=== PATIENT | male | born 1990 | race Caucasian/White ===

== ENCOUNTER 2019-05-19 13:52 | Observation (INO) | payer SELFPAY ==
[2019-05-19 17:55] VITALS: BMI 36.2
[2019-05-19] MEDS ORDERED: Senokot S 8.6-50 MG TAB PO PRN (19:36)
[2019-05-19] MEDS ORDERED: Acetaminophen 325 MG TAB PO PRN ×2 (19:36→21:23)
[2019-05-19] MEDS ORDERED: Ondansetron ODT 4 MG TAB PO PRN (19:36)
[2019-05-19] MEDS ORDERED: traZODone HCl 50 MG TAB PO PRN (19:40)
[2019-05-19] MEDS ORDERED: Dextrose 5% in Water 1,000 ML IV PRN (19:59)
[2019-05-19] MEDS ORDERED: Dextrose 50% Abboject 50 ML SYRINGE SLOW IVP PRN (19:59)
[2019-05-19] MEDS: Famotidine 20 MG TAB PO SCH (21:04)
[2019-05-19] MEDS: Doxycycline 100 MG CAP PO SCH (21:04)
[2019-05-19] MEDS: HumuLIN 70/30 (300 UNITS/3 ML VIAL) SC SCH (21:32)
[2019-05-19] MEDS: HumaLOG 300 UNITS/3 ML VIAL SC PRN (21:33)
--- NOTE | 2019-05-19 21:57 | PDOC.FPRHP ---
- History of Present Illness Chief Complaint: abdominal pain History of Present Illness: Patient is 28M with PMHx of DM1, hypertrigliceridemia, and multiple admissions for pancreatitis presenting as a transfer from the [facility] for intractable pain/ splenomegaly. Patient reports that the pain began on 05/17 as a sharp stabbing LUQ pain accompanied by the feeling of abdominal fullness. He reports that he has also been having nausea, but denies vomiting. He states he has also been having diarrhea for the past 3-4 days accompanied with blood on the toilet paper when he wipes. He also reports of SOB and some vision changes today s/p opiate administration at the [facility]. Patient denies recent travel. Denies being sick recently. He was seen last week for left arm cellulitis and prescribed a 7-day course of clindamycin, given a prednisone shot, and prescribed a 5 day course of PO prednisone, which he has not taken since he has been hospitalized. - Allergies/Adverse Reactions Allergies Allergy/AdvReac Type Severity Reaction Status Date / Time No Known Allergies Allergy Unverified 05/19/19 17:51 - Home Medications Medication Instructions Recorded Confirmed Type Insulin Aspart [Novolog] 60 unit SQ AC 05/19/19 05/19/19 History - History PMHx:DMI, Hypertrigliceridemia, multiple hospitalizations for pancreatitis PSHx: PTCA march 2019, no CAD FHx: mom: SLE, Brain cancer at age 44 Dad: healthy Social: no etoh for last 6 years, no smoking, no drugs - Review of Systems General: denies: fever/chills, weight/appetite/sleep changes Eyes: reports: vision changes. denies: eye pain ENT: denies: nasal congestion, rhinorrhea Respiratory: reports: shortness of breath. denies: cough Cardiovascular: denies: chest pain, edema Gastrointestinal: reports: nausea, diarrhea, abdominal pain. denies: vomiting Genitourinary: denies: incontinence, dysuria Skin: reports: rashes (LUE cellulitis) Musculoskeletal: denies: pain, tenderness Neurological: denies: numbness, weakness Psychological: denies: anxiety, depression - Vital signs BP: [146/82] HR: [85] RR: [20] Tmax: [99F] Pox: [91]% on [RA] Wt: [131.5kg] - Physical Exam Constitutional: awake, alert and oriented, well developed HEENT: normocephalic and atraumatic, EOMI Neck: supple, trachea midline Chest: no-tender to palpation, no lesions Heart: RRR, normal S1/S2 Lungs: no respiratory distress, good air movement Abdomen: soft, bowel sounds present, other (RUQ tenderness to palpation) Musculoskeletal: normal structure, normal tone Neurological: no focal deficit, normal sensation Skin: no rash/lesions (erythematous rash on Left forearm), good turgor, capillary refill <2 seconds Heme/Lymphatic: no unusual bruising or bleeding, no purpura Psychiatric: normal mood and affect, good judgment and insight FMR H&P: Results - Labs Result Diagrams: 05/20/19 07:46 05/20/19 04:14 - Radiology Interpretation CT scan - abdomen Status: report reviewed by me (spleen 19.6g42w85.5cm, hepatic steatosis, mild hepatomegaly) US - abdomen Status: report reviewed by me (splenomegaly, fatty liver) FMR H&P: A/P - Problem List (1) Splenomegaly Current Visit: Yes Status: Acute Code(s): R16.1 - SPLENOMEGALY, NOT ELSEWHERE CLASSIFIED (2) Hypertriglyceridemia Current Visit: Yes Status: Acute Code(s): E78.1 - PURE HYPERGLYCERIDEMIA (3) Diabetes type 1, uncontrolled Current Visit: Yes Status: Acute Code(s): E10.65 - TYPE 1 DIABETES MELLITUS WITH HYPERGLYCEMIA - Plan 28M presented as transfer from the [facility] for splenomegaly and intractable abdominal pain #Splenomegaly/intractable abdominal pain -patient has had diarrhea the last 3-4 days associated with timeline of pain onset -campy stool studies -hep a, b, c studies -hiv -cdiff -fobt -tylenol/tramadol for pain management -consult heme/onc in the am, appreciate recs #Hypertrigliceridemia -was reportedly d/c from last hospitalization on fenofibrate, but patient has no recollection of this -has multiple past hospitalizations for pancreatitis -PTCA march 2019 shows no CAD -begin fenofibrate this hospitalization and encourage continuation outpatient -begin statin this hospitalization #DMII -patient reportedly on 60u novolog pre-prandial -recent A1C 9.5 -putting patient on 70/30 regimen -aggressive sliding scale #LUE cellulitis -patient was on clindamycin and prednisone, but hasn't been on them since hospitalized -starte patient on doxycycline DVT proph: lovenox GI proph: pepcid Diet: CC Dispo: inpatient for splenomegaly workup and pain management Code: Full FMR H&P: Upper Level - Plan Date/Time: 05/19/192156 IDev MD, have evaluated this patient and agree with findings/plan as outlined by internal grinder resident. Pertinent changes/additions are listed here. Theo Cota is a 28 year old M with a PMH of type I DM per pt, hypertriglyceridemia, and multiple admission in past for pancreatitis who was transferred from the [facility] to [facility] for intractible abdominal pain and splenomegaly. Patient states that he has had nausea, vomiting, diarrhea and left sided abdominal pain for about 2 days but it became constant and / morning of 05/19/19. Describes pain as sharp with no radiation. Denies fever, chills, chest pain, dypsnea, GI bleeding. He went to [facility] where he was admitted. Labs there were significant for lipase of 93, triglyceride of 1161, hemoglobin a1c of 9.5, neg lactic acid, normal AST/ALT. CT abd at [facility] showed splenomegaly with no evidence of infarction and mild hepatic steatosis. At outside hospital, he was given multiple rounds of dilaudid for his abdominal pain. Patient states it improved his pain for the most part. Patient denies any sore throat, swollen lymph nodes, fevers, recent illnesses. Patient is being placed on obs/medical for intractible abdominal pain and splenomegaly. Will consult heme/onc in the AM. Continue pain control. Checking stool studies , HIV, Hepatitis panel, PT/INR, FOBT. Anticipate hospital stay < 48 hours. Please see internal grinder note above for full H&P, which I have reviewed and agree with. Addendum - Attending - Attending Attestation Date/Time: 05/20/19 1005 I personally evaluated the patient and discussed the management with Dr. Manzano and Aamir on 05/19. I agree with the History, Examination, Assessment and Plan documented above with any addition or exceptions noted below. No opiate rx on [place]. Await oncology consultation. Hep/HIV screens. Consider workup as an outpatient if pain improved in AM.
[2019-05-19] MEDS: traMADol HCl 50 MG TAB PO PRN (22:09)
[2019-05-20 01:09] LABS: HBCM Index 0.08 S/CO (0-0.79); HBSAg Index 0.18 S/CO (0-0.99); HIV (1/2) Antibody/Antigen Non-Reactive (NonReactive); HIV 1/2 INDEX 0.09 S/CO (<1.00); Hep A IgM AB Non-Reactive (NonReactive); Hep A IgM S/CO 0.12 S/CO (0-0.79); Hep B Surf Ag Non-Reactive S/CO (NonReactive); Hep C IgG Ab Non-Reactive (NonReactive); Hep C Index 0.06 S/CO (0-0.79); Hepatitis B Core IgM Abs Non-Reactive (NonReactive)
[2019-05-20 04:43] LABS: #Eosinphils 0.1 thou/uL (0.0-0.7); #Lymphocytes 1.3 thou/uL (1.20-3.40); #Monocytes 0.3 thou/uL (0.11-0.59); #Neutrophils 2.2 thou/uL (1.40-6.50); %Basophils 0.3 % (0.0-1.0); %Eosinophils 2.3 % (0.0-10.0); %Lymphocytes 33.6 % (21.0-51.0); %Monocytes 6.4 % (0.0-10.0); %Neutrophils 57.4 % (42.0-75.0); Hemoglobin 14.6 g/dL (14.0-18.0); Mean Corpuscular HGB CONC 36.3 g/dL (32.0-36.0); Mean Corpuscular Volume 77.2 fL (78.0-98.0); Mean Platelet Volume 7.7 fL (7.4-10.4); Platelet Count 125 thou/uL (130-400); RBC Distribution Width 13.6 % (11.5-14.5); White Blood Cell (WBC) Count 3.8 thou/uL (4.8-10.8)
[2019-05-20 04:51] LABS: Anion Gap 18 mmol/L (10-20); BUN (Urea Nitrogen) 11 mg/dL (8.9-20.6); Calc. Creatinine Clearance 246 mL/min (70-130); Carbon Dioxide 20 mmol/L (22-29); Chloride 100 mmol/L (98-107); Estimated GFR-MDRD Greater than 90; Glucose 279 mg/dL (70-105); Potassium 3.6 mmol/L (3.5-5.1); Sodium 134 mmol/L (136-145)
[2019-05-20] MEDS: HumaLOG 300 UNITS/3 ML VIAL SC PRN ×4 (06:41→21:00)
[2019-05-20 08:03] LABS: MONO NEGATIVE CONTROL ZONE White (Negative) (White); MONO POSITIVE CONTROL Pink Line (Positive) (PINK/RED); Mononucleosis NEGATIVE (NEGATIVE)
[2019-05-20 08:34] LABS: Band 4 % (5-11); Eosinophils 1 % (0-10); Hemoglobin 14.7 g/dL (14.0-18.0); Lymphocytes 31 % (21-51); MDiff Complete? YES; Mean Corpuscular HGB CONC 35.8 g/dL (32.0-36.0); Mean Corpuscular Hemoglobin 27.3 pg (27.0-31.0); Mean Corpuscular Volume 76.4 fL (78.0-98.0); Mean Platelet Volume 7.3 fL (7.4-10.4); Metamyelocyte 1 % (0-0); Microcytosis SLIGHT = 6-15 cells (100X) (0-5/hpf); Monocytes 3 % (0-10); Neutrophil 54 % (42-75); Platelet Count 115 thou/uL (130-400); Platelet Morphology Comment Appears Decreased; Polychromasia SLIGHT = 2-3 cells (100X) (0-2/hpf); RBC Distribution Width 13.6 % (11.5-14.5); Reactive Lymphocytes 6 % (0-10); Red Blood Cell (RBC) Count 5.39 mill/uL (4.70-6.10); White Blood Cell (WBC) Count 4.1 thou/uL (4.8-10.8)
[2019-05-20] MEDS: Famotidine 20 MG TAB PO SCH ×2 (09:11→20:56)
[2019-05-20] MEDS: Enoxaparin Sodium 40 MG/0.4 ML SYRINGE SC SCH (09:11)
[2019-05-20] MEDS: traMADol HCl 50 MG TAB PO PRN ×2 (09:16→18:43)
[2019-05-20] MEDS: Doxycycline 100 MG CAP PO SCH ×2 (09:17→20:57)
[2019-05-20] MEDS: HumuLIN 70/30 (300 UNITS/3 ML VIAL) SC SCH ×2 (10:48→20:57)
--- NOTE | 2019-05-20 10:48 | PDOC.FM ---
- Subjective Subjective: Pt states he has pain not controlled with tramadol. He has no other complaints. - Objective Vital Signs & Weight: Vital Signs (12 hours) Temp Pulse Resp BP Pulse Ox 05/20/19 08:00 98.1 F 67 20 140/83 95 05/20/19 04:15 98.2 F 74 18 154/73 H 91 L 05/20/19 00:05 98.2 F 96 18 139/80 93 L Weight Weight 131.542 kg Result Diagrams: 05/20/19 07:46 05/20/19 04:14 Phys Exam - Physical Examination Constitutional: NAD HEENT: PERRLA, sclera anicteric Neck: no nodes, no JVD Respiratory: no wheezing, no rhonchi, clear to auscultation bilateral Cardiovascular: RRR, no significant murmur Gastrointestinal: soft, no distention, positive bowel sounds tender to palpation in LUQ on medium palpation, no signs of peritonitis Neurological: non-focal, moves all 4 limbs Psychiatric: normal affect, A&O x 3 Dx/Plan (1) LUQ abdominal pain Code(s): R10.12 - LEFT UPPER QUADRANT PAIN Status: Acute (2) Diabetes type 1, uncontrolled Code(s): E10.65 - TYPE 1 DIABETES MELLITUS WITH HYPERGLYCEMIA Status: Acute (3) Hypertriglyceridemia Code(s): E78.1 - PURE HYPERGLYCERIDEMIA Status: Acute (4) Splenomegaly Code(s): R16.1 - SPLENOMEGALY, NOT ELSEWHERE CLASSIFIED Status: Acute - Plan Plan: 28M presented as transfer from the [facility] for splenomegaly and intractable abdominal pain #Splenomegaly # LUQ Pain Pain he states in not well controlled with tramadol, did not receive ibuprofen. Pain has been present for 3 days. Pain is not intractable, he was able to perform daily activities such as shower today. CT Abdomen revealed splenomegaly. RUQ u/s revealed mild hepatic steatosis. Patient has had diarrhea the last 3-4 days associated with timeline of pain onset. Hep C, HIV negative. Will continue to look for infectious etiology, consult surg, consult heme/onc. Pt has leukopenia, thrombocytopenia. -campy stool studies -hiv -cdiff -tylenol/tramadol for pain management -consult heme/onc, appreciate recs - consult surg, appreciate recs #Hypertrigliceridemia -was reportedly d/c from last hospitalization on fenofibrate, but patient has no recollection of this -has multiple past hospitalizations for pancreatitis -PTCA march 2019 shows no CAD -begin statin this hospitalization, hold off on fenifibrate at this time potentially start outpt #DMII -patient reportedly on 60u novolog pre-prandial -recent A1C 9.5 -putting patient on 70/30 regimen -aggressive sliding scale #LUE cellulitis -patient was on clindamycin and prednisone, but hasn't been on them since hospitalized -started patient on doxycycline, will re-assess need for abx DVT proph: lovenox GI proph: pepcid Diet: CC Dispo: inpatient for splenomegaly workup and pain management Code: Full Addendum - Attending - Attending Attestation Date/Time: 05/20/19 9858 I personally evaluated the patient and discussed the management with Dr. Rico. I agree with the History, Examination, Assessment and Plan documented above with any addition or exceptions noted below. He has splenic tendernes on exam, but no rebound. Pain is not intractable. He is able to ambulate, toilet, shower and take po without difficulty.
[2019-05-20] MEDS: Acetaminophen 325 MG TAB PO SCH ×3 (11:00→19:55)
[2019-05-20 15:12] LABS: Iron 45 ug/dL (65-175); Iron Binding Capacity, Total 265 mcg/dL (261-462)
[2019-05-20] MEDS: Ketorolac Tromethamine 30 MG/ML VIAL IVP PRN (21:00)
[2019-05-20] MEDS ORDERED: Atorvastatin Calcium 20 MG TAB PO SCH (21:00)
[2019-05-20] MEDS: Sodium Chloride 0.9% 10 ML ONE (21:14)
[2019-05-21] MEDS: Acetaminophen 325 MG TAB PO SCH ×3 (00:34→06:41)
[2019-05-21 04:52] LABS: ALT (SGPT) 21 U/L (8-55); AST (SGOT) 12 U/L (5-34); Albumin 3.7 g/dL (3.5-5.0); Alkaline Phosphatase 76 U/L (40-150); Anion Gap 16 mmol/L (10-20); BUN (Urea Nitrogen) 12 mg/dL (8.9-20.6); Bilirubin, Total 0.4 mg/dL (0.2-1.2); Calc. Creatinine Clearance 240 mL/min (70-130); Calcium 8.7 mg/dL (7.8-10.44); Carbon Dioxide 21 mmol/L (22-29); Chloride 102 mmol/L (98-107); Estimated GFR-MDRD Greater than 90; Globulin 2.8 g/dL (2.4-3.5); Glucose 311 mg/dL (70-105); Potassium 3.9 mmol/L (3.5-5.1); Protein, Total 6.5 g/dL (6.0-8.3); Sodium 135 mmol/L (136-145)
[2019-05-21 05:13] LABS: #Eosinphils 0.1 thou/uL (0.0-0.7); #Lymphocytes 1.4 thou/uL (1.20-3.40); #Monocytes 0.3 thou/uL (0.11-0.59); #Neutrophils 2.4 thou/uL (1.40-6.50); %Basophils 0.8 % (0.0-1.0); %Eosinophils 1.4 % (0.0-10.0); %Lymphocytes 33.3 % (21.0-51.0); %Monocytes 6.1 % (0.0-10.0); %Neutrophils 58.3 % (42.0-75.0); Hemoglobin 14.3 g/dL (14.0-18.0); Mean Corpuscular HGB CONC 37.9 g/dL (32.0-36.0); Mean Corpuscular Hemoglobin 29.3 pg (27.0-31.0); Mean Corpuscular Volume 77.1 fL (78.0-98.0); Mean Platelet Volume 7.6 fL (7.4-10.4); Platelet Count 112 thou/uL (130-400); Platelet Morphology Comment Appears Decreased; RBC Distribution Width 13.4 % (11.5-14.5); Red Blood Cell (RBC) Count 4.89 mill/uL (4.70-6.10); White Blood Cell (WBC) Count 4.1 thou/uL (4.8-10.8)
[2019-05-21] MEDS: HumaLOG 300 UNITS/3 ML VIAL SC PRN (06:50)
--- NOTE | 2019-05-21 06:59 | PDOC.FM ---
- Subjective Subjective: Pt is doing well. Pain is well controlled. He did not need tylenol through evening. - Objective Vital Signs & Weight: Vital Signs (12 hours) Temp Pulse Resp BP Pulse Ox 05/20/19 19:45 98.7 F 68 12 156/97 H 97 Weight Admit Weight 131.542 kg Weight 131.542 kg I&O: 05/19/19 05/20/19 05/21/19 06:59 06:59 06:59 Intake Total 1150 Balance 1150 Result Diagrams: 05/21/19 04:00 05/21/19 04:00 Phys Exam - Physical Examination Constitutional: NAD Respiratory: no wheezing, clear to auscultation bilateral Cardiovascular: RRR, no significant murmur Gastrointestinal: soft, no distention, positive bowel sounds mild tenderness in LUQ, pressure felt in all other quadrants Dx/Plan (1) LUQ abdominal pain Code(s): R10.12 - LEFT UPPER QUADRANT PAIN Status: Acute (2) Diabetes type 1, uncontrolled Code(s): E10.65 - TYPE 1 DIABETES MELLITUS WITH HYPERGLYCEMIA Status: Acute (3) Hypertriglyceridemia Code(s): E78.1 - PURE HYPERGLYCERIDEMIA Status: Acute (4) Splenomegaly Code(s): R16.1 - SPLENOMEGALY, NOT ELSEWHERE CLASSIFIED Status: Acute - Plan Plan: 28M presented as transfer from the [facility] for splenomegaly, discharge today #Splenomegaly # LUQ Pain LUQ pain has been present for 3 days. Pain is not intractable, he was able to perform daily activities such as shower today. CT Abdomen revealed splenomegaly. RUQ u/s revealed mild hepatic steatosis. Patient has had diarrhea the last 3-4 days associated with timeline of pain onset. Hep C, HIV negative. Will continue to look for infectious etiology, consult surg, consult heme/onc. Pt has leukopenia, thrombocytopenia. -campy stool studies -hiv -cdiff -tylenol/tramadol for pain management, one dose of toradol through evening - will controlled -consult heme/onc, appreciate recs; recommend flow cytometry-pending - consult surg, appreciate recs #Hypertrigliceridemia -was reportedly d/c from last hospitalization on fenofibrate, but patient has no recollection of this -has multiple past hospitalizations for pancreatitis -PTCA march 2019 shows no CAD -begin statin this hospitalization, hold off on fenifibrate at this time potentially start outpt #DMII -patient reportedly on 60u novolog pre-prandial -recent A1C 9.5 -putting patient on 70/30 regimen - increased to 35 U BID - C peptide pending -aggressive sliding scale #LUE cellulitis -patient was on clindamycin and prednisone, but hasn't been on them since hospitalized -started patient on doxycycline, will re-assess need for abx # Elevated Blood Pressure - consider lisinopril, renal protective as well DVT proph: lovenox GI proph: pepcid Diet: CC Dispo: inpatient for splenomegaly workup and pain management Code: Full Addendum - Attending - Attending Attestation Date/Time: 05/21/19 6791 I personally evaluated the patient and discussed the management with Dr. Rico. I agree with the History, Examination, Assessment and Plan documented above with any addition or exceptions noted below. Patient is stable for discharge. he will follow up with our clinic, and Heme Onc.
[2019-05-21 08:30] VITALS: BP 124/64; TEMP 97.9
[2019-05-21] MEDS ORDERED: HumuLIN 70/30 (300 UNITS/3 ML VIAL) SC SCH (09:00)
[2019-05-21] MEDS: Enoxaparin Sodium 40 MG/0.4 ML SYRINGE SC SCH (09:11)
[2019-05-21] MEDS: Famotidine 20 MG TAB PO SCH (09:11)
[2019-05-21] MEDS: Doxycycline 100 MG CAP PO SCH (09:12)
[2019-05-21] MEDS ORDERED: Sodium Chloride 0.9% 10 ML ONE (09:18)
[2019-05-21] MEDS: Ketorolac Tromethamine 30 MG/ML VIAL IVP PRN (09:20)
[2019-05-21] MEDS: Sodium Chloride 0.9% 10 ML ONE (09:21)
[2019-05-21] MEDS: traMADol HCl 50 MG TAB PO PRN (09:21)
--- NOTE | 2019-05-21 11:43 | CON ---
DATE OF CONSULTATION: REASON FOR CONSULT: Splenomegaly. HISTORY OF PRESENT ILLNESS: The patient is a 28-year-old male, who presented to the emergency room two days ago with abdominal discomfort. He complained of right upper quadrant pain, nausea, vomiting, and diarrhea. CT scan showed an enlarged spleen measuring 19.5 x 18.5 x 12 cm. He has a fatty liver. There was no portal vein thrombus. The patient had a hospitalization for pancreatitis in March. A CT scan of his abdomen done at that time showed a spleen measuring 18.3 cm. The patient has a history of pancreatitis with four admissions in the past two years. He recently moved here from [place] in October. He had two episodes of hospitalization for pancreatitis last year and two in this year with his last one being in March. He states he has never been evaluated by a apns and the cause of his pancreatitis is unknown. He denies any alcohol or drug use. Labs performed in the emergency room on the showed a white count of 4.6, hemoglobin of 15.3, and platelet count of 149,000, he was microcytic with an MCV value of 75. We were asked to see the patient regarding his splenomegaly. He again denies any fever, chills, or night sweats. No fatigue. He has lost 20 pounds over the last six months, but with intentional weight loss. No rash. No bleeding. No bruising. PAST MEDICAL HISTORY: 1. Chronic pancreatitis. 2. Diabetes mellitus 2. 3. Hypertriglyceridemia. 4. Left arm cellulitis. PAST SURGICAL HISTORY: PTCA in March 2019. ALLERGIES: NO KNOWN DRUG ALLERGIES. HOME MEDICATIONS: Insulin daily. FAMILY HISTORY: Mother at early age from brain cancer. Father is healthy. REVIEW OF SYSTEMS: A 10-point review of systems is negative except per HPI. PHYSICAL EXAMINATION: VITAL SIGNS: Temperature 97.9, pulse is 52, respiratory rate 20, and blood pressure is 124/64. He is 98% on room air. GENERAL: Well-developed, well-nourished male, in no acute distress. HEENT: Normocephalic and atraumatic. Pupils are equal and reactive to light. NECK: Supple. CV: Regular rate and rhythm. LUNGS: Clear anterior. ABDOMEN: Soft and nontender. Bowel sounds are positive. Unable to palpate spleen secondary to body habitus. EXTREMITIES: No clubbing, cyanosis, or edema. SKIN: No rash. Multiple tattoos. HEMATOLOGIC: No petechiae or purpura. NEUROLOGIC: Nonfocal. PSYCH: He is alert, oriented, and appropriate. PERTINENT LABS AND X-RAYS: Current WBCs are 4.1, hemoglobin 14.3, hematocrit 37.7, and platelet count is 112,000. He has 58% neutrophils, 33% lymphocytes, and ANC is 2.4. Sodium is 135, potassium is 3.9, chloride is 102, CO2 is 21, BUN is 12, creatinine is 0.86, and calcium is 8.7. Iron is 45, TIBC is 265, and ferritin is 31.56. Bilirubin is 0.4, AST is 12, ALT is 21, alkaline phosphatase is 76, serum total protein is 6.5, albumin is 3.7, and globulin is 2.8. Hepatitis and HIV are negative. Sunflower screen is negative. ASSESSMENT: 1. Splenomegaly. 2. Leukopenia and thrombocytopenia, likely secondary to splenomegaly. 3. Poorly controlled diabetes with a hemoglobin A1c of 9.5. 4. Hyperlipidemia, noncompliant with medications. 5. Abdominal pain. DISCUSSION: The patient states that he has been told in the past that his spleen was enlarged. He has never seen a apns for his pancreatitis or splenomegaly. We would recommend outpatient workup. He has no symptoms of lymphoma, but do agree with a flow cytometry, which has been sent already. Hemoglobin electrophoresis has also been sent given his low MCV. His intermittent low counts are likely due from splenomegaly, but again he needs further workup in the outpatient setting to determine the cause, which could certainly include pulmonary hypertension and fatty liver. He will be discharged home today as his grandmother is doing poorly and he wishes to go see her. He will follow up in the outpatient setting with the residents, who will refer him to GI and to us should any of the test come back abnormal. Thank you for the consult. Job ID: [id number]
--- NOTE | 2019-05-22 02:37 | DIS ---
DATE OF ADMISSION: 05/19/2019 DATE OF DISCHARGE: 05/21/2019 CONSULTS: Oncology. PROCEDURES: None. PRIMARY DIAGNOSES: 1. Splenomegaly. 2. Diabetes. 3. Hypertriglyceridemia. SECONDARY DIAGNOSES: None. DISCHARGE MEDICATIONS: 1. Humulin 70/30, 35 units subcutaneous b.i.d. 2. Atorvastatin 20 mg p.o. at bedtime. DISCONTINUED MEDICATIONS: Insulin Aspart 60 units subcutaneous. HISTORY OF PRESENT ILLNESS/HOSPITAL COURSE: The patient presented to [facility] as a transfer from [facility]. Before transfer, he was noted to have splenomegaly. CT scan revealed a spleen 19.5 cm x 12 cm x 18.5 cm, hepatic steatosis and mild hepatomegaly. The abdominal ultrasound revealed splenomegaly and fatty liver. When he got to [facility], he was noted to have intractable pain, so he was given Dilaudid at that time. At the time he got to [facility], his pain was not intractable and was controlled with tramadol and Tylenol. He did require ketorolac at one point in time. We worked him up for causes of splenomegaly, was found to have one being a malignancy. So, we consulted Oncology, who stated his white blood cell count of 4.1, hemoglobin 14.3, platelet count 112, was not superb remarkable, but advised ordering a flow cytometry of the blood. At this time, this is pending. His hepatitis panel was nonreactive, mono screen was negative, HIV was nonreactive. Iron was found to be low at 45, TIBC was 265, and ferritin was low at 31.56. He also has a plasmapheresis pending. His glucose was noted to be at 311, and he was taking NovoLog 60 units subcutaneous meals, so we discontinued this and started Humulin 70/30, 35 units subcutaneous b.i.d., which he tolerated well. This will need to be titrated up. He was also found to have an A1c of 9.5. He had hypertriglyceridemia, for which he has had multiple hospitalizations for pancreatitis. On his last hospitalization, he was supposed to start fenofibrate, but not. We will consider restarting this in the outpatient setting, and did start him on statin therapy. At this time, his workup has shown to be fairly unremarkable, but we are awaiting on a flow cytometry to further stratify the splenomegaly. His pain was under control by the time he left. If flow cytometry comes back with abnormalities, we will again contact Oncology. If not, patient is set to follow up with the clinic in 1 week. At this time, his diabetic medications, hypertriglyceridemia should be addressed. DISPOSITION: Stable. DISCHARGE INSTRUCTIONS: 1. Location: [facility]. 2. Diet: Low carb diet. 3. Activity: Ad quiana. 4. Followup: [facility]. 5. with Dr. Rico in 1 week. Job ID: [id number]
[2019-05-22 16:09] LABS: Hemoglobin A2 1.7 % (1.8-3.2); Hemoglobin F 0 % (0.0-2.0); Interpretation Note: (.)
== END 2019-05-21 11:50 | disposition home or self-care (01) ==
LOC: INTOOBSV 17:24 → 3SE 17:24
PROVIDERS: ADMIT Family Medicine; ATTEND Family Medicine
DX: R16.1 Splenomegaly, not elsewhere classified (principal); K86.1 Other chronic pancreatitis; E11.9 Type 2 diabetes mellitus without complications; L03.114 Cellulitis of left upper limb; E78.1 Pure hyperglyceridemia; Z79.4 Long term (current) use of insulin; Z79.899 Other long term (current) drug therapy
CPT/HCPCS: 36415; 36416; 80048; 80053; 80074; 82274; 82728; 83021; 83540; 83550; 84681; 85025; 85060; 86308; 87045; 87046; 87324; 87389; 87427; 87449; 88184; 96372; 96374; 96376; G0378; J1650; J1815; J1885; Q0162

== ENCOUNTER 2019-10-26 03:23 | Inpatient (IN) | payer SELFPAY ==
[2019-10-26] MEDS ORDERED: Ondansetron PF 4 MG/2 ML Vial ONE (03:55)
[2019-10-26] MEDS ORDERED: Morphine 4 MG/ML VIAL ONE ×3 (03:55→04:48)
[2019-10-26] MEDS ORDERED: Clindamycin/D5W 600 mg/50 ml Premix Bag ONE (03:55)
[2019-10-26 04:26] LABS: #Eosinphils 0.1 thou/uL (0.0-0.7); #Lymphocytes 1.7 thou/uL (1.20-3.40); #Monocytes 0.4 thou/uL (0.11-0.59); %Basophils 0.1 % (0.0-1.0); %Eosinophils 1.1 % (0.0-10.0); %Lymphocytes 27.7 % (21.0-51.0); %Monocytes 5.9 % (0.0-10.0); %Neutrophils 65.2 % (42.0-75.0); Hemoglobin 14.7 g/dL (14.0-18.0); Mean Corpuscular HGB CONC 36.9 g/dL (32.0-36.0); Mean Corpuscular Hemoglobin 28.9 pg (27.0-31.0); Mean Corpuscular Volume 78.4 fL (78.0-98.0); Mean Platelet Volume 7.7 fL (7.4-10.4); Platelet Count 136 thou/uL (130-400); RBC Distribution Width 13.1 % (11.5-14.5); Red Blood Cell (RBC) Count 5.07 mill/uL (4.70-6.10); White Blood Cell (WBC) Count 6.2 thou/uL (4.8-10.8)
[2019-10-26 04:47] LABS: ALT (SGPT) 27 U/L (8-55); AST (SGOT) 14 U/L (5-34); Albumin 4.1 g/dL (3.5-5.0); Alkaline Phosphatase 98 U/L (40-110); Anion Gap 20 mmol/L (10-20); BUN (Urea Nitrogen) 12 mg/dL (8.9-20.6); Bilirubin, Total 0.9 mg/dL (0.2-1.2); Calc. Creatinine Clearance 0 mL/min (70-130); Calcium 8.9 mg/dL (7.8-10.44); Carbon Dioxide 18 mmol/L (22-29); Chloride 102 mmol/L (98-107); Estimated GFR-MDRD 71; Glucose 457 mg/dL (70-105); Protein, Total 7.1 g/dL (6.0-8.3); Sodium 136 mmol/L (136-145)
[2019-10-26] MEDS ORDERED: Morphine 2 MG/ML SYRINGE ONE (04:48)
[2019-10-26] MEDS ORDERED: Insulin Regular 300 UNITS/3 ML VIAL ONE (05:00)
[2019-10-26 07:30] LABS: Lactic Acid 1.8 mmol/L (0.5-2.2)
[2019-10-26] MEDS ORDERED: Ondansetron ODT 4 MG TAB PO PRN (08:01)
[2019-10-26] MEDS ORDERED: Ondansetron PF 4 MG/2 ML Vial IVP PRN (08:01)
[2019-10-26] MEDS ORDERED: Morphine 2 MG/ML SYRINGE SLOW IVP PRN (08:03)
[2019-10-26] MEDS ORDERED: Sodium Chloride 0.9% 1,000 ML IV SCH (08:15)
[2019-10-26] MEDS ORDERED: Dextrose 50% Abboject 50 ML SYRINGE SLOW IVP PRN (08:16)
[2019-10-26] MEDS ORDERED: Dextrose 5% in Water 1,000 ML IV PRN (08:16)
[2019-10-26 08:25] VITALS: BMI 35.7
[2019-10-26] MEDS ORDERED: Vancomycin HCl 1 GM in Premix Bag 1 BAG IVPB SCH (09:00)
--- NOTE | 2019-10-26 09:17 | HP ---
CHIEF COMPLAINT: Perineal abscess. HISTORY OF PRESENT ILLNESS: This patient is a 29-year-old male with a history of chronic splenomegaly, which was thoroughly evaluated previously, has history of diabetes mellitus, history of pancreatitis and some prior skin abscesses including the perineum in his back. He reports that he was in his usual state of health until yesterday when he went to work, he felt slight discomfort in the perineal area. 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 He denies any fevers or chills or any drainage from this area. REVIEW OF SYSTEMS: All systems reviewed, all pertinent positives and negatives noted in the history of present illness. PAST MEDICAL HISTORY: Notable for the splenomegaly with some thrombocytopenia on his last visit. This was evaluated in May with some flow cytometry, which was negative for any evidence of myeloproliferative disorder or malignancy. He has a history of diabetes mellitus. He has been told that he is a type 1 diabetic and went for 20 plus years without knowing he was a diabetic. He has been on metformin, was taken off it, and is now on high dose insulin. He had a C-peptide checked in May, which was elevated consistent with type 2 diabetes. He has a history of recurrent pancreatitis and presumably it was the source of which was never fully elucidated. PAST SURGICAL HISTORY: Pilonidal cyst. FAMILY HISTORY: Father had hypertension. Mother has lupus and diabetes. SOCIAL HISTORY: The patient does not smoke, drink, or do drugs. He is single. He says he quit drinking about 6 years ago. Never drank heavily. He is full code and his father, Ezra tS, would be his surrogate decision maker should that become necessary. ALLERGIES: NKDA MEDICATIONS: 70/30 60 units SQ q am 30 unit QAC PHYSICAL EXAMINATION: VITAL SIGNS: Most recent vitals, blood pressure 149/79, pulse 99, O2 saturations 98%, respirations 13. GENERAL APPEARANCE: Age-appropriate male, overweight, in no distress, but clearly uncomfortable. HEENT: PERRL. No OP lesions. NECK: Supple and symmetric. HEART: Regular rate and rhythm without murmurs, gallops, or rubs. LUNGS: Clear to auscultation bilaterally with good chest wall expansion and air exchange. ABDOMEN: Soft, nontender, and nondistended. Positive bowel sounds. No masses. No organomegaly. EXTREMITIES: No cyanosis, clubbing, or edema. PSYCHIATRIC: Normal affect and behavior. NEUROLOGIC: Cranial nerves are intact. He has no peripheral focal deficits. Cognitively intact. : Reveals approximately 3 x 6 cm raised tender abscess area posterior to the left hemiscrotum in the perineum. There is no significant halo of cellulitic changes. There does appear to be some evidence of prior scarring from prior abscesses in this area. LABORATORY DATA: White count 6.2, hemoglobin 14.7, platelets 136. Sodium 136, potassium 4.0, chloride 102, CO2 is 18, BUN 12, creatinine 1.22, glucose 457. Lactic acid 2.8, subsequent 1.8. AST is 14, ALT is 27. IMPRESSION AND PLAN: 1. Left perineal abscess. The patient has a history of prior skin abscesses. He has no prior culture results within our computer system. We will cover with vancomycin and Zosyn. I am concerned that the patient may be at risk for methicillin-resistant Staphylococcus aureus given recurrent nature of these. We will consult Urology to determine if incision and drainage is indicated. Certainly may be in the interim, we will continue to cover with pain medications and keep him n.p.o. for now and avoid anticoagulation. 2. Diabetes mellitus, poorly controlled. The patient reports he is taking high dose insulin. He was taken off metformin because he was told it was not working. He does not currently have a primary care provider. There is clear evidence that he is type 2 based on elevated C-peptide level and the large amounts of insulin he is requiring. We will keep him on sliding scale for now as he is n.p.o. We will hydrate fairly aggressively. It appears that he received 1 L of fluid in the emergency department along with 10 units of insulin. He does not appear to have any evidence of ketoacidosis or hyperosmolar state. 3. History of splenomegaly, previously evaluated. 4. History of pancreatitis. No evidence of currently active disease. Job ID: [id number] [facility]
[2019-10-26] MEDS: Sodium Chloride 0.9% 1,000 ML IV SCH ×2 (09:18→17:13)
[2019-10-26] MEDS ORDERED: Lidocaine 1% (PF) 30 ML VIAL ONE (10:02)
[2019-10-26] MEDS ORDERED: Lidocaine 1% (PF) 30 ML VIAL SC SCH (10:15)
[2019-10-26] MEDS ORDERED: HYDROmorphone 0.5 MG/0.5 ML SYRINGE SLOW IVP SCH (10:15)
[2019-10-26] MEDS ORDERED: Fentanyl 100 MCG/2 ML VIAL SLOW IVP SCH (10:30)
[2019-10-26] MEDS ORDERED: Ketorolac Tromethamine 30 MG/ML VIAL IVP PRN (11:01)
[2019-10-26] MEDS ORDERED: Acetaminophen 500 MG TAB PO PRN (11:03)
[2019-10-26] MEDS: Piperacillin/Tazobactam 3.375 GM in Sodium Chloride 0.9% 100 ML IVPB SCH ×3 (12:02→23:57)
[2019-10-26] MEDS: HumaLOG 300 UNITS/3 ML VIAL SC PRN ×2 (12:44→16:07)
[2019-10-26] MEDS: Morphine 2 MG/ML SYRINGE SLOW IVP PRN ×3 (12:48→20:58)
--- NOTE | 2019-10-26 20:59 | CON ---
DATE OF CONSULTATION: 10/26/2019 REASON FOR CONSULT: Scrotal abscess. CHIEF COMPLAINT: Perineal pain. HISTORY OF PRESENT ILLNESS: This is a 29-year-old male with acute onset of scrotal discomfort and swelling, beginning yesterday afternoon and acutely worsening overnight. He was seen in the emergency room, where he was evaluated and found to have a scrotal/perineal abscess. He does have a history of type 1 diabetes, managed with insulin and so he was admitted to the Hospitalist Service and Urology consultation was requested to drain the abscess. Glucose has been elevated. The patient reports no fevers, dysuria, hematuria, headaches, chest pains, difficulty breathing. PAST MEDICAL HISTORY: Diabetes as mentioned above. PAST SURGICAL HISTORY: Pilonidal cyst. FAMILY HISTORY: Reviewed, noncontributory. SOCIAL HISTORY: No current substance abuse. 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 REVIEW OF SYSTEMS: A 10-point review of systems performed, negative except as mentioned in my HPI. MEDICATIONS: Reviewed. No pertinent urology medications. PHYSICAL EXAMINATION: GENERAL: No acute distress, resting comfortably in bed, conversant. RESPIRATORY: Breathing unlabored. Symmetric chest expansion. HEENT: Head, normocephalic and atraumatic. Eyes, normal eye movements. Sclerae nonicteric. HEART: Regular rate and rhythm. ABDOMEN: Soft, nontender, and nondistended. : No flank tenderness. No suprapubic tenderness. Normal penile exam and scrotal exam. He does have a small abscess no more than 2 cm in size on the left side of his perineum at the base of the scrotum. There is a small area of fluctuance with minimal erythema over top. There is no crepitus. SKIN: Warm and dry. EXTREMITIES: Without clubbing, cyanosis, or edema. NEUROLOGIC: Alert and oriented x3. PSYCHIATRIC: Normal mood and affect. LABORATORY DATA: White count 6.2, glucose 457 on admission. IMPRESSION AND PLAN: Left perineal abscess. The patient will require drainage at the bedside. I have ordered fentanyl and lidocaine for this purpose. The patient and I discussed his options and we both agreed that drainage is the correct course from here. He likely will need antibiotics for several days afterwards, but antibiotics will not fix his abscess, which he understands. I explained the procedure in detail including the risks of bleeding, infection, pain, need for repeat drainage or debridement. He expressed understanding and wishes to proceed. DESCRIPTION OF PROCEDURE: Under sterile conditions, I anesthetized the surrounding tissues of the abscess. An 11 blade was used to make a 1.5 cm incision over the area of greatest fluctuance. Purulent drainage was noted. This was irrigated with half-strength peroxide. I then packed the wound with iodoform gauze and covered with 4x4s. The patient tolerated the procedure very well. There were no complications. Job ID: [id number]
[2019-10-27] MEDS: Morphine 2 MG/ML SYRINGE SLOW IVP PRN ×6 (01:00→21:43)
[2019-10-27] MEDS: Sodium Chloride 0.9% 1,000 ML IV SCH ×3 (01:08→17:52)
[2019-10-27] MEDS: Piperacillin/Tazobactam 3.375 GM in Sodium Chloride 0.9% 100 ML IVPB SCH ×3 (05:31→17:52)
[2019-10-27 05:46] LABS: #Eosinphils 0.1 thou/uL (0.0-0.7); #Lymphocytes 1.3 thou/uL (1.20-3.40); #Monocytes 0.5 thou/uL (0.11-0.59); #Neutrophils 4.6 thou/uL (1.40-6.50); %Basophils 0.2 % (0.0-1.0); %Monocytes 7.2 % (0.0-10.0); %Neutrophils 71.6 % (42.0-75.0); Mean Corpuscular HGB CONC 34.4 g/dL (32.0-36.0); Mean Corpuscular Hemoglobin 27.4 pg (27.0-31.0); Mean Corpuscular Volume 79.7 fL (78.0-98.0); Mean Platelet Volume 7.4 fL (7.4-10.4); Platelet Count 116 thou/uL (130-400); RBC Distribution Width 12.9 % (11.5-14.5); Red Blood Cell (RBC) Count 5.09 mill/uL (4.70-6.10); White Blood Cell (WBC) Count 6.4 thou/uL (4.8-10.8)
[2019-10-27 06:03] LABS: Anion Gap 12 mmol/L (10-20); BUN (Urea Nitrogen) 8 mg/dL (8.9-20.6); Calc. Creatinine Clearance 190 mL/min (70-130); Calcium 8.4 mg/dL (7.8-10.44); Carbon Dioxide 26 mmol/L (22-29); Chloride 100 mmol/L (98-107); Estimated GFR-MDRD 83; Glucose 302 mg/dL (70-105); Potassium 4.3 mmol/L (3.5-5.1); Sodium 134 mmol/L (136-145)
[2019-10-27] MEDS: HumaLOG 300 UNITS/3 ML VIAL SC PRN ×3 (06:26→17:55)
[2019-10-27] MEDS ORDERED: Insulin Glargine 30 UNITS in Pre-Filled Syringe 1 EACH SC SCH (12:15)
[2019-10-27] MEDS ORDERED: Senokot 8.6 MG TAB PO PRN (12:22)
[2019-10-27] MEDS ORDERED: Enoxaparin Sodium 40 MG/0.4 ML SYRINGE SC SCH (12:30)
[2019-10-27 12:32] LABS: Vancomycin, Trough 21.4 ug/mL
[2019-10-27] MEDS ORDERED: Lisinopril 5 MG TAB PO SCH (12:45)
[2019-10-27] MEDS: Vancomycin 1.5 GRAM/300 ML BAG 1.5 GM in Premix Bag 1 BAG IVPB SCH ×2 (13:48→21:45)
--- NOTE | 2019-10-27 15:40 | PRG ---
DATE OF SERVICE: 10/27/2019 CHIEF COMPLAINT: Perineal abscess. SUBJECTIVE: No acute events overnight. The patient denies fevers, nausea, dysuria, or chest pains. He does report that the wound has been painful overnight. REVIEW OF SYSTEMS: A 10-point review of systems otherwise negative. OBJECTIVE: VITAL SIGNS: Afebrile, mild tachycardia overnight. GENERAL: No acute distress, conversant. LUNGS: Unlabored breathing. Symmetric chest expansion. HEART: Regular rate and rhythm. ABDOMEN: Soft, nontender, and nondistended. : Scrotum unremarkable, base of the scrotum/perineum without erythema, mild induration. The packing was removed. Wound appears healthy clean gauze placed. SKIN: Warm and dry. NEUROLOGIC: Alert and oriented x3. LABORATORY DATA: White count 6.4. Creatinine 1.06. Blood sugar has been typically over 300. ASSESSMENT AND PLAN: Scrotal/perineal abscess, postop day 1, drainage at bedside. Packing removed. We discussed wound care including daily baths and showers, cleaning with soapy water, covering with dry gauze. He will need antibiotics for the next week and will follow up in my office around two weeks. Job ID: [id number] [facility]
--- NOTE | 2019-10-27 22:06 | PDOC.HOSPP ---
- Subjective Subjective: Doing ok. Still has pain. - Objective Vital Signs & Weight: Vital Signs (12 hours) Temp Pulse Resp BP BP Pulse Ox 10/27/19 19:46 98.6 F 98 18 147/84 H 96 10/27/19 18:22 167/100 H 10/27/19 17:30 99.1 F 93 18 176/103 H 96 10/27/19 13:46 101 H 154/97 H 10/27/19 11:00 98.8 F 101 H 18 154/98 H 96 Weight Weight 285 lb 14.4 oz I&O: 10/26/19 10/27/19 10/28/19 06:59 06:59 06:59 Intake Total 4430 2600 Output Total 3850 2000 Balance 580 600 Result Diagrams: 10/27/19 05:23 10/27/19 05:23 Additional Labs: Accuchecks 10/27/19 10/27/19 10/27/19 19:28 16:15 11:20 POC Glucose 272 H 333 H 304 H 10/27/19 05:30 POC Glucose 331 H Hospitalist ROS - Medication Medications: Active Medications Generic Name Dose Route Start Last Admin Trade Name Freq PRN Reason Stop Dose Admin Acetaminophen 1,000 mg 10/26/19 11:03 10/26/19 21:00 Tylenol PO 1,000 mg Q6H PRN Administration Moderate to Severe Pain (6-10) Piperacillin Sod/Tazobactam 100 mls @ 200 mls/hr 10/26/19 12:00 10/27/19 17: 52 Sod 3.375 gm/ Sodium Chloride IVPB 100 mls Q6HR LUAN Administration Sodium Chloride 1,000 mls @ 125 mls/hr 10/26/19 08:17 10/27/19 17:52 Normal Saline 0.9% IV 1,000 mls .Q8H LUAN Administration Vancomycin HCl 1.5 gm/ Device 300 mls @ 200 mls/hr 10/27/19 13:00 10/27/19 21 :45 IVPB 300 mls 0500,1300,2100 LUAN Administration Insulin Human Lispro 0 units 10/26/19 08:16 10/27/19 17:55 Humalog SC 11 units .AGGRESSIVE SLIDING PRN Administration Aggressive Correctional Scale Morphine Sulfate 6 mg 10/26/19 11:02 10/27/19 21:43 Morphine SLOW IVP 6 mg Q4H PRN Administration Moderate to Severe Pain (6-10) Sodium Chloride 10 ml 10/26/19 09:00 10/27/19 21:45 Flush - Normal Saline IVF 10 ml Q12HR LUAN Administration - Exam General Appearance: NAD, awake alert Heart: RRR, no murmur, no gallops, no rubs, normal peripheral pulses Respiratory: CTAB, no wheezes, no rales, no ronchi, normal chest expansion, no tachypnea, normal percussion Gastrointestinal: soft, non-tender, non-distended, normal bowel sounds, no palpable masses, no hepatomegaly, no splenomegaly, no bruit Extremities: no cyanosis, no clubbing, no edema Skin: normal turgor, no lesions, no rashes Skin - other findings: Left perineal abscess improved. Musculoskeletal: normal tone, normal strength, no muscle wasting Hosp A/P (1) Perineal abscess Code(s): L02.215 - CUTANEOUS ABSCESS OF PERINEUM Status: Acute (2) Diabetes type 1, uncontrolled Code(s): E10.65 - TYPE 1 DIABETES MELLITUS WITH HYPERGLYCEMIA Status: Acute (3) Hypertriglyceridemia Code(s): E78.1 - PURE HYPERGLYCERIDEMIA Status: Acute (4) Splenomegaly Code(s): R16.1 - SPLENOMEGALY, NOT ELSEWHERE CLASSIFIED Status: Acute - Plan Abscess was drained yesterday. Doing ok. Looks good. Blood sugars are terrible. Start some long acting insulin today. BP high. Adding acei.
[2019-10-28] MEDS: Piperacillin/Tazobactam 3.375 GM in Sodium Chloride 0.9% 100 ML IVPB SCH ×5 (00:54→23:54)
[2019-10-28] MEDS: Morphine 2 MG/ML SYRINGE SLOW IVP PRN ×6 (01:43→23:55)
[2019-10-28] MEDS: Sodium Chloride 0.9% 1,000 ML IV SCH ×3 (05:13→15:53)
[2019-10-28] MEDS: Vancomycin 1.5 GRAM/300 ML BAG 1.5 GM in Premix Bag 1 BAG IVPB SCH ×3 (05:13→20:02)
[2019-10-28] MEDS: HumaLOG 300 UNITS/3 ML VIAL SC PRN ×2 (06:01→11:32)
[2019-10-28] MEDS: Senokot S 8.6-50 MG TAB PO SCH ×2 (08:19→19:21)
[2019-10-28] MEDS: Famotidine 20 MG TAB PO SCH ×2 (08:19→19:22)
[2019-10-28] MEDS: Enoxaparin Sodium 40 MG/0.4 ML SYRINGE SC SCH (08:20)
[2019-10-28] MEDS: Lisinopril 5 MG TAB PO SCH (08:20)
[2019-10-28 12:57] LABS: Vancomycin, Trough 15.1 ug/mL
[2019-10-28] MEDS ORDERED: Iopamidol-370 76% 500 ML 1 ML ONE (14:01)
[2019-10-28] MEDS: Insulin Regular 300 UNITS/3 ML VIAL SC SCH (17:42)
--- NOTE | 2019-10-28 17:55 | CT ---
CT OF PELVIS PERFORMED WITH CONTRAST ENHANCEMENT: 10/28/19 HISTORY: Evaluation for a perineal abscess. There is no free fluid noted within the pelvis. No pelvic lymphadenopathy or mass. The bladder is nor mal in position. The prostate does not appear significantly enlarged. There is some air seen within the soft tissues. This is posterior to the region of the base of the sc rotum and mainly is related to some inflammatory change. There appears to be a tiny air fluid level i n this region and measures approximately 1.7 cm in maximum size. IMPRESSION: Inflammatory change and air seen within the superficial subcutaneous fat along the medial aspect of t he upper thigh directly posterior to the region of the base of the scrotum. No significant fluid santy ection seen. POS: [facility]
--- NOTE | 2019-10-28 19:03 | PDOC.HOSPP ---
- Subjective Subjective: Doing ok, but has increased area of induration and pain in the area of the abscess. - Objective Vital Signs & Weight: Vital Signs (12 hours) Temp Pulse Resp BP BP Pulse Ox 10/28/19 16:40 98.8 F 81 20 149/83 H 97 10/28/19 12:13 98.0 F 79 18 161/98 H 99 10/28/19 08:20 74 149/74 H 10/28/19 08:00 98.1 F 74 18 149/74 H 97 10/28/19 07:40 97 Weight Weight 285 lb 14.4 oz I&O: 10/27/19 10/28/19 10/29/19 06:59 06:59 06:59 Intake Total 4430 4850 2825 Output Total 3850 3550 Balance 580 1300 2825 Result Diagrams: 10/27/19 05:23 10/27/19 05:23 Additional Labs: Accuchecks 10/28/19 10/28/19 10/28/19 16:28 10:57 04:41 POC Glucose 277 H 315 H 283 H 10/27/19 19:28 POC Glucose 272 H Hospitalist ROS - Medication Medications: Active Medications Generic Name Dose Route Start Last Admin Trade Name Freq PRN Reason Stop Dose Admin Acetaminophen 1,000 mg 10/26/19 11:03 10/26/19 21:00 Tylenol PO 1,000 mg Q6H PRN Administration Moderate to Severe Pain (6-10) Enoxaparin Sodium 40 mg 10/28/19 09:00 10/28/19 08:20 Lovenox SC 40 mg 0900 LUAN Administration Famotidine 20 mg 10/28/19 09:00 10/28/19 08:19 Pepcid PO 20 mg BID LUAN Administration Piperacillin Sod/Tazobactam 100 mls @ 200 mls/hr 10/26/19 12:00 10/28/19 17: 53 Sod 3.375 gm/ Sodium Chloride IVPB 100 mls Q6HR LUAN Administration Sodium Chloride 1,000 mls @ 125 mls/hr 10/26/19 08:17 10/28/19 15:53 Normal Saline 0.9% IV Not Given .Q8H LUAN Vancomycin HCl 1.5 gm/ Device 300 mls @ 200 mls/hr 10/27/19 13:00 10/28/19 13 :51 IVPB 300 mls 0500,1300,2100 LUAN Administration Insulin Human Lispro 0 units 10/26/19 08:16 10/28/19 11:32 Humalog SC 11 units .AGGRESSIVE SLIDING PRN Administration Aggressive Correctional Scale Insulin Human Regular 15 units 10/28/19 17:00 10/28/19 17:42 Humulin R SC 15 unit AC LUAN Administration Ketorolac Tromethamine 30 mg 10/26/19 11:01 10/28/19 04:03 Toradol IVP 10/31/19 11:02 30 mg Q6H PRN Administration Pain Lisinopril 5 mg 10/28/19 09:00 10/28/19 08:20 Zestril PO 5 mg DAILY LUAN Administration Morphine Sulfate 6 mg 10/26/19 11:02 10/28/19 15:50 Morphine SLOW IVP 6 mg Q4H PRN Administration Moderate to Severe Pain (6-10) Senna/Docusate Sodium 2 tab 10/28/19 09:00 10/28/19 08:19 Senokot S PO Not Given BID LUAN Sodium Chloride 10 ml 10/26/19 09:00 10/28/19 08:21 Flush - Normal Saline IVF 10 ml Q12HR LUAN Administration - Exam General Appearance: NAD, awake alert Heart: RRR, no murmur, no gallops, no rubs, normal peripheral pulses Respiratory: CTAB, no wheezes, no rales, no ronchi, normal chest expansion, no tachypnea, normal percussion Gastrointestinal: soft, non-tender, non-distended, normal bowel sounds, no palpable masses, no hepatomegaly, no splenomegaly, no bruit Skin - other findings: Induration of left perineal area at I&D site 4 cm. No cellulitic changes. Hosp A/P (1) Perineal abscess Code(s): L02.215 - CUTANEOUS ABSCESS OF PERINEUM Status: Acute (2) Diabetes type 1, uncontrolled Code(s): E10.65 - TYPE 1 DIABETES MELLITUS WITH HYPERGLYCEMIA Status: Acute (3) Hypertriglyceridemia Code(s): E78.1 - PURE HYPERGLYCERIDEMIA Status: Acute (4) Splenomegaly Code(s): R16.1 - SPLENOMEGALY, NOT ELSEWHERE CLASSIFIED Status: Acute - Plan Abscess was drained 10/26. Doing ok. Looks good. Blood sugars are terrible. Start some long acting insulin yesterday. He is ordering additional food. Adding some short acting insulin with meals. He is on an unusual regimen at home. BP high. Added ACEI.
[2019-10-28] MEDS ORDERED: traMADol HCl 50 MG TAB PO PRN (19:46)
[2019-10-29] MEDS: Morphine 2 MG/ML SYRINGE SLOW IVP PRN ×2 (04:02→08:31)
[2019-10-29] MEDS: Piperacillin/Tazobactam 3.375 GM in Sodium Chloride 0.9% 100 ML IVPB SCH ×2 (05:06→11:30)
[2019-10-29] MEDS: Vancomycin 1.5 GRAM/300 ML BAG 1.5 GM in Premix Bag 1 BAG IVPB SCH ×2 (05:06→12:17)
[2019-10-29] MEDS: Sodium Chloride 0.9% 1,000 ML IV SCH ×2 (05:07→07:35)
[2019-10-29 05:46] LABS: #Eosinphils 0.1 thou/uL (0.0-0.7); #Lymphocytes 1.1 thou/uL (1.20-3.40); #Monocytes 0.2 thou/uL (0.11-0.59); #Neutrophils 2.9 thou/uL (1.40-6.50); %Basophils 0.2 % (0.0-1.0); %Eosinophils 2.3 % (0.0-10.0); %Monocytes 4.5 % (0.0-10.0); %Neutrophils 67.1 % (42.0-75.0); Hemoglobin 13.3 g/dL (14.0-18.0); Mean Corpuscular HGB CONC 33.8 g/dL (32.0-36.0); Mean Corpuscular Hemoglobin 26.9 pg (27.0-31.0); Mean Corpuscular Volume 79.5 fL (78.0-98.0); Mean Platelet Volume 7.7 fL (7.4-10.4); Platelet Count 120 thou/uL (130-400); RBC Distribution Width 12.7 % (11.5-14.5); Red Blood Cell (RBC) Count 4.94 mill/uL (4.70-6.10); White Blood Cell (WBC) Count 4.3 thou/uL (4.8-10.8)
[2019-10-29 06:00] LABS: Anion Gap 15 mmol/L (10-20); BUN (Urea Nitrogen) 11 mg/dL (8.9-20.6); Calc. Creatinine Clearance 185 mL/min (70-130); Calcium 8.3 mg/dL (7.8-10.44); Carbon Dioxide 21 mmol/L (22-29); Chloride 103 mmol/L (98-107); Estimated GFR-MDRD 81; Glucose 375 mg/dL (70-105); Potassium 4.1 mmol/L (3.5-5.1); Sodium 135 mmol/L (136-145)
[2019-10-29] MEDS: HumaLOG 300 UNITS/3 ML VIAL SC PRN (06:14)
[2019-10-29] MEDS: Famotidine 20 MG TAB PO SCH (08:28)
[2019-10-29] MEDS: Insulin Regular 300 UNITS/3 ML VIAL SC SCH ×2 (08:28→11:30)
[2019-10-29] MEDS: Lisinopril 5 MG TAB PO SCH (08:28)
[2019-10-29] MEDS: Senokot S 8.6-50 MG TAB PO SCH (08:29)
[2019-10-29] MEDS: Enoxaparin Sodium 40 MG/0.4 ML SYRINGE SC SCH (08:29)
[2019-10-29] MEDS ORDERED: Insulin Glargine 35 UNITS in Pre-Filled Syringe 1 EACH SC SCH (09:00)
[2019-10-29 13:05] VITALS: BP 154/95; TEMP 98.5
--- NOTE | 2019-10-29 17:31 | PRG ---
DATE OF SERVICE: 10/29/2019 SUBJECTIVE: No changes overnight. The patient continues to have discomfort from the abscess site. He denies fevers, nausea, or dysuria. OBJECTIVE: VITAL SIGNS: Afebrile. Vitals stable. GENERAL: No acute distress. LUNGS: Unlabored breathing. ABDOMEN: Soft, nontender, and nondistended. Scrotal exam is normal. Abscess site in the perineum is healing nicely. He continues to have induration, which is expected at this point after drainage. There is no fluctuance or erythema. There is certainly no crepitus. ASSESSMENT AND PLAN: Postoperative day 3, incision and drainage of perineal abscess. CT scan has been reviewed. The changes noted are consistent with a previously drained, irrigated, packed abscess cavity. His exam is benign. He can go home with antibiotics for the next week, and I will follow up between 1 and 2 weeks to ensure that he is recovering well. Job ID: [id number]
--- NOTE | 2019-10-30 03:31 | PQF ---
[employer] R Instructor Crystal Reports Winform ViewerFRANCHESKA COLES EVAN [id number] CLINICAL DOCUMENTATION CLARIFICATION FORM: POST DISCHARGE Addendum to original discharge summary date: 11/04/2019 Late entry note date: 11/04/2019 DATE: 10/30/2019 ATTN: SANJUANITA GOLDEN Please exercise your independent, professional judgment in responding to the clarification form. Clinical indicators are provided on the bottom of this form for your review Please check appropriate box(s) to clarify if the following diagnosis has been ruled in or ruled out: SEPSIS (CDI/Coding list diagnosis here) [ x ] Ruled in diagnosis [ x ] Continue to treat [ ] Resolved [ ] Ruled out diagnosis [ ] Cannot rule out diagnosis [ ] Other diagnosis [ ] Unable to determine In addition, please specify: Present on Admission (POA): [ x] Yes [ ] No [ ] Unable to determine For continuity of documentation, please document condition throughout progress notes and discharge summary. Thank You. CLINICAL INDICATORS - SIGNS / SYMPTOMS / LABS Severe Sepsis - Documented in ED report pg#9 WBC level 4.3 on 10/19 - Documented in Laboratory pulse rate 112 on 10/26 and 104 on 10/27 - Documented in Vital signs Elevated Lactic Acid 2.8 on 10/26 - Documented in Laboratory RISK FACTORS Perineal Abscess - Documented in Consult note on 10/26 by SANJUANITA GOLDEN DM I&D perineal abscess - Documented in Consult note on 10/26 by SANJUANITA GOLDEN TREATMENTS Vancomycin IVBP - Documented in Medication report [employer] Instructor Crystal Reports Winform Viewer (This form is maintained as a part of the permanent medical record) 2014 [employer]. All Rights Reserved [email or web address]
== END 2019-10-29 13:05 | disposition home or self-care (01) | DRG 854 ==
LOC: ERS 03:23 → T4-A 05:37
PROVIDERS: ADMIT Internal Medicine; ATTEND Internal Medicine
PROC: 0H99XZZ Drainage of Perineum Skin, External Approach (ICD-10-PCS; principal; 2019-10-27)
DX: A41.9 Sepsis, unspecified organism (principal); L02.215 Cutaneous abscess of perineum; R65.20 Severe sepsis without septic shock; Z98.890 Other specified postprocedural states; E78.1 Pure hyperglyceridemia; R16.1 Splenomegaly, not elsewhere classified; E10.65 Type 1 diabetes mellitus with hyperglycemia
CPT/HCPCS: 36415; 36416; 72193; 80048; 80053; 80202; 83605; 85025; 87040; 96361; 96365; 96367; 96375; 96376; J1650; J1815; J1885; J2001; J2270; J2405; J2543; J3010; J3370; J3490; J7050; Q9967

== ENCOUNTER 2019-10-30 15:11 | Emergency (ER) | payer SELFPAY ==
[2019-10-30 15:48] LABS: #Eosinphils 0.1 thou/uL (0.0-0.7); #Monocytes 0.2 thou/uL (0.11-0.59); #Neutrophils 3.5 thou/uL (1.40-6.50); %Basophils 0.3 % (0.0-1.0); %Eosinophils 1.4 % (0.0-10.0); %Neutrophils 72.3 % (42.0-75.0); Mean Corpuscular HGB CONC 34.8 g/dL (32.0-36.0); Mean Corpuscular Hemoglobin 27.7 pg (27.0-31.0); Mean Corpuscular Volume 79.5 fL (78.0-98.0); Mean Platelet Volume 7.5 fL (7.4-10.4); Platelet Count 169 thou/uL (130-400); RBC Distribution Width 12.7 % (11.5-14.5); Red Blood Cell (RBC) Count 5.43 mill/uL (4.70-6.10); White Blood Cell (WBC) Count 4.9 thou/uL (4.8-10.8)
[2019-10-30 16:09] LABS: Anion Gap 13 mmol/L (10-20); BUN (Urea Nitrogen) 11 mg/dL (8.9-20.6); Calc. Creatinine Clearance 0 mL/min (70-130); Carbon Dioxide 24 mmol/L (22-29); Chloride 102 mmol/L (98-107); Potassium 4.4 mmol/L (3.5-5.1); Sodium 135 mmol/L (136-145)
[2019-10-30 16:10] LABS: ALT (SGPT) 31 U/L (8-55); AST (SGOT) 18 U/L (5-34); Albumin 4.2 g/dL (3.5-5.0); Alkaline Phosphatase 95 U/L (40-110); Bilirubin, Total 0.5 mg/dL (0.2-1.2); Calcium 9.5 mg/dL (7.8-10.44); Estimated GFR-MDRD 79; Glucose 415 mg/dL (70-105); Protein, Total 7.2 g/dL (6.0-8.3)
[2019-10-30] MEDS ORDERED: Ondansetron PF 4 MG/2 ML Vial ONE (17:00)
[2019-10-30] MEDS ORDERED: Insulin Regular 300 UNITS/3 ML VIAL ONE (17:00)
[2019-10-30] MEDS ORDERED: Morphine 4 MG/ML VIAL ONE ×2 (17:00→18:19)
[2019-10-30] MEDS ORDERED: Clindamycin/D5W 900 mg/50 ml Premix Bag ONE ×2 (17:00→17:01)
[2019-10-30] MEDS ORDERED: Acetaminophen 650 MG/20.3 ML UDCUP ONE (19:11)
--- NOTE | 2019-10-30 20:06 | CON ---
DATE OF CONSULTATION: Consult from the emergency department. HISTORY OF PRESENT ILLNESS: This patient is a 29-year-old male who is known to me as he was just discharged from this facility yesterday by me. The patient had been admitted to the hospital for a left perineal abscess. The patient seemed to have a significant amount of pain related to abscess that superficially was about a cm and a half with some subcutaneous induration about 3 x 4 cm. The patient was started on broad-spectrum antibiotics, IV pain medications. He had incision and drainage at the bedside by Dr. Gandara. He subsequently had some improvement, although he continued to report significant amounts of pain. He continued to run very high blood sugars, the patient is on an unusual regimen of insulin at home in which he only takes 70/30 and he uses that in the morning and gives additional doses with each meal throughout the day. He said he had been on metformin previously, but it did not work, so it had been discontinued. Repeat CT scan failed to show any new findings and Dr. Gandara felt that it was normal findings for post I and D. He was felt to be appropriate for discharge to home. Continued to try to manage his blood sugars; however, he was confident that he would be able to manage them better at home because he managed his diet differently than he could in the hospital. He was therefore discharged today. The patient presented back to the emergency department. He had reported increased pain and had some drainage that was clearish orange. He denies any fevers. He does report that his blood sugars have continued to run high and he increased his insulin today to 80 units of 70/30 this morning and 55 units with each meal. The patient reports he did go back to work and he was clearly wearing blue jeans, which we had encouraged him not to do. PHYSICAL EXAMINATION: On his exam today, HEART: Regular. LUNGS: Clear bilaterally. ABDOMEN: Soft, nontender. : Reveals essentially no significant change from yesterday. There is an approximately 1.5 cm incision where the superficial pocket had been present. When the deeper indurated area is compressed, there is expression of some serosanguineous fluid from that opening, but no pus. : The patient's scrotum appears normal. Testicle exam appears to be basically normal, although he reports some tenderness of the left testicle. The testicle is normal shape and size, symmetric to the right testicle. There are no masses present. There is no significant erythema of the scrotal area. He does appear to have a bit of tinea cruris. LABORATORY DATA: White count 4.9, hemoglobin 15, platelets 169. Sodium 135, potassium 4.4, BUN 11, creatinine is 1.1, glucose was 415, AST 18, ALT 31. LFTs normal. IMPRESSION AND PLAN: 1. Left perineal abscess status post I and D. Discussed this case with Dr. Gandara. Again, he feels the patient is progressing as expected post-I&D. He had a followup with the patient in 2 weeks. However, given the patient's concerns, he will see the patient early next week. I discussed this with the ER provider. At discharge, the patient is to continue with the p.o. antibiotics and follow up with Dr. Gandara next week as discussed with the patient. He was encouraged again to wear loose clothing that does not rub this area and cause more irritation. He has been wearing blue jeans as that is what he has here today. Encouraged him to stay off work a few days (until seen by Dr. Gandara) if that is possible to avoid further irritation. 2. Uncontrolled diabetes. The patient was again strongly encouraged to follow up with a primary care provider. He tells me he has been getting his insulin filled without a prescription at [facility], but recommended possible [facility] or [facility] so that he can get followup soon in order to get some assistance with controlling these medications. ER physician has given insulin here to address the current hyperglycemia. Also recommended to the ER physician that he be discharged with a new prescription for metformin 500 mg b.i.d. 3. Tinea Cruris. Discussed with ER physician and recommended he discuss treatment of this condition with patient as well. Appears mild and early. 4. Disposition. Plan was discussed with the ED physician and with the patient. He understands the plan. All questions were answered. Job ID: [id number] [facility]
== END 2019-10-30 18:36 | disposition home or self-care (01) ==
LOC: ERS 15:11
DX: L02.215 Cutaneous abscess of perineum (principal); E10.65 Type 1 diabetes mellitus with hyperglycemia; F17.220 Nicotine dependence, chewing tobacco, uncomplicated
CPT/HCPCS: 36415; 36416; 80053; 85025; 87040; 96365; 96375; 96376; J1815; J2270; J2405; J3490

== ENCOUNTER 2019-11-12 23:40 | Emergency (ER) | payer SELFPAY ==
[2019-11-13 01:20] LABS: Bilirubin Negative (Negative); Blood, Urine Negative (Negative); Clarity Clear (Clear); Glucose, Urine (Dipstick) Normal (Negative); Leukocyte Negative Leu/uL (Negative); Nitrite Negative (Negative); Protein, Urine (Dipstick) Negative (Neg-Trace); Urobilinogen Normal mg/dL (Less than 2)
[2019-11-13 01:34] LABS: #Lymphocytes 2.1 thou/uL (1.20-3.40); #Monocytes 0.4 thou/uL (0.11-0.59); #Neutrophils 5.5 thou/uL (1.40-6.50); %Basophils 0.3 % (0.0-1.0); %Eosinophils 0.4 % (0.0-10.0); %Lymphocytes 26.2 % (21.0-51.0); %Monocytes 4.6 % (0.0-10.0); %Neutrophils 68.5 % (42.0-75.0); Hemoglobin 15.7 g/dL (14.0-18.0); Mean Corpuscular HGB CONC 36.5 g/dL (32.0-36.0); Mean Corpuscular Hemoglobin 28.7 pg (27.0-31.0); Mean Corpuscular Volume 78.8 fL (78.0-98.0); Mean Platelet Volume 7.9 fL (7.4-10.4); Platelet Count 160 thou/uL (130-400); RBC Distribution Width 13.3 % (11.5-14.5); Red Blood Cell (RBC) Count 5.46 mill/uL (4.70-6.10); White Blood Cell (WBC) Count 8.1 thou/uL (4.8-10.8)
[2019-11-13] MEDS ORDERED: Ketorolac Tromethamine 30 MG/ML VIAL ONE (01:39)
[2019-11-13 01:54] LABS: Anion Gap 17 mmol/L (10-20); BUN (Urea Nitrogen) 14 mg/dL (8.9-20.6); Calc. Creatinine Clearance 0 mL/min (70-130); Calcium 10.5 mg/dL (7.8-10.44); Carbon Dioxide 23 mmol/L (22-29); Chloride 100 mmol/L (98-107); Estimated GFR-MDRD Greater than 90; Glucose 218 mg/dL (70-105); Potassium 4.1 mmol/L (3.5-5.1); Sodium 136 mmol/L (136-145)
[2019-11-13] MEDS ORDERED: HYDROcodone/Acetaminophen 7.5/325 mg Tablet ONE (02:51)
[2019-11-13] MEDS ORDERED: Bacitracin 1 PK ONE (02:51)
== END 2019-11-13 03:05 | disposition home or self-care (01) ==
LOC: ERS 23:40
DX: K61.0 Anal abscess (principal); E83.52 Hypercalcemia; E10.9 Type 1 diabetes mellitus without complications; F17.220 Nicotine dependence, chewing tobacco, uncomplicated
CPT/HCPCS: 36416; 46050; 80048; 81003; 83605; 85025; 96361; 96374; J1885

== ENCOUNTER 2019-11-29 12:51 | Inpatient (IN) | payer SELFPAY ==
[~2019-11-29 12:51] MED LIST: Dexamethasone 20 MG/5 ML VIAL ONE; Iopamidol-370 76% 500 ML 1 ML ONE; Lidocaine 1% PF 5 ML VIAL ONE; Ondansetron PF 4 MG/2 ML Vial ONE; PROPOFOL 200 MG/20 ML VIAL ONE
--- NOTE | 2019-11-29 14:23 | RAD ---
Portable chest: HISTORY: Cough COMPARISON: none FINDINGS: Lung quinonez are clear. Heart and mediastinum appear unremarkable. Vascularity is normal. Visualized osseous structures unremarkable. IMPRESSION: No acute finding
[2019-11-29] MEDS ORDERED: Ondansetron PF 4 MG/2 ML Vial ONE (14:25)
[2019-11-29 14:26] LABS: #Eosinphils 0.1 thou/uL (0.0-0.7); #Lymphocytes 1.4 thou/uL (1.20-3.40); #Monocytes 0.4 thou/uL (0.11-0.59); #Neutrophils 5.2 thou/uL (1.40-6.50); %Basophils 0.2 % (0.0-1.0); %Lymphocytes 20.3 % (21.0-51.0); %Monocytes 5.9 % (0.0-10.0); %Neutrophils 72.6 % (42.0-75.0); Hemoglobin 15.8 g/dL (14.0-18.0); Mean Corpuscular HGB CONC 35.7 g/dL (32.0-36.0); Mean Corpuscular Volume 78.5 fL (78.0-98.0); RBC Distribution Width 13.1 % (11.5-14.5); Red Blood Cell (RBC) Count 5.65 mill/uL (4.70-6.10); White Blood Cell (WBC) Count 7.1 thou/uL (4.8-10.8)
[2019-11-29] MEDS ORDERED: Morphine 4 MG/ML VIAL ONE (14:32)
[2019-11-29 14:33] LABS: Base Excess-Venous 1.1 mmol/L (-2.0 to 3.0); Bicarbonate (HCO3v) 24.7 mmol/L (22.0-28.0); CO2 Tension (PvCO2) 35.3 mmHg (40.0-50.0); Calcium, Ionized 1.07 mmol/L (See Comments:); Chloride 102 mmol/L (98-107); Hemoglobin - Calc 16.6 g/dL (14.0-18.0); Potassium 4.4 mmol/L (3.5-5.1); Sodium 136 mmol/L (138-145); T. Carbon Dioxide 25.7 mmol/L (22.0-28.0); vO2 Saturation-calc 99.2 % (60.0-85.0)
[2019-11-29 14:42] LABS: ALT (SGPT) 23 U/L (8-55); AST (SGOT) 16 U/L (5-34); Albumin 4.3 g/dL (3.5-5.0); Alkaline Phosphatase 106 U/L (40-110); Anion Gap 19 mmol/L (10-20); BUN (Urea Nitrogen) 14 mg/dL (8.9-20.6); Bilirubin, Total 0.7 mg/dL (0.2-1.2); CK (CPK) 28 U/L (30-200); Calc. Creatinine Clearance 0 mL/min (70-130); Calcium 9.4 mg/dL (7.8-10.44); Carbon Dioxide 17 mmol/L (22-29); Chloride 101 mmol/L (98-107); Estimated GFR-MDRD Greater than 90; Globulin 3.4 g/dL (2.4-3.5); Glucose 297 mg/dL (70-105); Lipase 34 U/L (8-78); Magnesium 1.8 mg/dL (1.6-2.6); Phosphorus 2.6 mg/dL (2.3-4.7); Potassium 4.3 mmol/L (3.5-5.1); Protein, Total 7.7 g/dL (6.0-8.3); Sodium 133 mmol/L (136-145)
[2019-11-29 14:44] LABS: MDiff Complete? YES; Mean Platelet Volume 8.3 fL (7.4-10.4); Platelet Count 110 thou/uL (130-400); Platelet Morphology Comment Appears Decreased; Polychromasia SLIGHT = 2-3 cells (100X) (0-2/hpf)
[2019-11-29] MEDS ORDERED: Fentanyl 100 MCG/2 ML VIAL ONE ×3 (15:13→18:16)
--- NOTE | 2019-11-29 15:22 | ULT ---
TESTICULAR ULTRASOUND: Date: 11/29/2019 HISTORY: Left testicle pain. FINDINGS: Both testicles have a normal sonographic appearance. Testicles have normal and symmetric size. Color Doppler and spectral analysis demonstrates blood flow to both testicles. Small bilateral hydroceles. Small epididymal cyst on the left measuring 5-6 mm. There is echogenicity and enlargement of the left inguinal canal at the site of pain. This could pote ntially represent an inguinal hernia. IMPRESSION: 1. Small bilateral hydroceles. Testicles are unremarkable. 2. Echogenicity and enlargement of the left inguinal ring. Possible inguinal hernia. Recommend clini andreina correlation. POS: [facility]
--- NOTE | 2019-11-29 15:52 | CT ---
CT PELVIS WITH IV CONTRAST: 11/29/19 INDICATIONS: Peroneal abscess. Comparison made to CT pelvis performed yesterday. Gas and inflammatory change seen in the subcutaneou s tissues upper left thigh at the base of the scrotum. Today's findings: There continues to be inflammatory change at the baes of the scrotum extending into the subcutaneous tissues of the medial superior left thigh. There is more confluence today and there may be developing abscess in this region. The gas densities seen yesterday are not as apparent today. The pelvic organs and structures are unremarkable and unchanged. No other interval change. IMPRESSION: Inflammatory change at the base of the scrotum on the left extending into the subcutaneous tissues of the superior medial left thigh as described above. POS: ALYSSA
[2019-11-29] MEDS ORDERED: Ketorolac Tromethamine 30 MG/ML VIAL ONE (17:15)
[2019-11-29] MEDS ORDERED: Cefepime 2 GM VIAL ONE (17:23)
[2019-11-29] MEDS ORDERED: HYDROmorphone 0.5 MG/0.5 ML SYRINGE ONE (17:50)
[2019-11-29] MEDS ORDERED: Midazolam HCl 2 mg/2 ml Vial ONE (17:50)
[2019-11-29] MEDS ORDERED: Lidocaine 2% Jelly 5 ML TUBE ONE (17:51)
[2019-11-29 18:06] LABS: Bilirubin Negative (Negative); Blood, Urine Negative (Negative); Clarity Clear (Clear); Glucose, Urine (Dipstick) Greater than 1000 mg/dL (Negative); Leukocyte Negative Leu/uL (Negative); Nitrite Negative (Negative); Protein, Urine (Dipstick) 20 mg/dL (Neg-Trace); Urobilinogen Normal mg/dL (Less than 2)
[2019-11-29] MEDS ORDERED: Dextrose 50% Abboject 50 ML SYRINGE SLOW IVP PRN ×2 (18:18→19:05)
[2019-11-29] MEDS ORDERED: Acetaminophen 325 MG TAB PO PRN (18:18)
[2019-11-29] MEDS ORDERED: Bisacodyl 5 MG TAB PO PRN (18:18)
[2019-11-29] MEDS ORDERED: Dextrose 5% in Water 1,000 ML IV PRN ×2 (18:18→19:05)
[2019-11-29] MEDS ORDERED: Vancomycin HCl 1 GM in Premix Bag 1 BAG IVPB SCH (18:30)
[2019-11-29] MEDS ORDERED: Insulin Regular 300 UNITS/3 ML VIAL ONE (18:32)
[2019-11-29] MEDS ORDERED: Promethazine HCl 25 MG/ML VIAL IM PRN ×2 (19:05→19:08)
[2019-11-29] MEDS ORDERED: hydrALAZINE 20 MG/ML VIAL SLOW IVP PRN (19:05)
[2019-11-29] MEDS ORDERED: HYDROcodone/Acetaminophen 10/325 mg Tablet PO PRN (19:05)
[2019-11-29] MEDS ORDERED: Meperidine HCl/PF 25 MG/ML VIAL SLOW IVP PRN ×2 (19:08)
[2019-11-29] MEDS ORDERED: HYDROmorphone 2 MG/ML VIAL SLOW IVP PRN (19:08)
[2019-11-29] MEDS ORDERED: Promethazine HCl 25 MG/ML VIAL SLOW IVP PRN (19:08)
[2019-11-29] MEDS ORDERED: Ondansetron HCl/PF 4 MG/2 ML Vial IVP PRN (19:08)
--- NOTE | 2019-11-29 19:40 | HP ---
PRIMARY CARE PROVIDER: None. CHIEF COMPLAINT: Left thigh pain. HISTORY OF PRESENT ILLNESS: Mr. Cota is a pleasant 29-year-old gentleman who was seen at [facility] on November 29, 2019. He was hospitalized at this facility from October 26 through October 29 of this year for perineal abscess, uncontrolled diabetes, and hypertriglyceridemia. He reports that he presented to the emergency room a couple of times after that because of pain in the thigh. He reports that he was doing well last night. Today morning, he woke up with left thigh pain and pain over the left side of his scrotum. He describes it as sharp, currently 9/10, pain is starting in the thigh and radiating to the scrotum, no known aggravating or relieving factors, not accompanied by fevers, nausea, or vomiting. He denies any dysuria. REVIEW OF SYSTEMS: All systems were reviewed and found to be negative except for the pertinent positives mentioned above. PAST MEDICAL HISTORY: Diabetes mellitus type 1 and recent perineal abscess. PAST SURGICAL HISTORY: Sacral cyst surgery. SOCIAL HISTORY: The patient chews tobacco. He denies alcohol use or recreational drug use. FAMILY HISTORY: Diabetes mellitus in his maternal grandmother. ALLERGIES: NO KNOWN DRUG ALLERGIES. CURRENT MEDICATIONS: 1. Metformin 500 mg 2 times a day. 2. Novolin 70/30 insulin, dose unknown. PHYSICAL EXAMINATION: GENERAL: On examination, Mr. Cota is awake and alert, not in acute distress. He is obese. VITAL SIGNS: Blood pressure is 129/74, pulse 84, respiratory rate 16, and oxygen saturation 97% on room air. He is afebrile. EYES: No scleral icterus, no conjunctival pallor. ENT: Moist mucosal membranes. No oropharyngeal erythema or exudates. NECK: Supple, nontender. Trachea is midline. RESPIRATORY: Accessory muscles of breathing are not active. Chest wall movements are symmetric bilaterally. Lungs are clear to auscultation without wheeze, rhonchi, or crepitations. CARDIOVASCULAR: S1 and S2 are heard, regular. Peripheral pulses palpable. ABDOMEN: Soft, nontender, bowel sounds are heard. NEUROLOGIC: Cranial nerves 2 through 12 are intact. MUSCULOSKELETAL: Power is 5/5 in all 4 extremities. SKIN: He has rash over the left upper thigh and over the posterior aspect of the left side of scrotum. There is induration and mild fluctuance over the thigh lesion. Both areas are warm and tender to touch. LYMPHATIC: No cervical lymphadenopathy. PSYCHIATRIC: Normal mood, normal affect. The patient is oriented to person, place, and time. DIAGNOSTIC STUDIES: Mr. Cota's labs and investigations were reviewed. EKG by my review shows sinus tachycardia, no ST changes to suggest an acute coronary syndrome. Then, chest x-ray by my review does not show any pulmonary infiltrates. Testicular ultrasound showed small bilateral hydroceles, echogenicity and enlargement of the left inguinal ring, possible inguinal hernia. CT scan of the pelvis with IV contrast showed inflammatory change at the base of the scrotum on the left, extending into the subcutaneous tissues of the superior medial left thigh. He has an unremarkable CBC, decreased sodium of 133, normal potassium, normal creatinine, unremarkable LFTs, CK decreased at 28, normal troponin I and normal lactic acid. Urinalysis is negative for nitrite and leukocyte esterase, positive for glucose and ketones. Beta-hydroxybutyrate level is normal at 0.25. ASSESSMENT AND PLAN: Mr. Cota is a pleasant 29-year-old gentleman who was seen at [facility] on November 29, 2019. His problem list includes: 1. Cellulitis and abscess: Mr. Cota is presenting with cellulitis and abscess of the left upper thigh with some extension into the scrotum. He has been started on cefepime and vancomycin, which I will continue. General Surgery Service has been consulted for opinion and help with management. 2. Diabetes mellitus, type 1: I will start him on moderate insulin sliding scale. We will clarify home medications and restart insulin when he is able to take that; otherwise, we will start at decreased dose in case he is n.p.o. 3. Hyponatremia: Mild, likely asymptomatic. 4. Tobacco abuse: The patient has been counseled regarding tobacco cessation. LEVEL OF RISK: High. LEVEL OF COMPLEXITY: High. Job ID: [id number]
[2019-11-29] MEDS: Famotidine 20 MG TAB PO SCH (20:46)
[2019-11-29] MEDS: HYDROcodone/Acetaminophen 10/325 mg Tablet PO PRN (20:46)
[2019-11-29] MEDS: Sodium Chloride 0.9% 1,000 ML IV SCH (20:56)
[2019-11-29] MEDS: Famotidine/PF 20 mg/2ml Vial SLOW IVP SCH (21:13)
[2019-11-29] MEDS: Ketorolac Tromethamine 30 MG/ML VIAL IVP SCH (23:01)
[2019-11-29] MEDS: Morphine 2 MG/ML SYRINGE SLOW IVP PRN (23:02)
--- NOTE | 2019-11-30 01:04 | HP ---
CHIEF COMPLAINT: Recurrent perineal abscess. HISTORY OF PRESENT ILLNESS: This is a 29-year-old male, type 1 diabetic who a month ago had a limited I and D of a perineal abscess, but it has recurred, much worse now over the last 12 hours. He says he has had 3 I and D's in the last 2 months. PAST MEDICAL HISTORY: Diabetes. PAST SURGICAL HISTORY: I and D x3. MEDICATIONS: 1. Metformin. 2. Insulin. ALLERGIES: NO KNOWN DRUG ALLERGIES. SOCIAL HISTORY: He is single. 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 No tobacco or alcohol. FAMILY HISTORY: Diabetes. PHYSICAL EXAMINATION: VITAL SIGNS: Afebrile, pulse 89, and blood pressure 102/63. GENERAL: He is uncomfortable, but he is awake, alert, and oriented. HEENT: Unremarkable. LUNGS: Clear. HEART: Regular rate and rhythm. ABDOMEN: Soft, nontender. Perineum has a 6 x 4 cm indurated area, left groin crease, very tender and tense. LABORATORY DATA: White count 7.1, H and H 15 and 44, platelet count 111. Electrolytes; elevated glucose at 277. ASSESSMENT: Perineal abscess. PLAN: I and D in the OR. CONSENT: I have discussed the planned procedure as well as risk of bleeding, infection, and recurrence. He understands and gives informed consent. Job ID: [id number]
[2019-11-30] MEDS: HYDROcodone/Acetaminophen 10/325 mg Tablet PO PRN ×4 (01:24→17:36)
[2019-11-30 01:45] VITALS: BMI 38.0
[2019-11-30] MEDS: Morphine 4 MG/ML VIAL SLOW IVP PRN ×5 (03:30→20:03)
[2019-11-30 06:03] LABS: #Lymphocytes 0.8 thou/uL (1.20-3.40); #Monocytes 0.2 thou/uL (0.11-0.59); #Neutrophils 5.9 thou/uL (1.40-6.50); %Basophils 0.2 % (0.0-1.0); %Eosinophils 0.3 % (0.0-10.0); %Lymphocytes 11.5 % (21.0-51.0); %Monocytes 2.8 % (0.0-10.0); %Neutrophils 85.3 % (42.0-75.0); Hemoglobin 14.9 g/dL (14.0-18.0); Mean Corpuscular Hemoglobin 29.3 pg (27.0-31.0); Mean Corpuscular Volume 79.2 fL (78.0-98.0); Mean Platelet Volume 8.1 fL (7.4-10.4); Platelet Count 148 thou/uL (130-400); RBC Distribution Width 12.9 % (11.5-14.5)
[2019-11-30 06:19] LABS: Anion Gap 18 mmol/L (10-20); BUN (Urea Nitrogen) 15 mg/dL (8.9-20.6); Calc. Creatinine Clearance 154 mL/min (70-130); Calcium 8.8 mg/dL (7.8-10.44); Carbon Dioxide 17 mmol/L (22-29); Chloride 101 mmol/L (98-107); Estimated GFR-MDRD 67; Glucose 505 mg/dL (70-105); Potassium 5.1 mmol/L (3.5-5.1); Sodium 131 mmol/L (136-145)
[2019-11-30] MEDS: HumaLOG 300 UNITS/3 ML VIAL SC PRN ×4 (06:30→20:41)
[2019-11-30] MEDS: Cefepime 2 GM in Sodium Chloride 0.9% 100 ML IVPB SCH ×2 (06:32→17:27)
[2019-11-30] MEDS: Sodium Chloride 0.9% 1,000 ML IV SCH ×2 (06:50→11:01)
--- NOTE | 2019-11-30 08:16 | PDOC.HOSPP ---
- Subjective Encounter Date: 11/30/19 Encounter Time: 11:00 Subjective: Patient with continued severe pain in left inguinal area, no systemic symptoms. - Objective Vital Signs & Weight: Vital Signs (12 hours) Temp Pulse Resp BP Pulse Ox 11/30/19 00:30 97 16 133/62 11/29/19 21:00 99 18 150/59 H 97 11/29/19 20:30 97.9 F 84 16 141/64 H 98 Weight Weight 279 lb 15.793 oz Result Diagrams: 11/30/19 05:38 11/30/19 05:37 Additional Labs: Accuchecks 11/29/19 11/29/19 18:21 14:05 POC Glucose 198 H 277 H Hospitalist ROS - Review of Systems Constitutional: denies: fever, chills Respiratory: denies: cough, shortness of breath Cardiovascular: denies: chest pain, palpitations Gastrointestinal: denies: nausea, vomiting, abdominal pain Genitourinary: denies: dysuria, hematuria - Medication Medications: Active Medications Generic Name Dose Route Start Last Admin Trade Name Freq PRN Reason Stop Dose Admin Hydrocodone Bitart/Acetaminophen 2 tab 11/29/19 19:05 11/30/19 06:36 Hermann 10/325 PO 2 tab Q4H PRN Administration Severe Pain (7-10) Famotidine 20 mg 11/29/19 21:00 11/29/19 20:46 Pepcid PO 20 mg Q12HR LUAN Administration Famotidine 20 mg 11/29/19 21:00 11/29/19 21:13 Pepcid SLOW IVP Not Given Q12HR LUAN Cefepime HCl 2 gm/ Sodium 100 mls @ 200 mls/hr 11/30/19 06:00 11/30/19 06:32 Chloride IVPB 100 mls 0600,1800 LUAN Administration Sodium Chloride 1,000 mls @ 100 mls/hr 11/29/19 19:15 11/30/19 06:50 Normal Saline 0.9% IV Not Given .Q10H LUAN Insulin Human Lispro 0 units 11/29/19 18:18 11/30/19 06:30 Humalog SC 10 unit .MODERATE SLIDING SC PRN Administration Moderate Correctional Scale Ketorolac Tromethamine 30 mg 11/29/19 23:59 11/29/19 23:01 Toradol IVP 12/02/19 23:59 30 mg Q6HR LUAN Administration Morphine Sulfate 2 mg 11/29/19 19:05 11/29/19 23:02 Morphine SLOW IVP 2 mg Q2H PRN Administration Moderate Pain (4-6) Morphine Sulfate 4 mg 11/29/19 19:05 11/30/19 07:50 Morphine SLOW IVP 4 mg Q2H PRN Administration Severe Pain (7-10) - Exam General Appearance: NAD, awake alert General - other findings: obese ENT: moist mucosa Heart: RRR, no murmur, no gallops, no rubs Respiratory: CTAB, no wheezes, no rales, no ronchi Gastrointestinal: soft, non-tender, non-distended, normal bowel sounds Skin - other findings: left perineum with minimal redness, TTP, packed abscess Psychiatric: normal affect, normal behavior, A&O x 3 Hosp A/P (1) Diabetes type 1, uncontrolled Code(s): E10.65 - TYPE 1 DIABETES MELLITUS WITH HYPERGLYCEMIA Status: Acute (2) Perineal abscess Code(s): L02.215 - CUTANEOUS ABSCESS OF PERINEUM Status: Acute (3) Hypertriglyceridemia Code(s): E78.1 - PURE HYPERGLYCERIDEMIA Status: Acute (4) Splenomegaly Code(s): R16.1 - SPLENOMEGALY, NOT ELSEWHERE CLASSIFIED Status: Acute - Plan S/P I&D by Dr. Avalos On Cefepime and Vancomycin since 11/29/2019 Blood sugars massively elevated this AM Eating well so will resume long acting insulin ISS DVT Proph: Lovenox, SCDs
[2019-11-30] MEDS ORDERED: Insulin Glargine 30 UNITS in Pre-Filled Syringe 1 EACH SC SCH (09:00)
[2019-11-30] MEDS: Famotidine 20 MG TAB PO SCH ×2 (09:42→20:02)
[2019-11-30] MEDS: Enoxaparin Sodium 40 MG/0.4 ML SYRINGE SC SCH (09:44)
[2019-11-30] MEDS ORDERED: Insulin Regular 300 UNITS/3 ML VIAL SC SCH (11:30)
[2019-11-30] MEDS: Famotidine/PF 20 mg/2ml Vial SLOW IVP SCH (11:34)
[2019-11-30] MEDS: Ketorolac Tromethamine 30 MG/ML VIAL IVP SCH ×3 (11:35→17:26)
[2019-11-30] MEDS ORDERED: Insulin Glargine 20 UNITS in Pre-Filled Syringe 1 EACH SC SCH (11:45)
[2019-11-30] MEDS: Insulin Regular 300 UNITS/3 ML VIAL SC SCH ×2 (11:51→18:13)
[2019-11-30] MEDS: Ondansetron PF 4 MG/2 ML Vial IVP PRN ×2 (12:24→20:07)
--- NOTE | 2019-11-30 16:14 | OP ---
DATE OF PROCEDURE: 11/29/2019 PREOPERATIVE DIAGNOSIS: Recurrent left perineal abscess. PROCEDURE PERFORMED: Incision and drainage of left perineal abscess. INDICATIONS: This is a 29-year-old male, type 1 diabetic who over the last 6 weeks has had 3 I and D's of the same abscess, came back with a recurrence. FINDINGS: 5 x 3 x 2 cm abscess cavity, completely unroofed. DESCRIPTION OF PROCEDURE: After informed consent was obtained, patient was taken to the operating room and given general endotracheal anesthesia. He was placed in lithotomy position. His perineum was prepped and draped in usual fashion. An elliptical incision was performed that was 5 cm long x 2.5 cm wide. The skin was excised, entering abscess cavity was thick brownish purulent fluid. This was sent for culture and sensitivity. Skin excised into the deep subcutaneous tissue. The actual depth of the abscess cavity was about 2 cm. Hemostasis was achieved utilizing electrocautery. Then, the wound was thoroughly irrigated and packed open with Betadine gauze, covered by sterile dry gauze and dina-pants. The patient was then transferred to Recovery in good condition. Job ID: [id number]
[2019-11-30 18:12] LABS: Vancomycin, Trough 14.5 ug/mL
[2019-12-01] MEDS: Ketorolac Tromethamine 30 MG/ML VIAL IVP SCH ×4 (00:20→19:47)
[2019-12-01] MEDS: HYDROcodone/Acetaminophen 10/325 mg Tablet PO PRN (00:22)
[2019-12-01] MEDS: Famotidine/PF 20 mg/2ml Vial SLOW IVP SCH ×3 (01:25→22:12)
[2019-12-01] MEDS: Morphine 2 MG/ML SYRINGE SLOW IVP PRN ×2 (01:41→08:15)
[2019-12-01] MEDS: Sodium Chloride 0.9% 1,000 ML IV SCH ×3 (06:22→06:44)
[2019-12-01] MEDS: Cefepime 2 GM in Sodium Chloride 0.9% 100 ML IVPB SCH ×2 (06:34→16:54)
[2019-12-01] MEDS: HumaLOG 300 UNITS/3 ML VIAL SC PRN ×2 (06:48→20:48)
[2019-12-01] MEDS: Enoxaparin Sodium 40 MG/0.4 ML SYRINGE SC SCH (08:16)
[2019-12-01] MEDS: Insulin Regular 300 UNITS/3 ML VIAL SC SCH ×3 (08:16→16:53)
[2019-12-01] MEDS: Famotidine 20 MG TAB PO SCH ×2 (08:16→20:48)
[2019-12-01] MEDS: Ondansetron PF 4 MG/2 ML Vial IVP PRN (10:28)
[2019-12-01] MEDS: Insulin Glargine 60 UNITS in Pre-Filled Syringe 1 EACH SC SCH (10:29)
[2019-12-01] MEDS: Morphine 4 MG/ML VIAL SLOW IVP PRN ×3 (11:44→23:24)
[2019-12-01 17:38] LABS: Vancomycin, Trough 16.4 ug/mL
--- NOTE | 2019-12-01 19:58 | PDOC.HOSPP ---
- Subjective Encounter Date: 12/01/19 Subjective: Feels ok. Still has pain. Nurse reports regular us of the morphine and po meds. - Objective Vital Signs & Weight: Vital Signs (12 hours) Temp Pulse Resp BP Pulse Ox 12/01/19 11:55 97.7 F 68 20 140/92 H 12/01/19 08:13 97.7 F 73 20 151/75 H 95 Weight Admit Weight 279 lb 15.793 oz Weight 279 lb 15.793 oz I&O: 11/30/19 12/01/19 12/02/19 06:59 06:59 06:59 Intake Total 960 Output Total 1550 Balance -590 Result Diagrams: 11/30/19 05:38 11/30/19 05:37 Additional Labs: Accuchecks 12/01/19 12/01/19 12/01/19 16:47 11:10 06:39 POC Glucose 286 H 224 H 321 H 11/30/19 20:44 POC Glucose 207 H Hospitalist ROS - Medication Medications: Active Medications Generic Name Dose Route Start Last Admin Trade Name Freq PRN Reason Stop Dose Admin Hydrocodone Bitart/Acetaminophen 2 tab 11/29/19 19:05 12/01/19 00:22 Union 10/325 PO 2 tab Q4H PRN Administration Severe Pain (7-10) Enoxaparin Sodium 40 mg 11/30/19 09:00 12/01/19 08:16 Lovenox SC 40 mg 0900 LUAN Administration Famotidine 20 mg 11/29/19 21:00 12/01/19 08:16 Pepcid PO 20 mg Q12HR LUAN Administration Famotidine 20 mg 11/29/19 21:00 12/01/19 10:23 Pepcid SLOW IVP Not Given Q12HR LUAN Cefepime HCl 2 gm/ Sodium 100 mls @ 200 mls/hr 11/30/19 06:00 12/01/19 16:54 Chloride IVPB 100 mls 0600,1800 LUAN Administration Sodium Chloride 1,000 mls @ 100 mls/hr 11/29/19 19:15 12/01/19 06:44 Normal Saline 0.9% IV 1,000 mls .Q10H LUAN Administration Vancomycin HCl 2 gm/ Sodium 500 mls @ 250 mls/hr 11/30/19 10:00 12/01/19 18: 43 Chloride IVPB 500 mls 0200,1000,1800 LUAN Administration Insulin Glargine 60 units/ 0.6 mls @ 0 mls/hr 12/01/19 09:00 12/01/19 10:29 Miscellaneous Medication SC 0.6 mls QAM LUAN Administration Insulin Human Lispro 0 units 11/29/19 18:18 12/01/19 06:48 Humalog SC 8 unit .MODERATE SLIDING SC PRN Administration Moderate Correctional Scale Insulin Human Regular 30 units 11/30/19 11:30 12/01/19 16:53 Humulin R SC 30 unit AC LUAN Administration Ketorolac Tromethamine 30 mg 11/29/19 23:59 12/01/19 19:47 Toradol IVP 12/02/19 23:59 30 mg Q6HR LUAN Administration Morphine Sulfate 2 mg 11/29/19 19:05 12/01/19 08:15 Morphine SLOW IVP 2 mg Q2H PRN Administration Moderate Pain (4-6) Morphine Sulfate 4 mg 11/29/19 19:05 12/01/19 16:53 Morphine SLOW IVP 4 mg Q2H PRN Administration Severe Pain (7-10) Ondansetron HCl 4 mg 11/29/19 19:05 12/01/19 10:28 Zofran IVP 4 mg Q6H PRN Administration Nausea/Vomiting - Exam General Appearance: NAD, awake alert Heart: RRR, no murmur, no gallops, no rubs, normal peripheral pulses Respiratory: CTAB, no wheezes, no rales, no ronchi, normal chest expansion, no tachypnea, normal percussion Gastrointestinal: soft, non-tender, non-distended, normal bowel sounds, no palpable masses, no hepatomegaly, no splenomegaly, no bruit Extremities: no cyanosis, no clubbing, no edema Skin: normal turgor Musculoskeletal: normal tone Psychiatric: normal affect, normal behavior, A&O x 3 Hosp A/P (1) Diabetes type 1, uncontrolled Code(s): E10.65 - TYPE 1 DIABETES MELLITUS WITH HYPERGLYCEMIA Status: Acute (2) Hypertriglyceridemia Code(s): E78.1 - PURE HYPERGLYCERIDEMIA Status: Acute (3) Perineal abscess Code(s): L02.215 - CUTANEOUS ABSCESS OF PERINEUM Status: Acute (4) Splenomegaly Code(s): R16.1 - SPLENOMEGALY, NOT ELSEWHERE CLASSIFIED Status: Acute - Plan Continue IV abx. Follow up cultures. Wound care team. Pain management. Glucose remains poorly controlled. Says it is much better at home, but has never been good here.
[2019-12-02] MEDS: Ketorolac Tromethamine 30 MG/ML VIAL IVP SCH ×3 (00:40→12:28)
[2019-12-02] MEDS: Morphine 4 MG/ML VIAL SLOW IVP PRN ×3 (04:44→12:33)
[2019-12-02] MEDS: HYDROcodone/Acetaminophen 10/325 mg Tablet PO PRN ×2 (05:09→15:30)
[2019-12-02] MEDS: Cefepime 2 GM in Sodium Chloride 0.9% 100 ML IVPB SCH (06:11)
[2019-12-02] MEDS: HumaLOG 300 UNITS/3 ML VIAL SC PRN (06:15)
[2019-12-02] MEDS: Enoxaparin Sodium 40 MG/0.4 ML SYRINGE SC SCH (08:33)
[2019-12-02] MEDS: Famotidine 20 MG TAB PO SCH (08:34)
[2019-12-02] MEDS: Insulin Regular 300 UNITS/3 ML VIAL SC SCH ×2 (08:34→12:30)
[2019-12-02] MEDS: Famotidine/PF 20 mg/2ml Vial SLOW IVP SCH (08:35)
[2019-12-02] MEDS: Insulin Glargine 60 UNITS in Pre-Filled Syringe 1 EACH SC SCH (11:07)
[2019-12-02 11:48] VITALS: BP 149/92; TEMP 98.3
[2019-12-02] MEDS: Ondansetron PF 4 MG/2 ML Vial IVP PRN (13:01)
--- NOTE | 2019-12-03 11:55 | DIS ---
DATE OF ADMISSION: 11/29/2019 DATE OF DISCHARGE: 12/02/2019 DISCHARGE DIAGNOSES: 1. Left perineal abscess. 2. Diabetes mellitus, uncontrolled. 3. Hypertriglyceridemia. 4. History of splenomegaly. HISTORY OF PRESENT ILLNESS: This patient is a 29-year-old male, whom I have admitted previously for a left perineal abscess just posterior to the scrotal area that was initially seen by Urology, had I and D and was subsequently discharged on p.o. antibiotics, came back to the emergency room a couple of days later because he was still having some serous type drainage from the area. He was again discharged to continue with the antibiotics and follow up with Urology. The patient has presented back on this occasion with worsening symptoms. HOSPITAL COURSE: The patient had a testicular ultrasound, which was unremarkable due to some scrotal edema. CT scan of the pelvis showed inflammatory changes at the base of the scrotum on the left extending into the subcutaneous tissue of the superior medial thigh. He was seen by Surgery, Dr. Avalos, performed a wide excision of the abscess area. Subsequently, the patient's culture grew a Streptococcus group C. The patient felt well other than having discomfort associated with the lesion. His blood sugars remained somewhat high, although he had better control than he had on his previous admission and the patient is on an unusual outpatient regimen of 70/30 dosing multiple times a day. Once the patient was feeling better, ambulating and it the culture results known, he was felt to be stable for discharge home. PHYSICAL EXAMINATION: VITAL SIGNS: On the day of discharge, temperature is 98.3, pulse 71, respirations 20, O2 saturation 93% to 95% on room air. His BP was 149/92. GENERAL: He is awake and alert. HEART: Regular rate and rhythm. LUNGS: Clear bilaterally. ABDOMEN: Soft, nontender, and nondistended. EXTREMITIES: No cyanosis, clubbing, or edema. : The wound area was covered with gauze without healing of inflammation. DISPOSITION: The patient was discharged home. DISCHARGE MEDICATIONS: He will be on; 1. Keflex 500 mg b.i.d. 2. Zofran ODT 8 mg t.i.d. p.r.n. He will continue his usual home regimen of; 1. 70/30 insulin, which he takes 60 units subcu daily and 30 units before meals. 2. We will continue with tramadol. ACTIVITY: He is to have activity as tolerated, although he is encouraged to stay off any work until December 15. DISCHARGE INSTRUCTIONS: He was again strongly encouraged to establish with a primary care provider, who can follow him up for this particular admission and help manage his diabetes long-term. TIME SPENT: Total time in discharge activities is greater than 30 minutes. Job ID: [id number] MTDD
--- NOTE | 2019-12-03 22:23 | PQF ---
Theo Cota DAVID R MD [id number] CLINICAL DOCUMENTATION CLARIFICATION FORM: POST DISCHARGE Addendum to original discharge summary date: ____ Late entry note date: __ Diabetes does not cause abscesses DATE: 12/03/2019 ATTN: GABY CLAY MD Please exercise your independent, professional judgment in responding to the clarification form. Clinical indicators are provided on the bottom of this form for your review Please check appropriate box(s): [ ] Perineal abscess due to Diabetes [ x ] Perineal abscess not due to Diabetes [ ] Other diagnosis [ ] Unable to determine For continuity of documentation, please document condition throughout progress notes and discharge summary. Thank You. CLINICAL INDICATORS - SIGNS / SYMPTOMS / LABS Recently admitted 1 month ag for abscess on left thigh due to complication of DM1-Documented in ED on by Dayan Perry DM with hyperglycemia-Documented in ED on by Dayan Perry Diabetes type 1 uncontrolled-Documented in Hospitalist progress note on 11/29 by Fei Graham MD Perineal abscess-Documented in OP note on by Sunny Avalos MD RISKS: Diabetes type 1 uncontrolled-Documented in Hospitalist progress note on 11/29 by Fei Graham MD Perineal abscess-Documented in OP note on by Sunny Avalos MD TREATMENT: I will start him on moderate insulin sliding scale -Documented in H&P on by Gaby Pardo MD Incision and drainage of left perineal abscess-Documented in OP note on by Sunny Avalos MD 5x3x2 cm abscess cavity completely unroofed-Documented in OP note on by Sunny Avalos MD Skin excised into the deep subcutaneous tissue -Documented in OP note on by Sunny Avalos MD on cefepime and vancomycin since -Documented in Hospitalist progress note on 11/29 by Fei Graham MD 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 All Rights Reserved Justin MTDPhil
== END 2019-12-02 16:10 | disposition home or self-care (01) | DRG 571 ==
LOC: ERS 12:51 → EEVIPCON 12:51 → SDC 18:41 → 3SE 19:34
PROVIDERS: ADMIT Internal Medicine; ATTEND Internal Medicine
PROC: 0JBB0ZZ Excision of Perineum Subcutaneous Tissue and Fascia, Open Approach (ICD-10-PCS; principal; 2019-11-29)
DX: L02.215 Cutaneous abscess of perineum (principal); E87.1 Hypo-osmolality and hyponatremia; L02.416 Cutaneous abscess of left lower limb; L03.116 Cellulitis of left lower limb; E10.65 Type 1 diabetes mellitus with hyperglycemia; E78.1 Pure hyperglyceridemia; R16.1 Splenomegaly, not elsewhere classified; Z83.3 Family history of diabetes mellitus; N49.2 Inflammatory disorders of scrotum; F17.200 Nicotine dependence, unspecified, uncomplicated; Z71.6 Tobacco abuse counseling; Z79.84 Long term (current) use of oral hypoglycemic drugs; Z79.4 Long term (current) use of insulin; K40.90 Unilateral inguinal hernia, without obstruction or gangrene, not specified as recurrent
CPT/HCPCS: 36415; 36416; 71045; 72193; 76870; 80048; 80053; 80202; 81003; 82010; 82330; 82550; 82803; 83605; 83690; 83735; 83930; 84100; 84484; 85025; 87040; 87070; 87076; 87077; 87081; 87086; 87205; 87430; 87804; 93005; 93976; 94760; J0692; J1100; J1170; J1650; J1815; J1885; J2001; J2250; J2270; J2405; J2704; J3010; J3370; J3490; J7050; Q9967

== ENCOUNTER 2019-12-03 01:54 | Inpatient (IN) | payer SELFPAY ==
[2019-12-03 02:31] LABS: #Eosinphils 0.1 thou/uL (0.0-0.7); #Lymphocytes 1.3 thou/uL (1.20-3.40); #Monocytes 0.3 thou/uL (0.11-0.59); #Neutrophils 6.5 thou/uL (1.40-6.50); %Basophils 0.2 % (0.0-1.0); %Eosinophils 0.8 % (0.0-10.0); %Lymphocytes 16.2 % (21.0-51.0); %Neutrophils 78.9 % (42.0-75.0); Hemoglobin 15.8 g/dL (14.0-18.0); Mean Corpuscular HGB CONC 34.6 g/dL (32.0-36.0); Mean Corpuscular Hemoglobin 27.5 pg (27.0-31.0); Mean Corpuscular Volume 79.5 fL (78.0-98.0); Mean Platelet Volume 7.4 fL (7.4-10.4); Platelet Count 141 thou/uL (130-400); RBC Distribution Width 12.8 % (11.5-14.5); Red Blood Cell (RBC) Count 5.74 mill/uL (4.70-6.10); White Blood Cell (WBC) Count 8.2 thou/uL (4.8-10.8)
[2019-12-03 02:51] LABS: ALT (SGPT) 33 U/L (8-55); AST (SGOT) 16 U/L (5-34); Alkaline Phosphatase 92 U/L (40-110); Anion Gap 14 mmol/L (10-20); BUN (Urea Nitrogen) 11 mg/dL (8.9-20.6); Calc. Creatinine Clearance 0 mL/min (70-130); Calcium 9.2 mg/dL (7.8-10.44); Carbon Dioxide 28 mmol/L (22-29); Chloride 101 mmol/L (98-107); Estimated GFR-MDRD Greater than 90; Globulin 2.9 g/dL (2.4-3.5); Glucose 178 mg/dL (70-105); Potassium 3.8 mmol/L (3.5-5.1); Protein, Total 6.9 g/dL (6.0-8.3); Sodium 139 mmol/L (136-145)
[2019-12-03] MEDS ORDERED: Morphine 4 MG/ML VIAL ONE (02:51)
[2019-12-03] MEDS ORDERED: Ondansetron PF 4 MG/2 ML Vial ONE (02:51)
[2019-12-03] MEDS ORDERED: cefTRIAXone\\ROCEPHIN 2 GM VIAL ONE (03:08)
[2019-12-03] MEDS ORDERED: Azithromycin 500 MG VIAL ONE (03:08)
[2019-12-03 03:20] LABS: Bacteria/HPF None Seen HPF (None Seen); Bilirubin Negative (Negative); Blood, Urine Negative (Negative); Clarity Clear (Clear); Glucose, Urine (Dipstick) 50 mg/dL (Negative); Leukocyte Negative Leu/uL (Negative); Nitrite Negative (Negative); Protein, Urine (Dipstick) 30 mg/dL (Neg-Trace); RBC/HPF 0-3 HPF (0-3); Squamous Epithelial None Seen HPF (0-3); Urobilinogen Normal mg/dL (Less than 2)
[2019-12-03] MEDS ORDERED: Promethazine HCl 25 MG/ML VIAL ONE (03:57)
[2019-12-03] MEDS ORDERED: Vancomycin 1.5 GRAM/300 ML BAG 1.5 GM in Premix Bag 1 BAG IVPB SCH (04:00)
[2019-12-03] MEDS ORDERED: Acetaminophen 325 MG TAB PO PRN (06:27)
[2019-12-03] MEDS ORDERED: Ketorolac Tromethamine 30 MG/ML VIAL IVP PRN (06:27)
--- NOTE | 2019-12-03 06:46 | CT ---
PRELIMINARY REPORT/[facility]/EMERGENCY AFTER HOURS PROCEDURE: EXAM: CTA Chest with Intravenous Contrast CLINICAL HISTORY: This is a 29 yo male who was recently discharged from the hospital yesterday for treatment of groin a bscess. He states yesterday he started coughing up blood. A friend with him states that he was pacing the room and appeared pale. He reports some chest pain and SOB TECHNIQUE: Axial CTA images of the chest with intravenous contrast. MIP reconstructed images were created and re viewed. CONTRAST: With; ISOVUE 370,100mL COMPARISON: None provided. FINDINGS: PULMONARY ARTERIES There is no intraluminal filling defect suspicious for PE. AORTA No thoracic aortic aneurysm or dissection. LUNGS Scattered patchy/nodular and confluent moderate parenchymal densities/consolidation with predominant involvement of the left midlung zone, correlate for atypical pneumonia; differential might include pn eumonitis, alveolar hemorrhage, ARDS; follow-up to resolution. PLEURAL SPACES No pleural effusion. No pneumothorax. HEART AND MEDIASTINUM No cardiomegaly. No significant pericardial effusion. LYMPH NODES No lymphadenopathy. BONES No focal osseous abnormality or acute fracture. CHEST WALL AND UPPER ABDOMEN Moderate hepatic steatosis. IMPRESSION: 1. No evidence of acute pulmonary artery embolism. 2. Scattered patchy/nodular and confluent moderate parenchymal densities/consolidation with predomina nt involvement of the left midlung zone, correlate for atypical pneumonia; differential might include pneumonitis, alveolar hemorrhage, ARDS; follow-up to resolution. ELECTRONICALLY SIGNED BY: Sunny Chanel MD Dec 03, 2019 3:13:13 AM CUSTOMER SUPPORT MANAGER This report is intended for review by the ordering physician only, in accordance of law. If you recei ve this report in error, please call [facility] at [phone]. FINAL REPORT EMERGENCY AFTER HOURS CTA CHEST WITH CONTRAST: FINDINGS/IMPRESSION: I agree with the findings and impression given in the preliminary report per [facility] physici an. 1. No evidence of pulmonary thromboembolism. 2. Multifocal infiltrates.
[2019-12-03] MEDS ORDERED: Ketorolac Tromethamine 30 MG/ML VIAL ONE (07:29)
[2019-12-03] MEDS ORDERED: HYDROcodone/Acetaminophen 10/325 mg Tablet PO PRN (08:28)
[2019-12-03] MEDS ORDERED: Dextrose 5% in Water 1,000 ML IV PRN (08:31)
[2019-12-03] MEDS ORDERED: Dextrose 50% Abboject 50 ML SYRINGE SLOW IVP PRN (08:31)
[2019-12-03 08:47] LABS: INR-International Normal Ratio 1.1; PTT 28.3 SEC (22.9-36.1); Prothrombin Time 13.8 SEC (12.0-14.7)
[2019-12-03] MEDS: Vancomycin HCl 1 GM in Premix Bag 1 BAG IVPB SCH ×2 (09:20→21:25)
[2019-12-03] MEDS ORDERED: HYDROcodone/Acetaminophen 10/325 mg Tablet ONE (09:23)
[2019-12-03] MEDS ORDERED: Cefepime 2 GM VIAL ONE (09:23)
[2019-12-03] MEDS: Cefepime 2 GM in Sodium Chloride 0.9% 100 ML IVPB SCH ×2 (09:30→21:24)
[2019-12-03] MEDS: Insulin Glargine 40 UNITS in Pre-Filled Syringe 1 EACH SC SCH (09:32)
[2019-12-03 12:33] LABS: Amphetamine Not Detected (NotDetected); Barbiturates Screen Not Detected (NotDetected); Benzodiazepine Screen Not Detected (NotDetected); Cocaine Metabolite Screen Not Detected (NotDetected); Medtox Control Line Valid? VALID (VALID); Medtox Reader # READER 1; Methadone Not Detected (NotDetected); Methamphetamine Not Detected (NotDetected); Opiate Screen Detected (NotDetected); Oxycodone Screen Not Detected (NotDetected); Phencyclidine (PCP) Not Detected (NotDetected); THC/Cannabinoid Screen Not Detected (NotDetected); Tricyclic Screen Not Detected (NotDetected)
[2019-12-03] MEDS ORDERED: Iopamidol-370 76% 500 ML 1 ML ONE (13:22)
[2019-12-03 14:13] VITALS: BMI 37.8
--- NOTE | 2019-12-03 14:21 | HP ---
CHIEF COMPLAINT: Cough and shortness of breath. HISTORY OF PRESENT ILLNESS: This patient is a 29-year-old male with a history of very poorly-controlled diabetes in general, who also has a history of some skin issues cameron to hidradenitis with prior perineal abscesses. The patient has been dealing with a perineal abscess posterior to left scrotum for the past several weeks. He initially presented here, had a bedside I and D by Urology, was treated with IV and then p.o. antibiotics and discharged. Subsequently came back to the emergency department because of some persistent drainage and discomfort. However, the wound looked good. He was again discharged to follow up with Urology. The patient has not had resolution and apparently got worse. The patient was readmitted here on at which time he was seen by General Surgery, had general anesthesia and excision of the entire abscess area. The patient did fine subsequent. He grew a group C strep and remained afebrile and was ultimately felt to be appropriate for discharge to home on p.o. antibiotics. He was discharged on Keflex in good condition on 12/02/19. The patient then went home, said he slept most of the day, but then when he woke up, he was experiencing a harsh cough and some shortness of breath and subsequently presented here to the emergency department. The patient also reported that he was having some hemoptysis and per the ER record, he had a friend with him who said he was pacing the room and appeared pale and he also reported some chest discomfort. REVIEW OF SYSTEMS: The patient apparently reported fevers, chills and nausea to the emergency department. On my questioning, says he was not having any fevers and denies any significant chest pain. All other systems reviewed. All pertinent positives and negatives noted in the history of present illness or otherwise negative. PAST MEDICAL HISTORY: Notable for the above mentioned type 1 diabetes. He also has some associated hypertriglyceridemia. He also has a history of some splenomegaly with some associated thrombocytopenia. He previously had a workup including flow cytometry, which is negative for evidence of myeloproliferative disorder or malignancy. He also has a history of some prior pancreatitis of unclear etiology. FAMILY HISTORY: Hypertension in his father. His mother had lupus, diabetes, and hidradenitis suppurativa. SOCIAL HISTORY: The patient denies alcohol, drugs, or tobacco. He denies vaping or inhaling any other foreign substances. He is single. He is full code. His father, Ezra St would be his surrogate decision maker should that become necessary. ALLERGIES: NONE. CURRENT MEDICATIONS: 1. Metformin 500 mg b.i.d. and 70/30 insulin with apparently 70 units in the morning and 30 units with meals. 2. Keflex 500 mg p.o. b.i.d., of which he only took one after discharge. PHYSICAL EXAMINATION: VITAL SIGNS: Initially BP was 202/99, pulse 87, respirations were 22 and he was 86% on room air. Most recent documented vitals, BP is 163/99, pulse 86, respirations 19, O2 saturation 95% on 4 L. GENERAL APPEARANCE: Age-appropriate male. He is currently in no distress. He has nasal cannula in place. He is coughing frequently and producing a thin red sputum. He is otherwise able to speak in full sentences. HEENT: PERRL. No OP lesions. NECK: Supple and symmetric. HEART: Regular rate and rhythm without murmurs, gallops, or rubs. LUNGS: Diffuse rales bilaterally, seems to be a little bit worse on the left at present. No wheezes or rhonchi. ABDOMEN: Soft, nontender, and nondistended. Positive bowel sounds. No masses. No organomegaly. EXTREMITIES: No cyanosis, clubbing, or edema. Peripheral pulses are present. : Reveals the surgical defect in the left perineal area, which appears otherwise healthy. PSYCHIATRIC: Normal affect and behavior. NEUROLOGIC: No focal deficits. Cognitively intact. All extremities move spontaneously. Cranial nerves are intact. LABORATORY DATA: White count 8.2, hemoglobin 15.8, platelets 141. D-dimer 0.39. Sodium 139, potassium 3.8, chloride 101, CO2 is 28, BUN 11, creatinine 0.85, glucose 178, lactic acid 1.5, calcium 9.2. AST 16, ALT 33, alkaline phosphatase 92. Urinalysis only shows 4 to 6 white cells, otherwise negative. CTA of the chest reveals scattered patchy/nodular and confluent moderate parenchymal density/consolidations with predominant involvement of the left mid lung zone, possible atypical pneumonia. Differential also including pneumonitis, alveolar hemorrhage, ARDS. IMPRESSION AND PLAN: 1. Acute hypoxic respiratory failure. The patient has underlying pulmonary infiltrates and hemoptysis. We will maintain supportive oxygen. Certainly concerning he may get worse before he gets better. 2. Pulmonary infiltrates, concerning for pneumonia. We will therefore cover with vancomycin and cefepime given that he just left the hospital. Also concerning for possible alveolar hemorrhage given that he is having the hemoptysis. He is afebrile and has a normal white count, we will check coags. Also possible early ARDS per my discussion with Dr. Hernadez. The case was were reviewed with him. He will be consulted as well. 3. Status post surgical excision of left perineal abscess. The wound appears to look good. We will continue wet-to-dry dressing changes. 4. Diabetes mellitus. The patient is on a very unusual regimen at home, taking multiple doses of 70/30 throughout the day. He reports he does not have a primary care provider and has been getting his insulin without a prescription and going to try to go with some Lantus in the morning and sliding scale high dose throughout the day, keep him on a diabetic diet with Accu-Cheks. 5. History of splenomegaly with thrombocytopenia,, appears to be generally stable and his platelet count is currently normal. Again, this was previously worked up with flow cytometry, which was negative. Job ID: [id number]
[2019-12-03] MEDS: HYDROcodone/Acetaminophen 10/325 mg Tablet PO PRN ×3 (14:31→22:33)
--- NOTE | 2019-12-03 15:29 | CON ---
DATE OF CONSULTATION: HISTORY OF PRESENT ILLNESS: Theo Cota is a 29-year-old morbidly obese gentleman, who underwent drainage and surgery of his right groin infection. He was intubated. As of yesterday, postop, he has had coughing some blood, slightly short of breath, went home, it got worse, so he came into the ER with a temperature of 99, blood pressure 202/99, sats 86% on room air, respiratory rate 22, and pulse 87. CT showing diffuse ground-glass bilateral infiltrates consistent with ARDS. He said he has had fair amount of blood. Nonsmoker. Nondrinker. No prior history of TB, pneumonia, or bronchial asthma. PAST MEDICAL HISTORY: Pertinent mainly for diabetes. He has no primary care physician. CHRONIC MEDICATIONS: At home, include metformin 500 two a day and insulin 70/30 100 units a day. ALLERGIES: NONE. SOCIAL HISTORY: He is presently unemployed. PAST SURGICAL HISTORY: As noted, sacral cyst surgery and the surgery done in his groin. REVIEW OF SYSTEMS: Ten-point negative. PHYSICAL EXAMINATION: GENERAL: He is complaining of pain. VITAL SIGNS: Temperature 98, pulse 76, respiratory rate 20, sats 90% on room air, and blood pressure 160/83. CHEST: Decreased breath sounds with bilateral rhonchi. Minimal wheezing. CARDIAC: Normal S1-S2. No gallops. ABDOMEN: No masses. DIAGNOSTIC DATA: Drug screen was negative. Cultures growing Streptococcus. CT of chest as noted. Bilateral infiltrates. White count 8000, H and H of 15 and 45, and platelet count 141. His lytes are normal. Blood sugar is elevated. IMPRESSION: 1. Diffuse pulmonary infiltrates. Pulmonary hemorrhage. Possibly negative pressure pulmonary edema. 2. Right groin infection. 3. Morbid obesity. 4. Diabetes. PLAN: Brief course of Decadron. I agree with antibiotics, neb treatments, supportive care. Repeat chest x-ray in the morning. We will follow. Consultation note, 70 minutes, 50% direct patient care. Job ID: [id number]
[2019-12-03] MEDS: Dexamethasone 4 MG in Sodium Chloride 0.9% 50 ML IVPB SCH ×2 (17:44→23:50)
[2019-12-03] MEDS: metFORMIN 500 MG TAB PO SCH (17:45)
[2019-12-03] MEDS: HumaLOG 300 UNITS/3 ML VIAL SC PRN ×2 (17:46→22:49)
[2019-12-03] MEDS: traMADol HCl 50 MG TAB PO PRN (21:50)
[2019-12-04] MEDS: HYDROcodone/Acetaminophen 10/325 mg Tablet PO PRN ×4 (02:18→20:34)
[2019-12-04] MEDS: traMADol HCl 50 MG TAB PO PRN ×2 (04:45→12:13)
[2019-12-04] MEDS: Dexamethasone 4 MG in Sodium Chloride 0.9% 50 ML IVPB SCH (04:45)
[2019-12-04] MEDS: HumaLOG 300 UNITS/3 ML VIAL SC PRN ×4 (04:53→20:28)
[2019-12-04 05:51] LABS: #Lymphocytes 0.6 thou/uL (1.20-3.40); #Monocytes 0.1 thou/uL (0.11-0.59); #Neutrophils 6.5 thou/uL (1.40-6.50); %Basophils 0.2 % (0.0-1.0); %Eosinophils 0.5 % (0.0-10.0); %Lymphocytes 7.6 % (21.0-51.0); %Monocytes 1.2 % (0.0-10.0); %Neutrophils 90.5 % (42.0-75.0); Hemoglobin 14.2 g/dL (14.0-18.0); Mean Corpuscular Hemoglobin 26.3 pg (27.0-31.0); Mean Corpuscular Volume 79.6 fL (78.0-98.0); Mean Platelet Volume 7.5 fL (7.4-10.4); Platelet Count 132 thou/uL (130-400); RBC Distribution Width 12.8 % (11.5-14.5); White Blood Cell (WBC) Count 7.2 thou/uL (4.8-10.8)
[2019-12-04 06:14] LABS: ALT (SGPT) 23 U/L (8-55); AST (SGOT) 10 U/L (5-34); Albumin 3.9 g/dL (3.5-5.0); Alkaline Phosphatase 115 U/L (40-110); Anion Gap 13 mmol/L (10-20); BUN (Urea Nitrogen) 15 mg/dL (8.9-20.6); Bilirubin, Total 0.7 mg/dL (0.2-1.2); Calc. Creatinine Clearance 194 mL/min (70-130); Calcium 9.5 mg/dL (7.8-10.44); Carbon Dioxide 28 mmol/L (22-29); Chloride 100 mmol/L (98-107); Estimated GFR-MDRD 80; Globulin 3.1 g/dL (2.4-3.5); Glucose 411 mg/dL (70-105); Potassium 4.7 mmol/L (3.5-5.1); Sodium 136 mmol/L (136-145)
--- NOTE | 2019-12-04 08:35 | RAD ---
PA AND LATERAL VIEWS CHEST: HISTORY: CHF. FINDINGS: The heart size is normal. There are patchy infiltrates in the left lung. No pneumothoraces or santos pulmonary edema are seen. No acute osseous abnormalities identified. IMPRESSION: Findings are suspicious for pneumonia. POS: [facility]
[2019-12-04] MEDS: Vancomycin HCl 1 GM in Premix Bag 1 BAG IVPB SCH ×2 (08:56→20:29)
[2019-12-04] MEDS: metFORMIN 500 MG TAB PO SCH ×2 (08:57→16:15)
[2019-12-04] MEDS: Insulin Glargine 40 UNITS in Pre-Filled Syringe 1 EACH SC SCH (08:57)
--- NOTE | 2019-12-04 08:58 | PRG ---
DATE OF SERVICE: 12/04/2019 SUBJECTIVE: This morning, he is awake, alert, and responsive. OBJECTIVE: VITAL SIGNS: Temperature 97, pulse 75, respiratory rate 18, saturations 98% on room air, blood pressure 154/78. CHEST: No wheezing or crackles. CARDIAC: Normal S1, S2. No gallops. ABDOMEN: No masses. LABORATORY DATA: Unremarkable. Blood sugar is 411. X-ray shows much improvement, minimal infiltrate in the left mid chest. ASSESSMENT: Negative pressure edema, hemoptysis much improved, diabetes. PLAN: Discontinue Decadron, p.o. antibiotics for 5 days. Discharge home any time. Job ID: [id number]
[2019-12-04] MEDS: Cefepime 2 GM in Sodium Chloride 0.9% 100 ML IVPB SCH ×2 (10:39→20:28)
--- NOTE | 2019-12-04 11:38 | PRG ---
DATE OF SERVICE: 12/04/2019 SUBJECTIVE: The patient is seen and examined at the bedside. He feels bad. He has some sore throat and he is not able to eat. He has nausea each time he eats. He complains about left perirectal area, which was incised by urologist. OBJECTIVE: VITAL SIGNS: Blood pressure is 154/78, pulse is 75, respiratory rate is 18, O2 saturation is 96% on room air, and temperature is 97.5. GENERAL: His head is atraumatic and normocephalic. Eyes are PERRLA. Sclerae are nonicteric. Oral mucosa is moist. NECK: Supple. LUNGS: Clear. HEART: S1 and S2 normal. No S3. No S4. No any murmur. ABDOMEN: Obese, nontender. Bowel sounds are present. No organomegaly. RECTAL: Perirectal area shows status post incision with mild serosanguineous fluid drainage. NEUROLOGICAL: He is alert and oriented x4. There are no any motor deficits. LABORATORY DATA: Showed normal CBC. Normal chemistry except for glycemia, which is not controlled ranging from 189 to 377 and up to 411. Alkaline phosphatase 115. Microbiology, two blood cultures negative. Influenza A and B, direct EIA testing negative for both. IMPRESSION: 1. Possible left lung pneumonia. 2. Uncontrolled diabetes. 3. Left perineal abscess, status post surgical incision. 4. Diabetes mellitus. 5. History of splenomegaly with thrombocytopenia, stable. PLAN: We are going to continue Accu-Cheks a.c. and at bedtime. We will change his mild sliding scale to aggressive. We will continue his long-acting insulin, which is insulin Lantus 40 units every morning. We will continue vancomycin and cefepime for now. We will get Wound Care. I believe that this open area from the abscess should be packed since this area is very difficult to manage and pain management with hydrocodone. Job ID: [id number]
[2019-12-04 11:45] LABS: Hemoglobin A1c 9.1 % (4.0-6.0)
[2019-12-04] MEDS ORDERED: Vancomycin HCl 1 GM in Premix Bag 1 BAG IVPB SCH (21:15)
[2019-12-05] MEDS: HYDROcodone/Acetaminophen 10/325 mg Tablet PO PRN ×2 (03:44→07:40)
[2019-12-05] MEDS: HumaLOG 300 UNITS/3 ML VIAL SC PRN ×2 (03:45→13:11)
[2019-12-05] MEDS: metFORMIN 500 MG TAB PO SCH (07:41)
[2019-12-05] MEDS: Cefepime 2 GM in Sodium Chloride 0.9% 100 ML IVPB SCH (08:05)
[2019-12-05] MEDS: Insulin Glargine 40 UNITS in Pre-Filled Syringe 1 EACH SC SCH (09:15)
--- NOTE | 2019-12-05 09:28 | PRG ---
DATE OF SERVICE: 12/05/2019 SUBJECTIVE: This morning, awake, alert, and responsive. OBJECTIVE: VITAL SIGNS: Temperature 97, pulse 73, respiratory rate 18, saturations 98% on room air, blood pressure 148/75. CHEST: Decreased breath sounds. No wheezing. No coughing blood. CARDIAC: Normal S1, S2. No gallops. ABDOMEN: No masses. ASSESSMENT: Negative pressure edema versus aspiration, all cultures negative, morbid obesity, diabetes. PLAN: Switch over to oral antibiotics. Home any time. Pulmonary will follow at a distance. Job ID: [id number]
[2019-12-05] MEDS: traMADol HCl 50 MG TAB PO PRN (10:29)
[2019-12-05 14:45] VITALS: BP 167/108; TEMP 97.9
[2019-12-05] MEDS ORDERED: Amoxicillin/Potassium Clav 875 MG TAB PO SCH (21:00)
[2019-12-05] MEDS ORDERED: Insulin Glargine 30 UNITS in Pre-Filled Syringe 1 EACH SC SCH (21:00)
--- NOTE | 2019-12-06 02:26 | DIS ---
DATE OF ADMISSION: 12/03/2019 DATE OF DISCHARGE: 12/05/2019 DIAGNOSIS AT THE TIME OF DISCHARGE: 1. Negative pressure edema versus aspiration. 2. Uncontrolled diabetes mellitus type 1. 3. Left perineal abscess, status post recent surgical incision. 4. History of splenomegaly with thrombocytopenia, stable. HOSPITAL COURSE: The patient is a 29-year-old male, who was admitted to the hospital with cough and shortness of breath. He has a history of very poorly controlled diabetes mellitus in general and he has history of some skin issues cameron to hidradenitis with prior perineal abscesses. He was recently diagnosed with rectal abscess which was treated with incision and drainage. Subsequently, he was discharged on oral antibiotics at home and then he started having some harsh cough with some shortness of breath and subsequently, he presented to the emergency room. Apparently, he had some hemoptysis as per ER records. At this time, his white count was 8.2, hemoglobin 15.8, D-dimer is 0.39. Electrolytes were within normal limits. Lactic acid 1.5. Kidney function was within normal limits. Urinalysis showed 4 to 6 white cells, otherwise was negative. CT angiogram of the chest revealed scattered patchy/nodular and confluent moderate parenchymal density/consolidations with predominant involvement of the left mid lung zone, possible atypical pneumonia. The patient got admitted to the hospital. He was seen by Dr. Hernadez for Pulmonary evaluation, who recommended continuation of antibiotics and brief course of Decadron. The patient had followup chest x-ray the next day, which showed some findings of possible pneumonia in the left lung. Clinically, he improved quickly. Subsequently, he was switched to oral Augmentin and was released by supervisory forester. His glycemia was difficult to control since he was on steroids for short period of time. His glycemia is down to 200s today and clinically he is doing well. He does not require any oxygen. He was seen by Dr. Hernadez, who recommends to continue Augmentin and discharge him home. His area of peritoneal abscess, status post incision and drainage, was packed and there is no any obvious evidence that there is some infection. There is some intertrigo around the area, so he is going to be started on clotrimazole cream to use it for those areas. He will have prescription for Augmentin 875 mg twice a day for the next 7 days. He will put himself on his diabetic insulin regimen which he was taking prior to this hospitalization which is 70 units of long-acting insulin plus 30 units before each meal and he is going to follow up with primary care physician in the next 3 to 4 days. He will keep the post incision perineal area clean, washed with water and soap and he will have Tylenol No.3 for pain control. Job ID: [id number]
== END 2019-12-05 15:37 | disposition home or self-care (01) | DRG 193 ==
LOC: ERS 01:54 → ERHOLD 04:01 → T4-A 14:08
PROVIDERS: ADMIT Internal Medicine Sleep Medicine; ATTEND Internal Medicine
DX: J18.9 Pneumonia, unspecified organism (principal); J96.01 Acute respiratory failure with hypoxia; R04.2 Hemoptysis; E66.01 Morbid (severe) obesity due to excess calories; E10.9 Type 1 diabetes mellitus without complications; D69.6 Thrombocytopenia, unspecified; Z68.37 Body mass index [BMI] 37.0-37.9, adult; Z79.4 Long term (current) use of insulin
CPT/HCPCS: 36415; 36416; 71046; 71275; 80053; 80202; 80306; 81003; 81015; 83036; 83605; 85025; 85379; 85610; 85730; 87040; 87804; 93005; 94640; 96365; 96367; 96375; J0456; J0692; J0696; J1100; J1815; J1885; J2270; J2405; J2550; J3370; J3490; J7050; J7620; Q9967

== ENCOUNTER 2020-01-14 21:43 | Emergency (ER) | payer OTHER, SELFPAY ==
[~2020-01-14 21:43] MED LIST changes: -Dexamethasone 20 MG/5 ML VIAL ONE; -Lidocaine 1% PF 5 ML VIAL ONE; -Ondansetron PF 4 MG/2 ML Vial ONE; -PROPOFOL 200 MG/20 ML VIAL ONE
[2020-01-14] MEDS ORDERED: Dexamethasone 10 MG/ML VIAL ONE (22:06)
[2020-01-14] MEDS ORDERED: Lorazepam 2 MG/ML VIAL ONE (22:13)
--- NOTE | 2020-01-14 22:13 | RAD ---
Chest one view HISTORY: Chest pain. Dyspnea. COMPARISON: 12/04/2019. FINDINGS: Cardiac silhouette and pulmonary vasculature are unremarkable. Mediastinum is midline. Left lung infiltrate has resolved. No confluent airspace consolidation or evidence of pneumothorax. hall monitor leads overlie the ch est. IMPRESSION : No active cardiopulmonary abnormalities are demonstrated.
[2020-01-14 22:14] LABS: #Basophils 0.2 thou/uL (0.0-0.2); #Eosinphils 0.1 thou/uL (0.0-0.7); #Lymphocytes 1.7 thou/uL (1.20-3.40); #Monocytes 0.4 thou/uL (0.11-0.59); #Neutrophils 4.4 thou/uL (1.40-6.50); %Basophils 2.3 % (0.0-1.0); %Eosinophils 0.9 % (0.0-10.0); %Monocytes 5.5 % (0.0-10.0); %Neutrophils 66.3 % (42.0-75.0); Hemoglobin 17.5 g/dL (14.0-18.0); Mean Corpuscular HGB CONC 36.2 g/dL (32.0-36.0); Mean Corpuscular Hemoglobin 27.9 pg (27.0-31.0); Mean Platelet Volume 8.3 fL (7.4-10.4); Platelet Count 170 thou/uL (130-400); RBC Distribution Width 13.5 % (11.5-14.5); Red Blood Cell (RBC) Count 6.26 mill/uL (4.70-6.10); White Blood Cell (WBC) Count 6.6 thou/uL (4.8-10.8)
[2020-01-14] MEDS ORDERED: Morphine 4 MG/ML VIAL ONE ×2 (22:32→23:23)
[2020-01-14] MEDS ORDERED: Ondansetron PF 4 MG/2 ML Vial ONE (22:32)
[2020-01-14 22:33] LABS: ALT (SGPT) 47 U/L (8-55); AST (SGOT) 32 U/L (5-34); Albumin 4.5 g/dL (3.5-5.0); Alkaline Phosphatase 131 U/L (40-110); Anion Gap 22 mmol/L (10-20); BUN (Urea Nitrogen) 17 mg/dL (8.9-20.6); Bilirubin, Total 0.7 mg/dL (0.2-1.2); Calc. Creatinine Clearance 0 mL/min (70-130); Calcium 9.9 mg/dL (7.8-10.44); Carbon Dioxide 17 mmol/L (22-29); Chloride 99 mmol/L (98-107); Estimated GFR-MDRD 80; Globulin 4.3 g/dL (2.4-3.5); Glucose 314 mg/dL (70-105); Potassium 4.9 mmol/L (3.5-5.1); Protein, Total 8.8 g/dL (6.0-8.3); Sodium 133 mmol/L (136-145)
--- NOTE | 2020-01-14 23:26 | CT ---
CT angiogram chest with IV contrast and 3-D imaging HISTORY: Cough. Dyspnea. COMPARISON: 12/03/2019. FINDINGS: There is good contrast opacification pulmonary arteries and thoracic aorta with normal bran louise of the great vessels at the aortic arch. Tiny nonspecific subpleural nodule is apparent at the right posterolateral lung base. Calcified subpleural granuloma at the lingula of the left upper l obe. Lungs are now well-inflated. The infiltrates that were on the prior study are no longer present. No pleural fluid or mediastinal adenopathy. IMPRESSION : No CT evidence of pulmonary embolus. Interval resolution of the multifocal infiltrates are present on the previous exam. No new abnormalit ies.
--- NOTE | 2020-01-17 09:49 | EKG ---
Test Reason : Blood Pressure : / mmHG Vent. Rate : 103 BPM Atrial Rate : 103 BPM P-R Int : 146 ms QRS Dur : 084 ms QT Int : 318 ms P-R-T Axes : 012 010 028 degrees QTc Int : 416 ms Sinus tachycardia Inferior infarct , age undetermined Abnormal ECG Confirmed by CHELSEA MARINO DO ([id number]), loan expeditor EUSEBIA PEARL ([id number]) on 01/17/2020 9:49:31 AM Referred By: Confirmed By:CHELSEA MARINO DO
== END 2020-01-15 00:10 | disposition home or self-care (01) ==
LOC: ERS 21:43
DX: M94.0 Chondrocostal junction syndrome [Tietze] (principal); J98.01 Acute bronchospasm; E10.9 Type 1 diabetes mellitus without complications; F17.220 Nicotine dependence, chewing tobacco, uncomplicated
CPT/HCPCS: 71045; 71275; 80053; 82010; 85025; 85379; 93005; 96374; 96375; 96376; J1100; J2060; J2270; J2405; J7620; Q9967

== ENCOUNTER 2020-01-26 01:42 | Emergency (ER) | payer OTHER, SELFPAY ==
[2020-01-26] MEDS ORDERED: Ketorolac Tromethamine 30 MG/ML VIAL ONE (02:12)
[2020-01-26 03:14] LABS: Sodium 136 mmol/L (136-145)
[2020-01-26 03:15] LABS: Chloride 101 mmol/L (98-107); Potassium 5.3 mmol/L (3.5-5.1)
[2020-01-26 03:17] LABS: Carbon Dioxide 20 mmol/L (22-29)
[2020-01-26 03:21] LABS: Anion Gap 20 mmol/L (10-20); BUN (Urea Nitrogen) 20 mg/dL (8.9-20.6); Calc. Creatinine Clearance 0 mL/min (70-130); Estimated GFR-MDRD 80
[2020-01-26 03:22] LABS: Calcium 8.6 mg/dL (7.8-10.44); Glucose 492 mg/dL (70-105)
[2020-01-26 03:23] LABS: ALT (SGPT) 31 U/L (8-55); AST (SGOT) 42 U/L (5-34); Alkaline Phosphatase 136 U/L (40-110); Bilirubin, Total 0.2 mg/dL (0.2-1.2); Globulin 2.6 g/dL (2.4-3.5); Protein, Total 6.6 g/dL (6.0-8.3)
[2020-01-26 03:29] LABS: Hemoglobin 14.4 g/dL (14.0-18.0); Mean Corpuscular HGB CONC 35.5 g/dL (32.0-36.0); Mean Corpuscular Hemoglobin 27.8 pg (27.0-31.0); Mean Corpuscular Volume 78.4 fL (78.0-98.0); Mean Platelet Volume 9.5 fL (7.4-10.4); Platelet Count 189 thou/uL (130-400); RBC Distribution Width 14.3 % (11.5-14.5); Red Blood Cell (RBC) Count 5.16 mill/uL (4.70-6.10)
[2020-01-26 03:30] LABS: Platelet Morphology Comment Appears Adequate; RBC Morphology Normal
--- NOTE | 2020-01-26 09:02 | CT ---
PRELIMINARY REPORT/[facility]/EMERGENCY AFTER HOURS PROCEDURE EXAM: CTA Chest with Intravenous Contrast CLINICAL HISTORY: PT REPORTS CHEST PAIN ONSET 30 MINS AGO, STATES HIS PAIN BEGAN AND SHORTLY AFTER HE BELIEVES HE HAD A SYNCOPAL EPISODE. TECHNIQUE: Axial CTA images of the chest with intravenous contrast. MIP reconstructed images were cre ated and reviewed. CONTRAST: With; ISOVUE 370,100mL COMPARISON: CT - CTA ANGIO CHEST W WO CON - 12/03/2019 02:42 AM E BUSINESS PROJECT MANAGER FINDINGS: PULMONARY ARTERIES There is no intraluminal filling defect suspicious for PE. AORTA No thoracic aortic aneurysm or dissection. LUNGS Lung infiltrates seen on the prior examination have resolved. PLEURAL SPACES No pleural effusion. No pneumothorax. HEART AND MEDIASTINUM No cardiomegaly. No significant pericardial effusion. BONES No focal osseous abnormality or acute fracture. UPPER ABDOMEN Diffuse fatty infiltration of the liver, similar to prior. Marked nonspecific splenomegaly, similar to prior. IMPRESSION: 1. There is no intraluminal filling defect suspicious for PE. 2. Lung infiltrates seen on the prior examination have resolved. 3. Diffuse fatty infiltration of the liver, similar to prior. 4. Marked nonspecific splenomegaly, similar to prior. ELECTRONICALLY SIGNED BY: Sidney Siu MD Jan 26, 2020 2:54:49 AM CDT FINAL REPORT CT PULMONARY ANGIOGRAM WITH IV CONTRAST AND 3D POSTPROCESSING: I agree with the preliminary report given by Dr. Sidney Siu of [facility].
[2020-01-26] MEDS ORDERED: Iopamidol-370 76% 500 ML 1 ML ONE (09:24)
--- NOTE | 2020-01-28 14:57 | EKG ---
Test Reason : Blood Pressure : / mmHG Vent. Rate : 098 BPM Atrial Rate : 098 BPM P-R Int : 144 ms QRS Dur : 082 ms QT Int : 328 ms P-R-T Axes : 023 027 055 degrees QTc Int : 418 ms Normal sinus rhythm ST elevation consider inferolateral injury or acute infarct ACUTE DE / STEMI No STEMI Abnormal ECG Confirmed by CAROLINA Small, NICANOR ([id number]), editorial project manager DAO STAPLETON ([id number]) on 01/28/2020 2:56:44 PM Referred By: Confirmed By:NICANOR FIGUEROA M.D.
== END 2020-01-26 04:10 | disposition home or self-care (01) ==
LOC: ERS 01:42
DX: R07.89 Other chest pain (principal); E10.9 Type 1 diabetes mellitus without complications; F17.220 Nicotine dependence, chewing tobacco, uncomplicated
CPT/HCPCS: 71275; 80053; 84484; 85025; 93005; 96361; 96374; 96376; J1885; Q9967

== ENCOUNTER 2020-01-30 14:10 | Emergency (ER) | payer SELFPAY ==
--- NOTE | 2020-01-30 14:45 | RAD ---
RADIOGRAPH CHEST 1 VIEW: DATE: 01/30/2020 HISTORY: 29-year-old type I diabetic male with altered mental status: Found unresponsive. Concern for aspirati on. FINDINGS: The visualized lung quinonez are clear. The cardiomediastinal silhouette and hilar shadows are normal. The lateral costophrenic angles are sharp. The osseous structures appear normal. There is no pneumothorax. IMPRESSION: Negative.
[2020-01-30] MEDS ORDERED: Promethazine HCl 25 MG/ML VIAL ONE (15:03)
[2020-01-30 15:09] LABS: Bilirubin Negative (Negative); Blood, Urine Negative (Negative); Clarity Clear (Clear); Glucose, Urine (Dipstick) Greater than 1000 mg/dL (Negative); Leukocyte Negative Leu/uL (Negative); Nitrite Negative (Negative); Protein, Urine (Dipstick) Negative (Neg-Trace); Urobilinogen Normal mg/dL (Less than 2)
[2020-01-30 15:22] LABS: Amphetamine Not Detected (NotDetected); Barbiturates Screen Not Detected (NotDetected); Benzodiazepine Screen Not Detected (NotDetected); Cocaine Metabolite Screen Not Detected (NotDetected); Medtox Control Line Valid? VALID (VALID); Medtox Reader # READER 4; Methadone Not Detected (NotDetected); Methamphetamine Not Detected (NotDetected); Opiate Screen Not Detected (NotDetected); Oxycodone Screen Not Detected (NotDetected); Phencyclidine (PCP) Not Detected (NotDetected); THC/Cannabinoid Screen Not Detected (NotDetected); Tricyclic Screen Not Detected (NotDetected)
--- NOTE | 2020-01-30 15:28 | CT ---
CT OF THE BRAIN WITHOUT CONTRAST: 01/30/20 INDICATION: History of generalized weakness and unresponsive episode. COMPARISON: None. FINDINGS: No acute infarct, hemorrhage or hydrocephalus is present. Septum pellucidum and third ventricle are m idline. Mastoid air cells and paranasal sinuses are clear. IMPRESSION: No acute intracranial abnormality. POS: [facility]
[2020-01-30 15:33] LABS: Base Excess-Venous 1.8 mmol/L (-2.0 to 3.0); Bicarbonate (HCO3v) 27.4 mmol/L (22.0-28.0); CO2 Tension (PvCO2) 45.1 mmHg (40.0-50.0); Calcium, Ionized 0.96 mmol/L (See Comments:); Chloride 100 mmol/L (98-107); Potassium 9.7 mmol/L (3.5-5.1); Sodium 130 mmol/L (138-145); T. Carbon Dioxide 28.8 mmol/L (22.0-28.0); vO2 Saturation-calc 99.4 % (60.0-85.0)
[2020-01-30 15:54] LABS: #Lymphocytes 0.9 thou/uL (1.20-3.40); #Monocytes 0.3 thou/uL (0.11-0.59); %Basophils 0.4 % (0.0-1.0); %Eosinophils 0.9 % (0.0-10.0); %Lymphocytes 17.5 % (21.0-51.0); %Monocytes 4.8 % (0.0-10.0); %Neutrophils 76.4 % (42.0-75.0); Hemoglobin 16.1 g/dL (14.0-18.0); Mean Corpuscular HGB CONC 35.3 g/dL (32.0-36.0); Mean Corpuscular Hemoglobin 30.2 pg (27.0-31.0); Mean Corpuscular Volume 76.5 fL (78.0-98.0); Mean Platelet Volume 9.4 fL (7.4-10.4); Platelet Count 146 thou/uL (130-400); RBC Distribution Width 13.6 % (11.5-14.5); Red Blood Cell (RBC) Count 5.34 mill/uL (4.70-6.10); White Blood Cell (WBC) Count 5.2 thou/uL (4.8-10.8)
[2020-01-30] MEDS ORDERED: Morphine 4 MG/ML VIAL ONE (16:14)
[2020-01-30 17:27] LABS: Magnesium 1.7 mg/dL (1.6-2.6); Phosphorus 4.1 mg/dL (2.3-4.7)
[2020-01-30 17:29] LABS: Acetaminophen 7.2 mcg/mL (10.0-30.0); Alcohol Less than 10 mg/dL (Less than 10)
[2020-01-30 17:30] LABS: Potassium 5.3 mmol/L (3.5-5.1); Sodium 138 mmol/L (136-145)
[2020-01-30 17:32] LABS: Chloride 102 mmol/L (98-107)
[2020-01-30 17:34] LABS: Anion Gap 18 mmol/L (10-20)
[2020-01-30 17:36] LABS: BUN (Urea Nitrogen) 14 mg/dL (8.9-20.6); Calc. Creatinine Clearance 0 mL/min (70-130); Estimated GFR-MDRD 85
[2020-01-30] MEDS ORDERED: Ketorolac Tromethamine 30 MG/ML VIAL ONE (17:37)
[2020-01-30 17:38] LABS: Calcium 9.2 mg/dL (7.8-10.44)
[2020-01-30 17:39] LABS: Bilirubin, Total 0.4 mg/dL (0.2-1.2); Protein, Total 7.1 g/dL (6.0-8.3)
[2020-01-30 17:43] LABS: Carbon Dioxide 23 mmol/L (22-29); Glucose 420 mg/dL (70-105)
[2020-01-30 17:44] LABS: Albumin 4.2 g/dL (3.5-5.0); Globulin 2.9 g/dL (2.4-3.5)
[2020-01-30 17:45] LABS: AST (SGOT) 36 U/L (5-34); Alkaline Phosphatase 134 U/L (40-110)
[2020-01-30 17:46] LABS: ALT (SGPT) 35 U/L (8-55)
[2020-01-30 17:48] LABS: Salicylate Less than 8.0 mg/dL (15.0-30.0)
[2020-01-30] MEDS ORDERED: diphenhydrAMINE 50 MG/ML VIAL ONE (18:38)
[2020-01-30] MEDS ORDERED: Acetaminophen 500 MG TAB ONE (18:38)
== END 2020-01-30 18:45 | disposition home or self-care (01) ==
LOC: ERS 14:10
DX: R51 Headache (principal); E10.9 Type 1 diabetes mellitus without complications
CPT/HCPCS: 36415; 36416; 70450; 71045; 80053; 80306; 80307; 81003; 82010; 82330; 82803; 83605; 83735; 84100; 84484; 85025; 93005; 94760; 96361; 96365; 96375; J1200; J1885; J2270; J2550

== ENCOUNTER 2020-03-10 18:01 | Emergency (ER) | payer OTHER, SELFPAY | END 2020-03-10 19:08 | disposition home or self-care (01) | LOC: ERS 18:01 | DX: R05 Cough (principal); R03.0 Elevated blood-pressure reading, without diagnosis of hypertension; E10.9 Type 1 diabetes mellitus without complications; Z20.828 Contact with and (suspected) exposure to other viral communicable diseases | CPT/HCPCS: 87635; 99283; U0003 ==

== ENCOUNTER 2020-03-16 04:17 | Emergency (ER) | payer SELFPAY ==
[2020-03-16] MEDS ORDERED: Lidocaine 1% w/Epinephrine 1:100K 20 ML VIAL ONE (04:35)
[2020-03-16] MEDS ORDERED: Insulin Regular 300 UNITS/3 ML VIAL ONE (05:02)
[2020-03-16 05:24] LABS: Anion Gap 18 mmol/L (10-20); BUN (Urea Nitrogen) 11 mg/dL (8.9-20.6); Calc. Creatinine Clearance 0 mL/min (70-130); Carbon Dioxide 19 mmol/L (22-29); Chloride 99 mmol/L (98-107); Estimated GFR-MDRD 78; Glucose 496 mg/dL (70-105); Potassium 4.6 mmol/L (3.5-5.1); Sodium 131 mmol/L (136-145)
[2020-03-16] MEDS ORDERED: Ketorolac Tromethamine 30 MG/ML VIAL ONE (05:42)
== END 2020-03-16 06:17 | disposition home or self-care (01) ==
LOC: ERS 04:17
DX: L02.412 Cutaneous abscess of left axilla (principal); E10.65 Type 1 diabetes mellitus with hyperglycemia
CPT/HCPCS: 10060; 36416; 80048; 82010; 87070; 87077; 87186; 87205; 96361; 96374; 96375; J1815; J1885

== ENCOUNTER 2020-06-06 21:08 | Emergency (ER) | payer MEDICAID, OTHER | END 2020-06-06 22:17 | disposition home or self-care (01) | LOC: ERS 21:08 | DX: L73.9 Follicular disorder, unspecified (principal); B20 Human immunodeficiency virus [HIV] disease; E10.9 Type 1 diabetes mellitus without complications | CPT/HCPCS: 99283 ==

== ENCOUNTER 2020-11-07 12:30 | Observation (INO) | payer SELFPAY ==
[2020-11-07] MEDS ORDERED: Ondansetron PF 4 MG/2 ML Vial ONE (14:03)
[2020-11-07] MEDS ORDERED: Morphine 4 MG/ML VIAL ONE ×2 (14:03→15:47)
[2020-11-07 14:25] LABS: Hemoglobin 15.8 g/dL (14.0-18.0); Mean Corpuscular Hemoglobin 28.3 pg (27.0-31.0); Mean Corpuscular Volume 76.3 fL (78.0-98.0); Mean Platelet Volume 8.6 fL (7.4-10.4); Platelet Count 115 thou/uL (130-400); RBC Distribution Width 13.7 % (11.5-14.5); Red Blood Cell (RBC) Count 5.58 mill/uL (4.70-6.10); White Blood Cell (WBC) Count 4.2 thou/uL (4.8-10.8)
[2020-11-07 14:28] LABS: #Monocytes 0.2 thou/uL (0.11-0.59); %Basophils 0.1 % (0.0-1.0); %Eosinophils 1.1 % (0.0-10.0); %Lymphocytes 22.9 % (21.0-51.0); %Monocytes 5.1 % (0.0-10.0); %Neutrophils 72.4 % (42.0-75.0); Mean Corpuscular HGB CONC 36.2 g/dL (32.0-36.0)
[2020-11-07 14:43] LABS: ALT (SGPT) 28 U/L (8-55); AST (SGOT) 26 U/L (5-34); Albumin 4.1 g/dL (3.5-5.0); Alkaline Phosphatase 106 U/L (40-110); Anion Gap 22 mmol/L (10-20); BUN (Urea Nitrogen) 15 mg/dL (8.9-20.6); Bilirubin, Total 0.6 mg/dL (0.2-1.2); Calc. Creatinine Clearance 0 mL/min (70-130); Calcium 9.1 mg/dL (7.8-10.44); Carbon Dioxide 17 mmol/L (22-29); Chloride 97 mmol/L (98-107); Globulin 4.5 g/dL (2.4-3.5); Glucose 484 mg/dL (70-105); Potassium 4.7 mmol/L (3.5-5.1); Protein, Total 8.6 g/dL (6.0-8.3); Sodium 131 mmol/L (136-145)
[2020-11-07 17:37] LABS: CO2 Tension (PvCO2) 47.2 mmHg (40.0-50.0); Chloride 99 mmol/L (98-107); Hemoglobin - Calc 13.3 g/dL (14.0-18.0); Potassium 4.5 mmol/L (3.5-5.1); Sodium 135 mmol/L (138-145); T. Carbon Dioxide 28.4 mmol/L (22.0-28.0)
[2020-11-07] MEDS ORDERED: HYDROmorphone 0.5 MG/0.5 ML SYRINGE ONE ×2 (17:57→20:47)
[2020-11-07] MEDS ORDERED: Piperacillin/Tazobactam 4.5 GM VIAL ONE (19:28)
[2020-11-07] MEDS ORDERED: Insulin Regular 300 UNITS/3 ML VIAL ONE (21:26)
[2020-11-07] MEDS ORDERED: Acetaminophen 325 MG TAB PO PRN (22:19)
[2020-11-07] MEDS ORDERED: Ondansetron PF 4 MG/2 ML Vial IVP PRN (22:19)
[2020-11-07] MEDS ORDERED: HYDROmorphone 0.5 MG/0.5 ML SYRINGE SLOW IVP PRN (22:27)
[2020-11-07] MEDS ORDERED: VANCOMYCIN 2 GRAM/400 ML BAG 2 GM in Premix Bag 1 BAG IVPB SCH (23:00)
[2020-11-07] MEDS ORDERED: Insulin Glargine 30 UNITS in Pre-Filled Syringe 1 EACH SC SCH (23:00)
[2020-11-07] MEDS ORDERED: Enoxaparin Sodium 40 MG/0.4 ML SYRINGE SC SCH (23:00)
[2020-11-07 23:20] LABS: Anion Gap 19 mmol/L (10-20); BUN (Urea Nitrogen) 16 mg/dL (8.9-20.6); Calc. Creatinine Clearance 0 mL/min (70-130); Calcium 8.6 mg/dL (7.8-10.44); Carbon Dioxide 19 mmol/L (22-29); Chloride 100 mmol/L (98-107); Glucose 288 mg/dL (70-105); Potassium 4.2 mmol/L (3.5-5.1); Sodium 134 mmol/L (136-145)
[2020-11-08] MEDS: Zolpidem Tartrate 5 MG TAB PO PRN ×2 (00:43→20:22)
[2020-11-08 01:01] VITALS: BMI 34.3
[2020-11-08] MEDS ORDERED: Piperacillin/Tazobactam 3.375 GM VIAL ONE (01:04)
[2020-11-08] MEDS: HYDROcodone/Acetaminophen 10/325 mg Tablet PO PRN ×4 (01:07→22:55)
[2020-11-08] MEDS: Morphine 4 MG/ML VIAL SLOW IVP PRN ×4 (01:08→19:15)
[2020-11-08] MEDS: Piperacillin/Tazobactam 3.375 GM in Sodium Chloride 0.9% 100 ML IVPB SCH ×4 (01:09→20:11)
[2020-11-08] MEDS: Sodium Chloride 0.9% 1,000 ML IV SCH ×3 (01:10→20:22)
[2020-11-08 04:56] LABS: SARS-CoV-2 PCR by NAA Not Detected (NotDetected)
[2020-11-08] MEDS: HumaLOG 300 UNITS/3 ML VIAL SC PRN ×3 (06:27→20:22)
[2020-11-08 07:04] LABS: Hemoglobin 14.1 g/dL (14.0-18.0); Mean Corpuscular HGB CONC 35.7 g/dL (32.0-36.0); Mean Corpuscular Hemoglobin 27.6 pg (27.0-31.0); Mean Corpuscular Volume 77.2 fL (78.0-98.0); Mean Platelet Volume 8.1 fL (7.4-10.4); Platelet Count 110 thou/uL (130-400); RBC Distribution Width 13.6 % (11.5-14.5); Red Blood Cell (RBC) Count 5.13 mill/uL (4.70-6.10); White Blood Cell (WBC) Count 4.5 thou/uL (4.8-10.8)
[2020-11-08 07:13] LABS: Anion Gap 18 mmol/L (10-20); BUN (Urea Nitrogen) 15 mg/dL (8.9-20.6); Calc. Creatinine Clearance 173 mL/min (70-130); Calcium 8.2 mg/dL (7.8-10.44); Carbon Dioxide 20 mmol/L (22-29); Chloride 100 mmol/L (98-107); Glucose 292 mg/dL (70-105); Potassium 4.5 mmol/L (3.5-5.1); Sodium 133 mmol/L (136-145)
[2020-11-08] MEDS: Enoxaparin Sodium 40 MG/0.4 ML SYRINGE SC SCH (08:56)
[2020-11-08] MEDS ORDERED: Vancomycin 1 GM in Premix Bag 1 BAG IVPB SCH (09:00)
[2020-11-08 09:21] LABS: #Eosinphils 0.1 thou/uL (0.0-0.7); #Lymphocytes 1.2 thou/uL (1.20-3.40); #Monocytes 0.3 thou/uL (0.11-0.59); #Neutrophils 2.8 thou/uL (1.40-6.50); %Basophils 0.4 % (0.0-1.0); %Eosinophils 1.5 % (0.0-10.0); %Lymphocytes 27.2 % (21.0-51.0); %Monocytes 7.5 % (0.0-10.0); %Neutrophils 63.5 % (42.0-75.0); MDiff Complete? YES; Microcytosis SLIGHT = 6-15 cells (100X) (0-5/hpf); Platelet Morphology Comment Appears Decreased
[2020-11-08] MEDS: VANCOMYCIN 2 GRAM/400 ML BAG 2 GM in Premix Bag 1 BAG IVPB SCH ×2 (10:03→16:39)
[2020-11-08] MEDS: Insulin Glargine 30 UNITS in Pre-Filled Syringe 1 EACH SC SCH ×2 (10:18→20:23)
[2020-11-08] MEDS ORDERED: Glycopyrrolate 0.2 MG/ML 5 ML SYRINGE ONE (10:23)
[2020-11-08] MEDS ORDERED: Rocuronium Bromide 10 MG/ML (10ML VIAL) ONE (10:23)
[2020-11-08] MEDS ORDERED: Ketorolac Tromethamine 30 MG/ML VIAL ONE (10:23)
[2020-11-08] MEDS ORDERED: Lidocaine 1% PF 5 ML VIAL ONE (10:23)
[2020-11-08] MEDS ORDERED: Succinylcholine 200 MG/10 ml SYRINGE FS ONE (10:23)
[2020-11-08] MEDS ORDERED: Ondansetron PF 4 MG/2 ML Vial ONE (10:23)
[2020-11-08] MEDS ORDERED: PROPOFOL 200 MG/20 ML VIAL ONE (10:23)
[2020-11-08] MEDS ORDERED: Fentanyl 100 MCG/2 ML VIAL ONE ×4 (13:13→15:34)
[2020-11-08] MEDS ORDERED: Lidocaine 2% Jelly 5 ML TUBE ONE (13:38)
[2020-11-08] MEDS ORDERED: XYLOCAINE 2%-EPI 1:100,000 20 ML VIAL ONE (13:38)
[2020-11-08] MEDS ORDERED: Bupivacaine PF 0.5% 30 ML VIAL ONE (13:38)
[2020-11-08] MEDS ORDERED: Ondansetron HCl/PF 4 MG/2 ML Vial IVP PRN (15:13)
[2020-11-08] MEDS ORDERED: Promethazine HCl 25 MG/ML VIAL IM PRN (15:13)
[2020-11-08] MEDS ORDERED: Promethazine HCl 25 MG/ML VIAL SLOW IVP PRN (15:13)
[2020-11-08] MEDS ORDERED: HumaLOG 300 UNITS/3 ML VIAL SC PRN (22:20)
[2020-11-08] MEDS ORDERED: diphenhydrAMINE 25 MG CAP PO PRN (22:20)
[2020-11-09] MEDS: VANCOMYCIN 2 GRAM/400 ML BAG 2 GM in Premix Bag 1 BAG IVPB SCH ×2 (00:12→09:17)
[2020-11-09] MEDS: Morphine 4 MG/ML VIAL SLOW IVP PRN ×3 (00:13→08:37)
[2020-11-09 00:58] LABS: Vancomycin, Trough 26.9 ug/mL
[2020-11-09] MEDS ORDERED: Fentanyl 100 MCG/2 ML VIAL SLOW IVP SCH (01:45)
[2020-11-09 02:01] LABS: #Lymphocytes 1.2 thou/uL (1.20-3.40); #Monocytes 0.2 thou/uL (0.11-0.59); #Neutrophils 2.3 thou/uL (1.40-6.50); %Basophils 0.2 % (0.0-1.0); %Eosinophils 1.1 % (0.0-10.0); %Monocytes 6.1 % (0.0-10.0); %Neutrophils 61.6 % (42.0-75.0); Hemoglobin 13.9 g/dL (14.0-18.0); Mean Corpuscular HGB CONC 36.3 g/dL (32.0-36.0); Mean Corpuscular Volume 77.1 fL (78.0-98.0); Mean Platelet Volume 7.8 fL (7.4-10.4); Platelet Count 108 thou/uL (130-400); RBC Distribution Width 13.2 % (11.5-14.5); Red Blood Cell (RBC) Count 4.95 mill/uL (4.70-6.10); White Blood Cell (WBC) Count 3.8 thou/uL (4.8-10.8)
[2020-11-09 02:15] LABS: Lactic Acid 1.5 mmol/L (0.5-2.2)
[2020-11-09] MEDS: Piperacillin/Tazobactam 3.375 GM in Sodium Chloride 0.9% 100 ML IVPB SCH ×3 (02:15→15:04)
[2020-11-09 02:29] LABS: ALT (SGPT) 25 U/L (8-55); AST (SGOT) 18 U/L (5-34); Albumin 3.5 g/dL (3.5-5.0); Alkaline Phosphatase 73 U/L (40-110); Anion Gap 17 mmol/L (10-20); BUN (Urea Nitrogen) 13 mg/dL (8.9-20.6); Bilirubin, Total 0.5 mg/dL (0.2-1.2); Calc. Creatinine Clearance 183 mL/min (70-130); Calcium 8.3 mg/dL (7.8-10.44); Carbon Dioxide 20 mmol/L (22-29); Chloride 103 mmol/L (98-107); Globulin 2.9 g/dL (2.4-3.5); Glucose 299 mg/dL (70-105); Lipase 32 U/L (8-78); Magnesium 1.6 mg/dL (1.6-2.6); Protein, Total 6.4 g/dL (6.0-8.3); Sodium 136 mmol/L (136-145)
[2020-11-09 02:40] LABS: Bacteria/HPF None Seen HPF (None Seen); Bilirubin Negative (Negative); Blood, Urine Negative (Negative); Clarity Clear (Clear); Glucose, Urine (Dipstick) Greater than 1000 mg/dL (Negative); Ketone, Urine Trace mg/dL (Negative); Leukocyte Negative Leu/uL (Negative); Nitrite Negative (Negative); Protein, Urine (Dipstick) 30 mg/dL (Neg-Trace); RBC/HPF 0-3 HPF (0-3); Specific Gravity, Urine 1.035 (1.002-1.036); Squamous Epithelial None Seen HPF (0-3); Urobilinogen Normal mg/dL (Less than 2); WBC/HPF 0-3 HPF (0-3); pH, Urine 5.5 (5.0-9.0)
[2020-11-09 02:50] LABS: Urine Culture Reflex No No
[2020-11-09] MEDS: HumaLOG 300 UNITS/3 ML VIAL SC PRN ×2 (06:34→11:53)
[2020-11-09] MEDS: HYDROcodone/Acetaminophen 10/325 mg Tablet PO PRN (07:16)
[2020-11-09] MEDS ORDERED: Magnesium Sulfate 2 GM in Sodium Chloride 0.9% 100 ML IV SCH (07:45)
[2020-11-09 07:50] VITALS: TEMP 98.9
[2020-11-09] MEDS ORDERED: Magnesium 2 GM/50 ML 2 GM in Premix Bag 1 BAG IVPB SCH (08:00)
[2020-11-09] MEDS: Enoxaparin Sodium 40 MG/0.4 ML SYRINGE SC SCH (08:38)
[2020-11-09] MEDS: Sodium Chloride 0.9% 1,000 ML IV SCH (08:38)
[2020-11-09] MEDS ORDERED: Bictegrav/Emtricit/Tenofov Ala [Biktarvy 50-200-25 Mg Tablet PO SCH (09:00)
[2020-11-09 09:09] LABS: Vancomycin, Trough 11.8 ug/mL
[2020-11-09] MEDS: Insulin Glargine 30 UNITS in Pre-Filled Syringe 1 EACH SC SCH (09:17)
[2020-11-09 11:34] VITALS: BP 114/74
[2020-11-09] MEDS ORDERED: VANCOMYCIN 1.75 GM/350 ML BAG 1.75 GM in Premix Bag 1 BAG IVPB SCH (15:00)
[2020-11-09] MEDS ORDERED: Vancomycin HCl 2.5 GM in Sodium Chloride 0.9% 500 ML IVPB SCH (17:00)
[2020-11-10] MEDS ORDERED: Bictegrav/Emtricit/Tenofov Ala [Biktarvy 50-200-25 Mg Tablet PO SCH (09:00)
== END 2020-11-09 15:50 | disposition home or self-care (01) ==
LOC: ERS 12:30 → ERHOLD 20:07 → INTOOBSV 20:07 → SURG A 11-08 00:05
PROVIDERS: ADMIT Internal Medicine; ATTEND Internal Medicine
PROC: 0D9QXZZ Drainage of Anus, External Approach (ICD-10-PCS; principal; 2020-11-09)
DX: K61.1 Rectal abscess (principal); E10.10 Type 1 diabetes mellitus with ketoacidosis without coma; E78.1 Pure hyperglyceridemia; F17.220 Nicotine dependence, chewing tobacco, uncomplicated; Z79.4 Long term (current) use of insulin; Z79.899 Other long term (current) drug therapy; Z20.822 Contact with and (suspected) exposure to COVID-19; Z21 Asymptomatic human immunodeficiency virus [HIV] infection status
CPT/HCPCS: 36415; 36416; 51798; 72193; 80048; 80053; 80202; 81001; 82010; 82330; 82803; 83605; 83690; 83735; 85025; 87040; 87070; 87076; 87077; 87186; 87205; 87635; 96365; 96366; 96367; 96372; 96375; 96376; G0378; J1170; J1650; J1815; J1885; J2270; J2405; J2543; J2704; J3010; J3370; J3475; J3490; Q0163; Q9967; S0020; U0003; U0005

== ENCOUNTER 2020-12-30 15:38 | Inpatient (IN) | payer BC, SELFPAY ==
[2020-12-30] MEDS ORDERED: Ondansetron PF 4 MG/2 ML Vial ONE (16:06)
[2020-12-30] MEDS ORDERED: Morphine 4 MG/ML VIAL ONE ×3 (16:38→21:55)
[2020-12-30 16:51] LABS: ALT (SGPT) 23 U/L (8-55); AST (SGOT) 72 U/L (5-34); Albumin 4.2 g/dL (3.5-5.0); Alkaline Phosphatase 113 U/L (40-110); Anion Gap 17 mmol/L (10-20); BUN (Urea Nitrogen) 11 mg/dL (8.9-20.6); Bilirubin, Total 0.7 mg/dL (0.2-1.2); Calc. Creatinine Clearance 0 mL/min (70-130); Calcium 9.1 mg/dL (7.8-10.44); Carbon Dioxide 21 mmol/L (22-29); Chloride 96 mmol/L (98-107); Globulin 5.2 g/dL (2.4-3.5); Glucose 528 mg/dL (70-105); Potassium 4.9 mmol/L (3.5-5.1); Protein, Total 9.4 g/dL (6.0-8.3); Sodium 129 mmol/L (136-145)
[2020-12-30 17:12] LABS: Bacteria/HPF None Seen HPF (None Seen); Bilirubin Negative (Negative); Blood, Urine 1+ (Negative); Clarity Clear (Clear); Glucose, Urine (Dipstick) Greater than 1000 mg/dL (Negative); Ketone, Urine Negative (Negative); Leukocyte Negative Leu/uL (Negative); Nitrite Negative (Negative); Protein, Urine (Dipstick) 10 mg/dL (Neg-Trace); RBC/HPF 0-3 HPF (0-3); Specific Gravity, Urine 1.035 (1.002-1.036); Squamous Epithelial None Seen HPF (0-3); Urobilinogen Normal mg/dL (Less than 2); WBC/HPF 0-3 HPF (0-3); pH, Urine 5.5 (5.0-9.0)
[2020-12-30 17:29] LABS: Actual Bicarbonate (HCO3v) 27 mEq/L (22-28); Analyzer IN Cardio ER; Base Excess -0.2 mEq/L (-2.0 to +3.0); Calcium, Ionized (venous) 1.17 mmol/L (1.16-1.32); Chloride (VBG) 99 mmol/L (98-106); Hemoglobin (Hb) 14.9 g/dL (13.2-17.3); Potassium (VBG) 4.91 mmol/L (3.70-5.30); Sodium 133.3 mmol/L (133-146); pH (venous) 7.33 (7.32-7.43)
[2020-12-30 17:44] LABS: #Lymphocytes 1.4 thou/uL (1.20-3.40); #Monocytes 0.3 thou/uL (0.11-0.59); #Neutrophils 3.9 thou/uL (1.40-6.50); %Eosinophils 0.7 % (0.0-10.0); %Lymphocytes 24.9 % (21.0-51.0); %Monocytes 5.3 % (0.0-10.0); %Neutrophils 69.1 % (42.0-75.0); Hemoglobin 17.2 g/dL (14.0-18.0); MDiff Complete? YES; Mean Corpuscular HGB CONC 35.6 g/dL (32.0-36.0); Mean Corpuscular Hemoglobin 27.3 pg (27.0-31.0); Mean Corpuscular Volume 76.7 fL (78.0-98.0); Mean Platelet Volume 9.1 fL (7.4-10.4); Microcytosis MODERATE=15-30 cells (100X) (0-5/hpf); Platelet Count 121 thou/uL (130-400); Platelet Morphology Comment Appears Adequate; RBC Distribution Width 13.1 % (11.5-14.5); Red Blood Cell (RBC) Count 6.31 mill/uL (4.70-6.10); White Blood Cell (WBC) Count 5.7 thou/uL (4.8-10.8)
[2020-12-30] MEDS ORDERED: HumaLOG 300 UNITS/3 ML VIAL ONE (18:08)
[2020-12-30] MEDS ORDERED: Insulin Regular 300 UNITS/3 ML VIAL ONE (18:08)
[2020-12-30] MEDS ORDERED: Cefepime 2 GM VIAL ONE (19:00)
[2020-12-30] MEDS ORDERED: Vancomycin 1 GM/200 ML BAG ONE (19:46)
[2020-12-30] MEDS ORDERED: Dextrose 5% in Water 1,000 ML IV PRN (20:11)
[2020-12-30] MEDS ORDERED: Dextrose 50% Abboject 50 ML SYRINGE SLOW IVP PRN (20:11)
[2020-12-30] MEDS ORDERED: Acetaminophen 325 MG TAB PO PRN (20:11)
[2020-12-30] MEDS ORDERED: Ondansetron ODT 4 MG TAB PO PRN (20:11)
[2020-12-30] MEDS ORDERED: Morphine 4 MG/ML VIAL SLOW IVP SCH (21:45)
[2020-12-30] MEDS ORDERED: Lidocaine 1% w/Epinephrine 1:100K 20 ML VIAL ONE (21:54)
[2020-12-30] MEDS: HumaLOG 300 UNITS/3 ML VIAL SC PRN (22:19)
[2020-12-30] MEDS ORDERED: hydrOXYzine 25 MG TAB PO SCH (22:25)
[2020-12-30 22:32] VITALS: BMI 34.7
[2020-12-30] MEDS: Nicotine 14 MG PATCH TD SCH (22:32)
[2020-12-30] MEDS ORDERED: Vancomycin 1 GM in Premix Bag 1 BAG IVPB SCH (23:00)
[2020-12-30 23:13] LABS: Amphetamine Not Detected (NotDetected); Barbiturates Screen Not Detected (NotDetected); Benzodiazepine Screen Not Detected (NotDetected); Cocaine Metabolite Screen Not Detected (NotDetected); Medtox Control Line Valid? VALID (VALID); Medtox Reader # READER 1; Methadone Not Detected (NotDetected); Methamphetamine Not Detected (NotDetected); Opiate Screen Not Detected (NotDetected); Oxycodone Screen Not Detected (NotDetected); Phencyclidine (PCP) Not Detected (NotDetected); THC/Cannabinoid Screen Not Detected (NotDetected); Tricyclic Screen Not Detected (NotDetected)
[2020-12-31] MEDS ORDERED: Naloxone HCl 2 MG in Sodium Chloride 0.9% 500 ML IV PRN (00:23)
[2020-12-31] MEDS: Morphine 4 MG/ML VIAL SLOW IVP PRN ×4 (01:34→22:09)
[2020-12-31] MEDS: HumaLOG 300 UNITS/3 ML VIAL SC PRN ×3 (01:43→17:22)
[2020-12-31 02:11] LABS: SARS-CoV-2 PCR by NAA Not Detected (NotDetected)
[2020-12-31] MEDS: Cefepime 2 GM in Sodium Chloride 0.9% 100 ML IVPB SCH ×2 (05:27→18:30)
[2020-12-31] MEDS ORDERED: VANCOMYCIN 2 GRAM/400 ML BAG 2 GM in Premix Bag 1 BAG IVPB SCH (06:00)
[2020-12-31 06:22] LABS: #Eosinphils 0.1 thou/uL (0.0-0.7); #Lymphocytes 1.4 thou/uL (1.20-3.40); #Monocytes 0.3 thou/uL (0.11-0.59); #Neutrophils 4.1 thou/uL (1.40-6.50); %Basophils 0.2 % (0.0-1.0); %Eosinophils 1.2 % (0.0-10.0); %Lymphocytes 23.4 % (21.0-51.0); %Monocytes 5.6 % (0.0-10.0); %Neutrophils 69.6 % (42.0-75.0); Hemoglobin 15.1 g/dL (14.0-18.0); Mean Corpuscular HGB CONC 37.2 g/dL (32.0-36.0); Mean Corpuscular Hemoglobin 28.3 pg (27.0-31.0); Mean Corpuscular Volume 76.3 fL (78.0-98.0); Mean Platelet Volume 8.4 fL (7.4-10.4); Platelet Count 101 thou/uL (130-400); RBC Distribution Width 13.1 % (11.5-14.5); Red Blood Cell (RBC) Count 5.34 mill/uL (4.70-6.10); White Blood Cell (WBC) Count 5.9 thou/uL (4.8-10.8)
[2020-12-31] MEDS: Vancomycin 1.5 GRAM/300 ML BAG 1.5 GM in Premix Bag 1 BAG IVPB SCH ×2 (06:36→15:00)
[2020-12-31 06:39] LABS: Anion Gap 14 mmol/L (10-20); BUN (Urea Nitrogen) 11 mg/dL (8.9-20.6); Calc. Creatinine Clearance 221 mL/min (70-130); Calcium 8.5 mg/dL (7.8-10.44); Carbon Dioxide 18 mmol/L (22-29); Chloride 101 mmol/L (98-107); Glucose 310 mg/dL (70-105); Potassium 4.3 mmol/L (3.5-5.1); Sodium 129 mmol/L (136-145)
[2020-12-31 08:59] LABS: Hemoglobin A1c 11.4 % (4.0-6.0)
[2020-12-31] MEDS ORDERED: HumuLIN 70/30 (300 UNITS/3 ML VIAL) SC SCH ×2 (09:00→22:45)
[2020-12-31] MEDS ORDERED: Bictegrav/Emtricit/Tenofov Ala [Biktarvy 50-200-25 Mg Tablet] PO SCH (09:00)
[2020-12-31] MEDS ORDERED: Lantus 1000 UNITS/10 ML VIAL SC SCH (09:00)
[2020-12-31] MEDS ORDERED: Insulin Glargine 70 UNITS in Pre-Filled Syringe 1 EACH SC SCH (09:00)
[2020-12-31] MEDS ORDERED: HumaLOG 300 UNITS/3 ML VIAL SC SCH ×2 (10:45→21:00)
[2020-12-31] MEDS ORDERED: Acetaminophen 500 MG TAB PO PRN (11:46)
[2020-12-31] MEDS ORDERED: Ibuprofen 200 MG TAB PO PRN (11:46)
[2020-12-31] MEDS: HYDROcodone/Acetaminophen 10/325 mg Tablet PO PRN (15:00)
[2020-12-31] MEDS: HumuLIN 70/30 (300 UNITS/3 ML VIAL) SC SCH ×2 (15:11→15:14)
[2020-12-31] MEDS ORDERED: Morphine 4 MG/ML VIAL ONE (15:27)
[2020-12-31] MEDS ORDERED: Morphine 10 MG/ML VIAL SLOW IVP SCH (15:45)
[2020-12-31] MEDS ORDERED: Morphine 4 MG/ML VIAL SLOW IVP PRN (18:11)
[2020-12-31 21:21] LABS: Vancomycin, Trough 10.9 ug/mL
[2020-12-31] MEDS: Nicotine 14 MG PATCH TD SCH ×2 (22:00→22:08)
[2020-12-31] MEDS: VANCOMYCIN 1.75 GM/350 ML BAG 1.75 GM in Premix Bag 1 BAG IVPB SCH (22:08)
[2021-01-01] MEDS: HYDROcodone/Acetaminophen 10/325 mg Tablet PO PRN ×3 (00:49→22:16)
[2021-01-01] MEDS: Morphine 4 MG/ML VIAL SLOW IVP PRN ×6 (01:39→20:27)
[2021-01-01] MEDS: VANCOMYCIN 1.75 GM/350 ML BAG 1.75 GM in Premix Bag 1 BAG IVPB SCH ×3 (05:29→23:04)
[2021-01-01] MEDS: Cefepime 2 GM in Sodium Chloride 0.9% 100 ML IVPB SCH (05:32)
[2021-01-01] MEDS: HumaLOG 300 UNITS/3 ML VIAL SC PRN ×3 (05:38→16:34)
[2021-01-01 05:41] LABS: #Eosinphils 0.1 thou/uL (0.0-0.7); #Lymphocytes 1.4 thou/uL (1.20-3.40); #Monocytes 0.3 thou/uL (0.11-0.59); #Neutrophils 3.1 thou/uL (1.40-6.50); %Basophils 0.6 % (0.0-1.0); %Eosinophils 1.9 % (0.0-10.0); %Lymphocytes 28.3 % (21.0-51.0); %Monocytes 5.7 % (0.0-10.0); %Neutrophils 63.5 % (42.0-75.0); Hemoglobin 14.8 g/dL (14.0-18.0); Mean Corpuscular HGB CONC 36.9 g/dL (32.0-36.0); Mean Corpuscular Hemoglobin 28.2 pg (27.0-31.0); Mean Corpuscular Volume 76.5 fL (78.0-98.0); Mean Platelet Volume 8.8 fL (7.4-10.4); Platelet Count 114 thou/uL (130-400); RBC Distribution Width 12.9 % (11.5-14.5); Red Blood Cell (RBC) Count 5.26 mill/uL (4.70-6.10)
[2021-01-01 06:02] LABS: Anion Gap 20 mmol/L (10-20); BUN (Urea Nitrogen) 8 mg/dL (8.9-20.6); Calc. Creatinine Clearance 196 mL/min (70-130); Calcium 8.6 mg/dL (7.8-10.44); Carbon Dioxide 17 mmol/L (22-29); Chloride 99 mmol/L (98-107); Glucose 366 mg/dL (70-105); Potassium 4.6 mmol/L (3.5-5.1); Sodium 131 mmol/L (136-145)
[2021-01-01] MEDS: HumuLIN 70/30 (300 UNITS/3 ML VIAL) SC SCH ×3 (08:36→16:35)
[2021-01-01] MEDS: Lisinopril 5 MG TAB PO SCH (09:43)
[2021-01-01 09:44] LABS: Iron 77 ug/dL (65-175); Iron Binding Capacity, Total 263 mcg/dL (261-462)
[2021-01-01 13:37] LABS: %CD4 (Helper/Inducer) 36.1 % (30.8-58.5); Absolute CD4 397 /uL (359-1519); Lymphocytes/Gated Cell Count 1.1 x10E3/uL (0.7-3.1); Total Lymphocyte 22 % (Not Estab.); WBC Total Count 4.9 x10E3/uL (3.4-10.8)
[2021-01-01] MEDS: Nicotine 14 MG PATCH TD SCH (20:28)
[2021-01-01] MEDS ORDERED: HumuLIN 70/30 (300 UNITS/3 ML VIAL) SC SCH ×2 (21:00)
[2021-01-01 21:51] LABS: Vancomycin, Trough 8.2 ug/mL
[2021-01-01] MEDS: VANCOMYCIN 2 GRAM/400 ML BAG 2 GM in Premix Bag 1 BAG IVPB SCH (22:30)
[2021-01-02] MEDS: Morphine 4 MG/ML VIAL SLOW IVP PRN ×6 (00:07→20:48)
[2021-01-02] MEDS: HYDROcodone/Acetaminophen 10/325 mg Tablet PO PRN ×3 (03:14→14:29)
[2021-01-02] MEDS: VANCOMYCIN 2 GRAM/400 ML BAG 2 GM in Premix Bag 1 BAG IVPB SCH ×2 (03:51→10:38)
[2021-01-02] MEDS: HumaLOG 300 UNITS/3 ML VIAL SC PRN ×3 (05:30→16:12)
[2021-01-02 05:55] LABS: #Eosinphils 0.1 thou/uL (0.0-0.7); #Lymphocytes 1.4 thou/uL (1.20-3.40); #Monocytes 0.2 thou/uL (0.11-0.59); #Neutrophils 2.3 thou/uL (1.40-6.50); %Basophils 0.4 % (0.0-1.0); %Eosinophils 1.4 % (0.0-10.0); %Lymphocytes 34.6 % (21.0-51.0); %Monocytes 5.6 % (0.0-10.0); Hemoglobin 14.2 g/dL (14.0-18.0); Mean Corpuscular HGB CONC 36.3 g/dL (32.0-36.0); Mean Corpuscular Hemoglobin 27.9 pg (27.0-31.0); Mean Platelet Volume 7.7 fL (7.4-10.4); Platelet Count 108 thou/uL (130-400); RBC Distribution Width 12.7 % (11.5-14.5); Red Blood Cell (RBC) Count 5.09 mill/uL (4.70-6.10); White Blood Cell (WBC) Count 3.9 thou/uL (4.8-10.8)
[2021-01-02] MEDS ORDERED: Polyethylene Glycol 3350 17 GM Packet PO PRN (06:09)
[2021-01-02 06:10] LABS: Anion Gap 15 mmol/L (10-20); BUN (Urea Nitrogen) 7 mg/dL (8.9-20.6); Calc. Creatinine Clearance 243 mL/min (70-130); Calcium 8.5 mg/dL (7.8-10.44); Carbon Dioxide 24 mmol/L (22-29); Chloride 100 mmol/L (98-107); Glucose 341 mg/dL (70-105); Potassium 3.8 mmol/L (3.5-5.1); Sodium 135 mmol/L (136-145)
[2021-01-02] MEDS: Lisinopril 5 MG TAB PO SCH (08:10)
[2021-01-02] MEDS: HumuLIN 70/30 (300 UNITS/3 ML VIAL) SC SCH ×3 (08:10→17:51)
[2021-01-02] MEDS ORDERED: HumuLIN 70/30 (300 UNITS/3 ML VIAL) SC SCH (08:20)
[2021-01-02] MEDS: Docusate 100 MG CAP PO SCH ×2 (09:26→20:46)
[2021-01-02] MEDS ORDERED: Calcium Carbonate 500 MG ChewTAB PO PRN (11:42)
[2021-01-02] MEDS ORDERED: Lactated Ringer's 1,000 ML IV SCH (11:45)
[2021-01-02] MEDS ORDERED: Iopamidol-370 76% 500 ML 1 ML ONE (13:35)
[2021-01-02 15:27] LABS: Vancomycin, Trough 38.3 ug/mL
[2021-01-02] MEDS ORDERED: Melatonin 3 MG TAB PO PRN (19:00)
[2021-01-02] MEDS: Doxycycline 100 MG CAP PO SCH (20:46)
[2021-01-03] MEDS: HYDROcodone/Acetaminophen 10/325 mg Tablet PO PRN ×2 (01:09→08:21)
[2021-01-03] MEDS: Morphine 4 MG/ML VIAL SLOW IVP PRN (02:50)
[2021-01-03 06:24] LABS: #Eosinphils 0.1 thou/uL (0.0-0.7); #Lymphocytes 1.1 thou/uL (1.20-3.40); #Monocytes 0.2 thou/uL (0.11-0.59); #Neutrophils 2.1 thou/uL (1.40-6.50); %Basophils 0.5 % (0.0-1.0); %Lymphocytes 31.2 % (21.0-51.0); %Neutrophils 58.3 % (42.0-75.0); Hemoglobin 13.8 g/dL (14.0-18.0); Mean Corpuscular HGB CONC 35.2 g/dL (32.0-36.0); Mean Corpuscular Hemoglobin 27.3 pg (27.0-31.0); Mean Corpuscular Volume 77.4 fL (78.0-98.0); Mean Platelet Volume 7.9 fL (7.4-10.4); Platelet Count 102 thou/uL (130-400); RBC Distribution Width 12.7 % (11.5-14.5); Red Blood Cell (RBC) Count 5.05 mill/uL (4.70-6.10); White Blood Cell (WBC) Count 3.5 thou/uL (4.8-10.8)
[2021-01-03 06:25] LABS: Anion Gap 16 mmol/L (10-20); BUN (Urea Nitrogen) 8 mg/dL (8.9-20.6); Calc. Creatinine Clearance 256 mL/min (70-130); Calcium 8.8 mg/dL (7.8-10.44); Carbon Dioxide 22 mmol/L (22-29); Chloride 103 mmol/L (98-107); Glucose 239 mg/dL (70-105); Potassium 4.1 mmol/L (3.5-5.1); Sodium 137 mmol/L (136-145)
[2021-01-03] MEDS: HumuLIN 70/30 (300 UNITS/3 ML VIAL) SC SCH (08:14)
[2021-01-03] MEDS: HumaLOG 300 UNITS/3 ML VIAL SC PRN ×2 (08:16→11:54)
[2021-01-03] MEDS: Lisinopril 5 MG TAB PO SCH (08:17)
[2021-01-03] MEDS: Doxycycline 100 MG CAP PO SCH (08:17)
[2021-01-03] MEDS: Docusate 100 MG CAP PO SCH (08:17)
[2021-01-03] MEDS ORDERED: Lisinopril 5 MG TAB PO SCH ×2 (09:00→10:30)
[2021-01-03] MEDS ORDERED: HumuLIN 70/30 (300 UNITS/3 ML VIAL) SC SCH ×2 (11:30→21:00)
[2021-01-03 12:14] VITALS: BP 124/86; TEMP 97.8
[2021-01-04 11:13] LABS: HIV-1 Quantitative, RNA PCR <20 copies/mL (.)
== END 2021-01-03 12:17 | disposition home or self-care (01) | DRG 987 ==
LOC: ERS 15:38 → T4-A 18:06
PROVIDERS: ADMIT Student in an Organized Health Care Education/Training Program; ATTEND Family Medicine
PROC: 0XJ53ZZ Inspection of Left Axilla, Percutaneous Approach (ICD-10-PCS; principal; 2020-12-30)
PROC: 0J9F0ZZ Drainage of Left Upper Arm Subcutaneous Tissue and Fascia, Open Approach (ICD-10-PCS; 2020-12-31)
DX: E11.628 Type 2 diabetes mellitus with other skin complications (principal); I26.99 Other pulmonary embolism without acute cor pulmonale; L02.412 Cutaneous abscess of left axilla; B20 Human immunodeficiency virus [HIV] disease; L03.112 Cellulitis of left axilla; E10.65 Type 1 diabetes mellitus with hyperglycemia; E78.89 Other lipoprotein metabolism disorders; I10 Essential (primary) hypertension; R16.1 Splenomegaly, not elsewhere classified; D50.9 Iron deficiency anemia, unspecified; Z20.822 Contact with and (suspected) exposure to COVID-19
CPT/HCPCS: 36415; 36416; 71045; 71260; 80048; 80053; 80202; 80306; 81003; 81015; 82010; 82728; 82805; 83036; 83540; 83550; 83605; 84145; 84484; 85025; 85048; 86361; 87040; 87070; 87077; 87086; 87186; 87205; 87536; 87635; 93005; 93010; 96365; 96375; 96376; J0692; J1815; J2270; J2405; J3370; J3490; Q0162; Q9967; U0003; U0005

== ENCOUNTER 2021-01-24 21:29 | Emergency (ER) | payer BC, SELFPAY ==
[2021-01-24] MEDS ORDERED: Morphine 4 MG/ML VIAL ONE (22:33)
[2021-01-24] MEDS ORDERED: Ondansetron PF 4 MG/2 ML Vial ONE (22:34)
[2021-01-24] MEDS ORDERED: Cefepime 2 GM VIAL ONE (22:34)
[2021-01-24 22:43] LABS: #Lymphocytes 1.2 thou/uL (1.20-3.40); #Monocytes 0.2 thou/uL (0.11-0.59); #Neutrophils 2.7 thou/uL (1.40-6.50); %Basophils 0.1 % (0.0-1.0); %Eosinophils 1.2 % (0.0-10.0); %Monocytes 5.3 % (0.0-10.0); %Neutrophils 65.5 % (42.0-75.0); Hemoglobin 15.8 g/dL (14.0-18.0); Mean Corpuscular HGB CONC 36.1 g/dL (32.0-36.0); Mean Corpuscular Hemoglobin 27.5 pg (27.0-31.0); Mean Corpuscular Volume 76.1 fL (78.0-98.0); Mean Platelet Volume 9.4 fL (7.4-10.4); Platelet Count 122 thou/uL (130-400); RBC Distribution Width 13.4 % (11.5-14.5); Red Blood Cell (RBC) Count 5.74 mill/uL (4.70-6.10); White Blood Cell (WBC) Count 4.1 thou/uL (4.8-10.8)
[2021-01-24 22:45] LABS: Albumin 4.2 g/dL (3.5-5.0); Alkaline Phosphatase 113 U/L (40-110); Calc. Creatinine Clearance 0 mL/min (70-130)
[2021-01-24] MEDS ORDERED: Ketorolac Tromethamine 30 MG/ML VIAL ONE (23:18)
[2021-01-24] MEDS ORDERED: HYDROcodone/Acetaminophen 5/325 mg Tablet ONE (23:38)
[2021-01-25] MEDS ORDERED: Clindamycin/D5W 900 mg/50 ml Premix Bag ONE (00:10)
[2021-01-25] MEDS ORDERED: Insulin Regular 300 UNITS/3 ML VIAL ONE ×2 (00:10→09:20)
[2021-01-25 00:17] LABS: Magnesium 1.8 mg/dL (1.6-2.6)
[2021-01-25 00:18] LABS: Potassium 5.3 mmol/L (3.5-5.1); Sodium 139 mmol/L (136-145)
[2021-01-25 00:19] LABS: Carbon Dioxide 22 mmol/L (22-29); Chloride 102 mmol/L (98-107)
[2021-01-25 00:20] LABS: Anion Gap 20 mmol/L (10-20); BUN (Urea Nitrogen) 22 mg/dL (8.9-20.6)
[2021-01-25 00:21] LABS: Glucose 570 mg/dL (70-105)
[2021-01-25 00:22] LABS: Bilirubin, Total 0.5 mg/dL (0.2-1.2); Calcium 9.4 mg/dL (7.8-10.44); Protein, Total 7.2 g/dL (6.0-8.3)
[2021-01-25 00:34] LABS: AST (SGOT) 25 U/L (5-34)
[2021-01-25 00:35] LABS: ALT (SGPT) 34 U/L (8-55)
[2021-01-25] MEDS ORDERED: Morphine 4 MG/ML VIAL ONE ×3 (01:20→06:09)
[2021-01-25] MEDS: Morphine 4 MG/ML VIAL SLOW IVP PRN ×3 (01:25→06:20)
[2021-01-25 02:45] LABS: Bilirubin Negative (Negative); Blood, Urine Negative (Negative); Clarity Clear (Clear); Glucose, Urine (Dipstick) Greater than 1000 mg/dL (Negative); Ketone, Urine Negative (Negative); Leukocyte Negative Leu/uL (Negative); Nitrite Negative (Negative); Protein, Urine (Dipstick) Negative (Neg-Trace); Specific Gravity, Urine 1.031 (1.002-1.036); Urobilinogen Normal mg/dL (Less than 2); pH, Urine 5.5 (5.0-9.0)
[2021-01-25] MEDS ORDERED: Ketorolac Tromethamine 30 MG/ML VIAL ONE (02:59)
[2021-01-25] MEDS ORDERED: Ketorolac Tromethamine 30 MG/ML VIAL IVP PRN (03:07)
[2021-01-25] MEDS ORDERED: Piperacillin/Tazobactam 4.5 GM VIAL ONE (03:08)
[2021-01-25] MEDS ORDERED: Sodium Chloride 0.9% 1,000 ML IV SCH (03:15)
[2021-01-25 03:38] LABS: Lactic Acid 1.8 mmol/L (0.5-2.2)
[2021-01-25] MEDS ORDERED: HumaLOG 300 UNITS/3 ML VIAL ONE (03:48)
[2021-01-25] MEDS ORDERED: Dextrose 50% Abboject 50 ML SYRINGE IVP PRN (04:00)
[2021-01-25] MEDS ORDERED: HumaLOG 300 UNITS/3 ML VIAL SC PRN ×2 (04:00→07:04)
[2021-01-25] MEDS ORDERED: Dextrose 5% in Water 1,000 ML IV PRN ×2 (04:00→07:04)
[2021-01-25] MEDS ORDERED: Piperacillin/Tazobactam 4.5 GM in Sodium Chloride 0.9% 100 ML IVPB SCH (04:00)
[2021-01-25 04:42] LABS: SARS-CoV-2 PCR by NAA Not Detected (NotDetected)
[2021-01-25] MEDS ORDERED: Dextrose 50% Abboject 50 ML SYRINGE SLOW IVP PRN (07:04)
[2021-01-25 07:55] VITALS: BP 116/60; TEMP 97.9
[2021-01-25] MEDS ORDERED: Piperacillin/Tazobactam 3.375 GM VIAL ONE (08:37)
[2021-01-25] MEDS ORDERED: Sodium Chloride 0.9% 100 ML ONE (08:38)
[2021-01-25] MEDS ORDERED: EPINEPHrine 1 MG/ML AMP ONE (09:33)
[2021-01-25] MEDS ORDERED: Bupivacaine PF 0.5% 30 ML VIAL ONE (09:33)
[2021-01-25] MEDS ORDERED: Fentanyl 100 MCG/2 ML VIAL ONE ×2 (09:33→11:53)
[2021-01-25] MEDS ORDERED: Midazolam HCl 2 mg/2 ml Vial ONE (09:47)
[2021-01-25] MEDS ORDERED: PROPOFOL 200 MG/20 ML VIAL ONE (09:57)
[2021-01-25] MEDS ORDERED: Lidocaine 1% PF 5 ML VIAL ONE (09:57)
[2021-01-25] MEDS ORDERED: Ondansetron PF 4 MG/2 ML Vial ONE (11:58)
[2021-01-25] MEDS ORDERED: HYDROcodone/Acetaminophen 5/325 mg Tablet ONE (13:24)
[2021-01-25] MEDS ORDERED: HYDROcodone/Acetaminophen 5/325 mg Tablet PO PRN ×2 (14:14)
[2021-01-25] MEDS ORDERED: Ondansetron PF 4 MG/2 ML Vial IVP SCH (14:15)
[2021-01-25] MEDS ORDERED: Promethazine HCl 6.25 MG in Sodium Chloride 0.9% 50 ML IVPB PRN (14:17)
[2021-01-25] MEDS ORDERED: Morphine 2 MG/ML VIAL SLOW IVP PRN (14:20)
== END 2021-01-25 08:00 | disposition short-term general hospital (02) ==
LOC: ERS 21:29 → ERHOLD 01-25 00:45 → UNDOADMIN 01-25 00:54 → ERHOLD 01-25 00:54 → ERS 01-25 08:00 → UNDODISIN 01-25 13:47 → ERS 01-25 13:47
DX: K61.1 Rectal abscess (principal); Z20.822 Contact with and (suspected) exposure to COVID-19; Z21 Asymptomatic human immunodeficiency virus [HIV] infection status; E10.9 Type 1 diabetes mellitus without complications; E66.9 Obesity, unspecified; F17.220 Nicotine dependence, chewing tobacco, uncomplicated; Z79.899 Other long term (current) drug therapy
CPT/HCPCS: 36415; 36416; 72192; 74177; 80053; 81003; 82010; 83605; 83690; 83735; 85025; 87040; 87635; 96365; 96367; 96375; J0171; J0692; J1815; J1885; J2250; J2270; J2405; J2543; J2704; J3010; J3490; S0020; U0003; U0005

== ENCOUNTER 2021-01-28 15:19 | Emergency (ER) | payer BC, SELFPAY ==
[2021-01-28] MEDS ORDERED: Morphine 4 MG/ML VIAL ONE (16:40)
[2021-01-28 16:48] LABS: #Eosinphils 0.1 thou/uL (0.0-0.7); #Lymphocytes 0.9 thou/uL (1.20-3.40); #Monocytes 0.2 thou/uL (0.11-0.59); #Neutrophils 2.6 thou/uL (1.40-6.50); %Basophils 0.2 % (0.0-1.0); %Eosinophils 1.5 % (0.0-10.0); %Lymphocytes 22.7 % (21.0-51.0); %Monocytes 6.4 % (0.0-10.0); %Neutrophils 69.1 % (42.0-75.0); Hemoglobin 13.9 g/dL (14.0-18.0); Mean Corpuscular HGB CONC 33.8 g/dL (32.0-36.0); Mean Corpuscular Hemoglobin 26.1 pg (27.0-31.0); Mean Corpuscular Volume 77.1 fL (78.0-98.0); Mean Platelet Volume 8.2 fL (7.4-10.4); Platelet Count 95 thou/uL (130-400); Red Blood Cell (RBC) Count 5.32 mill/uL (4.70-6.10); White Blood Cell (WBC) Count 3.7 thou/uL (4.8-10.8)
[2021-01-28 17:09] LABS: ALT (SGPT) 26 U/L (8-55); AST (SGOT) 16 U/L (5-34); Albumin 3.8 g/dL (3.5-5.0); Alkaline Phosphatase 84 U/L (40-110); Anion Gap 12 mmol/L (10-20); BUN (Urea Nitrogen) 12 mg/dL (8.9-20.6); Bilirubin, Total 0.7 mg/dL (0.2-1.2); Calc. Creatinine Clearance 0 mL/min (70-130); Calcium 8.9 mg/dL (7.8-10.44); Carbon Dioxide 29 mmol/L (22-29); Chloride 98 mmol/L (98-107); Globulin 2.9 g/dL (2.4-3.5); Glucose 358 mg/dL (70-105); Protein, Total 6.7 g/dL (6.0-8.3); Sodium 135 mmol/L (136-145)
[2021-01-28] MEDS ORDERED: Ketorolac Tromethamine 30 MG/ML VIAL ONE (18:48)
[2021-01-28] MEDS ORDERED: Acetaminophen 500 MG TAB ONE (18:48)
== END 2021-01-28 20:06 | disposition home or self-care (01) ==
LOC: ERS 15:19
DX: K62.89 Other specified diseases of anus and rectum (principal); E10.9 Type 1 diabetes mellitus without complications; Z71.7 Human immunodeficiency virus [HIV] counseling; E66.9 Obesity, unspecified; F17.220 Nicotine dependence, chewing tobacco, uncomplicated; Z79.4 Long term (current) use of insulin
CPT/HCPCS: 36415; 72193; 80053; 82010; 85025; 96374; 96375; J1885; J2270; Q9967

== ENCOUNTER 2021-02-05 17:20 | Emergency (ER) | payer OTHER, SELFPAY ==
[2021-02-05] MEDS ORDERED: HYDROcodone/Acetaminophen 10/325 mg Tablet ONE (17:40)
== END 2021-02-05 18:04 | disposition home or self-care (01) ==
LOC: ERS 17:20
DX: K61.0 Anal abscess (principal); E10.9 Type 1 diabetes mellitus without complications; B20 Human immunodeficiency virus [HIV] disease; E66.9 Obesity, unspecified; F17.220 Nicotine dependence, chewing tobacco, uncomplicated; Z79.899 Other long term (current) drug therapy
CPT/HCPCS: 99283

== ENCOUNTER 2021-02-06 02:33 | Emergency (ER) | payer OTHER, SELFPAY ==
[2021-02-06] MEDS ORDERED: HYDROcodone/Acetaminophen 10/325 mg Tablet ONE (03:05)
[2021-02-06] MEDS ORDERED: Ketorolac Tromethamine 30 MG/ML VIAL ONE (03:05)
== END 2021-02-06 03:13 | disposition home or self-care (01) ==
LOC: ERS 02:33
DX: G89.18 Other acute postprocedural pain (principal); K62.89 Other specified diseases of anus and rectum; E10.9 Type 1 diabetes mellitus without complications; Z21 Asymptomatic human immunodeficiency virus [HIV] infection status; E66.9 Obesity, unspecified; F17.220 Nicotine dependence, chewing tobacco, uncomplicated
CPT/HCPCS: 96372; 99283; J1885

== ENCOUNTER 2021-02-07 15:18 | Emergency (ER) | payer OTHER, SELFPAY | END 2021-02-07 15:42 | disposition left against medical advice (07) | LOC: ERS 15:18 | DX: Z53.21 Procedure and treatment not carried out due to patient leaving prior to being seen by health care provider (principal) ==

== ENCOUNTER 2021-03-24 11:08 | Emergency (ER) | payer BC ==
[2021-03-24 12:04] LABS: #Lymphocytes 1.1 thou/uL (1.20-3.40); #Monocytes 0.3 thou/uL (0.11-0.59); #Neutrophils 3.9 thou/uL (1.40-6.50); %Eosinophils 0.5 % (0.0-10.0); %Lymphocytes 20.7 % (21.0-51.0); %Monocytes 4.8 % (0.0-10.0); %Neutrophils 74.1 % (42.0-75.0); Mean Corpuscular Hemoglobin 28.1 pg (27.0-31.0); Mean Corpuscular Volume 75.9 fL (78.0-98.0); Mean Platelet Volume 8.2 fL (7.4-10.4); Platelet Count 155 thou/uL (130-400); White Blood Cell (WBC) Count 5.2 thou/uL (4.8-10.8)
[2021-03-24 12:50] LABS: ALT (SGPT) 41 U/L (8-55)
[2021-03-24 12:54] LABS: Albumin 4.5 g/dL (3.5-5.0); Alkaline Phosphatase 100 U/L (40-110); Anion Gap 15 mmol/L (10-20); BUN (Urea Nitrogen) 14 mg/dL (8.9-20.6); Bilirubin, Total 0.7 mg/dL (0.2-1.2); Calc. Creatinine Clearance 0 mL/min (70-130); Calcium 9.6 mg/dL (7.8-10.44); Carbon Dioxide 25 mmol/L (22-29); Chloride 100 mmol/L (98-107); Glucose 188 mg/dL (70-105); Lipase 94 U/L (8-78); Potassium 4.6 mmol/L (3.5-5.1); Protein, Total 10.5 g/dL (6.0-8.3); Sodium 135 mmol/L (136-145)
== END 2021-03-24 12:50 | disposition left against medical advice (07) ==
LOC: ERS 11:08
DX: Z53.21 Procedure and treatment not carried out due to patient leaving prior to being seen by health care provider (principal)
CPT/HCPCS: 36415; 36416; 71045; 80053; 83690; 84484; 85025; 93005; 94760

== ENCOUNTER 2021-08-01 15:15 | Inpatient (IN) | payer OTHER, BC ==
[2021-08-01 16:01] LABS: #Lymphocytes 2.4 thou/uL (1.20-3.40); #Monocytes 0.2 thou/uL (0.11-0.59); #Neutrophils 3.6 thou/uL (1.40-6.50); %Basophils 0.7 % (0.0-1.0); %Eosinophils 0.6 % (0.0-10.0); %Lymphocytes 37.9 % (21.0-51.0); %Monocytes 3.8 % (0.0-10.0); Hemoglobin 18.6 g/dL (14.0-18.0); Mean Corpuscular HGB CONC 38.5 g/dL (32.0-36.0); Mean Corpuscular Hemoglobin 28.5 pg (27.0-31.0); Mean Platelet Volume 10.5 fL (7.4-10.4); Platelet Count 274 thou/uL (130-400); RBC Distribution Width 14.6 % (11.5-14.5); Red Blood Cell (RBC) Count 6.54 mill/uL (4.70-6.10); White Blood Cell (WBC) Count 6.4 thou/uL (4.8-10.8)
[2021-08-01 16:04] LABS: INR-International Normal Ratio 0.9; Prothrombin Time 12.5 sec (12.0-14.7)
[2021-08-01 16:05] LABS: PTT 23.5 sec (22.9-36.1)
[2021-08-01] MEDS ORDERED: Fentanyl 100 MCG/2 ML VIAL ONE (16:08)
[2021-08-01] MEDS ORDERED: Morphine 4 MG/ML VIAL ONE (16:09)
[2021-08-01] MEDS ORDERED: Ketorolac Tromethamine 30 MG/ML VIAL ONE (16:09)
[2021-08-01] MEDS ORDERED: Boostrix 0.5 ML (Tdap) VIAL ONE (16:25)
[2021-08-01] MEDS ORDERED: ceFAZolin 2 GM/DEX 5% 100 ML BAG ONE (16:26)
[2021-08-01] MEDS ORDERED: CEFAZOLIN 1 GM VIAL ONE (16:27)
[2021-08-01 16:29] LABS: MDiff Complete? YES; Microcytosis SLIGHT = 6-15 cells (100X) (0-5/hpf); Platelet Morphology Comment Appears Adequate
[2021-08-01] MEDS ORDERED: HYDROmorphone 0.5 MG/0.5 ML SYRINGE ONE (16:31)
[2021-08-01 16:35] LABS: ALT (SGPT) 84 U/L (8-55); CK (CPK) 55 U/L (30-200)
[2021-08-01] MEDS ORDERED: Dextrose 5% in Water 1,000 ML IV PRN (16:43)
[2021-08-01] MEDS ORDERED: Dextrose 50% Abboject 50 ML SYRINGE SLOW IVP PRN (16:43)
[2021-08-01] MEDS ORDERED: Ondansetron PF 4 MG/2 ML Vial ONE (17:00)
[2021-08-01] MEDS ORDERED: Bacitracin 1 PK ONE (17:08)
[2021-08-01] MEDS ORDERED: Silver Sulfadiazine 50 GM TUBE ONE (17:10)
[2021-08-01] MEDS ORDERED: traMADol HCl 50 MG TAB PO PRN (17:40)
[2021-08-01] MEDS ORDERED: Cyclobenzaprine 10 MG TAB PO PRN (17:40)
[2021-08-01 18:11] LABS: Magnesium 1.7 mg/dL (1.6-2.6); Phosphorus 2.6 mg/dL (2.3-4.7)
[2021-08-01 18:12] LABS: AST (SGOT) 89 U/L (5-34); Alkaline Phosphatase 94 U/L (40-110); Anion Gap 24 mmol/L (10-20); BUN (Urea Nitrogen) 14 mg/dL (8.9-20.6); Bilirubin, Total 0.6 mg/dL (0.2-1.2); Calc. Creatinine Clearance 0 mL/min (70-130); Calcium 9.1 mg/dL (7.8-10.44); Carbon Dioxide 13 mmol/L (22-29); Chloride 101 mmol/L (98-107); Globulin 3.9 g/dL (2.4-3.5); Glucose 482 mg/dL (70-105); Potassium 5.3 mmol/L (3.5-5.1); Protein, Total 7.9 g/dL (6.0-8.3); Sodium 133 mmol/L (136-145)
[2021-08-01] MEDS ORDERED: Ibuprofen 200 MG TAB PO PRN (18:21)
[2021-08-01] MEDS ORDERED: traMADol HCl 50 MG TAB PO SCH (18:30)
[2021-08-01] MEDS: Morphine 4 MG/ML VIAL SLOW IVP PRN ×2 (18:43→22:10)
[2021-08-01] MEDS: Sodium Chloride 0.9% 1,000 ML IV SCH (19:00)
[2021-08-01] MEDS: Acetaminophen 500 MG TAB PO SCH (19:32)
[2021-08-01] MEDS: HumaLOG 300 UNITS/3 ML VIAL SC PRN (19:41)
[2021-08-01] MEDS: Famotidine/PF 20 mg/2ml Vial SLOW IVP SCH (20:29)
[2021-08-01] MEDS: Silver Sulfadiazine 50 GM TUBE TOP SCH (20:31)
[2021-08-01] MEDS ORDERED: Lantus 1000 UNITS/10 ML VIAL SC SCH (21:00)
[2021-08-01 21:23] LABS: SARS-CoV-2 NAA Rapid Test DETECTED (NotDetected)
[2021-08-01] MEDS ORDERED: ceFAZolin Sodium/D5W 2 GM in Premix Bag 1 BAG IVPB SCH (21:30)
[2021-08-01] MEDS: Senokot S 8.6-50 MG TAB PO SCH (21:48)
[2021-08-01 23:42] LABS: SARS-CoV-2 NAA Rapid Test Not Detected (NotDetected)
[2021-08-02] MEDS: Acetaminophen 500 MG TAB PO SCH ×2 (00:18→06:49)
[2021-08-02] MEDS: Morphine 4 MG/ML VIAL SLOW IVP PRN ×6 (00:19→21:22)
[2021-08-02] MEDS: Dexamethasone 4 MG TAB PO SCH ×4 (00:20→21:22)
[2021-08-02] MEDS: traMADol HCl 50 MG TAB PO SCH ×2 (00:20→06:48)
[2021-08-02] MEDS: HumaLOG 300 UNITS/3 ML VIAL SC PRN ×3 (00:55→11:16)
[2021-08-02] MEDS: Ondansetron PF 4 MG/2 ML Vial IVP PRN ×2 (02:58→12:00)
[2021-08-02 03:29] LABS: Amphetamine Not Detected (NotDetected); Barbiturates Screen Not Detected (NotDetected); Benzodiazepine Screen Not Detected (NotDetected); Cocaine Metabolite Screen Not Detected (NotDetected); Methadone Not Detected (NotDetected); Methamphetamine Not Detected (NotDetected); Opiate Screen Detected (NotDetected); Oxycodone Screen Not Detected (NotDetected); Phencyclidine (PCP) Not Detected (NotDetected); THC/Cannabinoid Screen Not Detected (NotDetected); Tricyclic Screen Not Detected (NotDetected)
[2021-08-02] MEDS: Sodium Chloride 0.9% 1,000 ML IV SCH ×2 (04:13→12:36)
[2021-08-02] MEDS: ceFAZolin Sodium/D5W 2 GM in Premix Bag 1 BAG IVPB SCH ×3 (06:02→21:22)
[2021-08-02 07:05] LABS: ALT (SGPT) 52 U/L (8-55); AST (SGOT) 29 U/L (5-34); Albumin 4.1 g/dL (3.5-5.0); Alkaline Phosphatase 83 U/L (40-110); Anion Gap 16 mmol/L (10-20); BUN (Urea Nitrogen) 12 mg/dL (8.9-20.6); CK (CPK) 198 U/L (30-200); Calc. Creatinine Clearance 173 mL/min (70-130); Calcium 9.1 mg/dL (7.8-10.44); Carbon Dioxide 22 mmol/L (22-29); Chloride 102 mmol/L (98-107); Globulin 2.9 g/dL (2.4-3.5); Glucose 333 mg/dL (70-105); Magnesium 1.8 mg/dL (1.6-2.6); Potassium 4.8 mmol/L (3.5-5.1); Sodium 135 mmol/L (136-145)
[2021-08-02 07:20] LABS: Phosphorus 3.6 mg/dL (2.3-4.7)
[2021-08-02] MEDS ORDERED: Promethazine HCl 25 MG in Sodium Chloride 0.9% 50 ML IVPB SCH (08:00)
[2021-08-02 09:00] LABS: Hemoglobin 15.9 g/dL (14.0-18.0); Mean Corpuscular HGB CONC 34.9 g/dL (32.0-36.0); Mean Corpuscular Hemoglobin 26.6 pg (27.0-31.0); Mean Corpuscular Volume 76.3 fL (78.0-98.0); Mean Platelet Volume 7.9 fL (7.4-10.4); Platelet Count 145 thou/uL (130-400); RBC Distribution Width 13.1 % (11.5-14.5); Red Blood Cell (RBC) Count 5.98 mill/uL (4.70-6.10); White Blood Cell (WBC) Count 6.6 thou/uL (4.8-10.8)
[2021-08-02] MEDS ORDERED: Lantus 1000 UNITS/10 ML VIAL SC SCH ×2 (09:00→21:00)
[2021-08-02] MEDS ORDERED: Bictegrav/Emtricit/Tenofov Ala [Biktarvy 50-200-25 Mg Tablet PO SCH (09:00)
[2021-08-02] MEDS ORDERED: cloNIDine 0.2 MG TAB PO SCH (09:00)
[2021-08-02] MEDS ORDERED: Lisinopril 5 MG TAB PO SCH (09:00)
[2021-08-02] MEDS: Famotidine/PF 20 mg/2ml Vial SLOW IVP SCH ×2 (09:20→21:23)
[2021-08-02] MEDS: Bacitracin Zinc Ointment 30 gm TUBE TOP SCH (09:21)
[2021-08-02] MEDS: Silver Sulfadiazine 50 GM TUBE TOP SCH (09:22)
[2021-08-02] MEDS: Senokot S 8.6-50 MG TAB PO SCH ×2 (09:22→21:21)
[2021-08-02] MEDS: Metamucil PACK PER TUBE SCH (09:22)
[2021-08-02] MEDS ORDERED: hydrALAZINE 20 MG/ML VIAL SLOW IVP PRN (09:35)
[2021-08-02 09:39] LABS: Band 13 % (5-11); Lymphocytes 10 % (21-51); MDiff Complete? YES; Microcytosis SLIGHT = 6-15 cells (100X) (0-5/hpf); Monocytes 4 % (0-10); Neutrophil 69 % (42-75); Platelet Morphology Comment Appears Adequate; Polychromasia SLIGHT = 2-3 cells (100X) (0-2/hpf); Reactive Lymphocytes 4 % (0-10)
[2021-08-02] MEDS ORDERED: Acetaminophen/Codeine 30-300mg Tablet PO PRN (09:39)
[2021-08-02] MEDS ORDERED: Lisinopril 10 MG TAB PO SCH (09:45)
[2021-08-02] MEDS: Acetaminophen 325 MG TAB PO SCH ×2 (11:16→18:44)
[2021-08-02] MEDS: cloNIDine 0.1 MG TAB PO SCH ×2 (11:17→18:47)
[2021-08-02] MEDS ORDERED: HumaLOG 300 UNITS/3 ML VIAL SC PRN (11:30)
[2021-08-02] MEDS: Scopolamine 1.5 mg/72 hour Patch TD SCH (11:30)
[2021-08-02] MEDS: HumaLOG 300 UNITS/3 ML VIAL SC SCH ×2 (11:32→18:52)
[2021-08-02] MEDS ORDERED: Acetaminophen/Codeine 30-300mg Tablet PO SCH (12:00)
[2021-08-02] MEDS: Acetaminophen/Codeine 30-300mg Tablet PO SCH ×2 (12:35→18:45)
[2021-08-02] MEDS: Gabapentin 300 MG CAP PO SCH ×2 (14:52→21:21)
[2021-08-03] MEDS: cloNIDine 0.1 MG TAB PO SCH ×4 (00:03→18:15)
[2021-08-03] MEDS: Acetaminophen 325 MG TAB PO SCH ×4 (00:04→18:16)
[2021-08-03] MEDS: Acetaminophen/Codeine 30-300mg Tablet PO SCH ×4 (00:05→18:16)
[2021-08-03] MEDS: HumaLOG 300 UNITS/3 ML VIAL SC PRN ×6 (00:06→18:17)
[2021-08-03] MEDS: Morphine 4 MG/ML VIAL SLOW IVP PRN ×2 (02:08→06:11)
[2021-08-03] MEDS: Bacitracin Zinc Ointment 30 gm TUBE TOP SCH ×3 (03:03→22:13)
[2021-08-03] MEDS: Silver Sulfadiazine 50 GM TUBE TOP SCH ×3 (03:04→22:12)
[2021-08-03 03:27] LABS: #Lymphocytes 0.8 thou/uL (1.20-3.40); #Monocytes 0.4 thou/uL (0.11-0.59); %Basophils 0.2 % (0.0-1.0); %Eosinophils 0.2 % (0.0-10.0); %Lymphocytes 10.8 % (21.0-51.0); %Neutrophils 82.9 % (42.0-75.0); Hemoglobin 15.4 g/dL (14.0-18.0); Mean Corpuscular HGB CONC 33.7 g/dL (32.0-36.0); Mean Corpuscular Hemoglobin 25.9 pg (27.0-31.0); Mean Corpuscular Volume 76.6 fL (78.0-98.0); Mean Platelet Volume 8.2 fL (7.4-10.4); Platelet Count 159 thou/uL (130-400); RBC Distribution Width 13.2 % (11.5-14.5); Red Blood Cell (RBC) Count 5.95 mill/uL (4.70-6.10); White Blood Cell (WBC) Count 7.2 thou/uL (4.8-10.8)
[2021-08-03 03:45] LABS: Anion Gap 16 mmol/L (10-20); BUN (Urea Nitrogen) 10 mg/dL (8.9-20.6); Calc. Creatinine Clearance 190 mL/min (70-130); Calcium 9.3 mg/dL (7.8-10.44); Carbon Dioxide 27 mmol/L (22-29); Chloride 101 mmol/L (98-107); Glucose 381 mg/dL (70-105); Magnesium 2.2 mg/dL (1.6-2.6); Potassium 4.5 mmol/L (3.5-5.1); Sodium 139 mmol/L (136-145)
[2021-08-03] MEDS: ceFAZolin Sodium/D5W 2 GM in Premix Bag 1 BAG IVPB SCH (06:10)
[2021-08-03] MEDS: Ondansetron PF 4 MG/2 ML Vial IVP PRN ×2 (06:11→18:15)
[2021-08-03 07:22] LABS: Hemoglobin A1c 11.5 % (4.0-6.0)
[2021-08-03] MEDS: Dexamethasone 4 MG TAB PO SCH (07:22)
[2021-08-03] MEDS ORDERED: PHOS-NAK 1 PKT PACK PO SCH (09:00)
[2021-08-03] MEDS: HumaLOG 300 UNITS/3 ML VIAL SC SCH (09:08)
[2021-08-03] MEDS: Gabapentin 300 MG CAP PO SCH ×3 (10:25→22:11)
[2021-08-03] MEDS: Lisinopril 20 MG TAB PO SCH (10:26)
[2021-08-03] MEDS: Lantus 1000 UNITS/10 ML VIAL SC SCH ×2 (10:27→22:12)
[2021-08-03] MEDS: Famotidine 20 MG TAB PO SCH ×2 (10:27→22:11)
[2021-08-03] MEDS: Metamucil PACK PER TUBE SCH (10:36)
[2021-08-03] MEDS: Senokot S 8.6-50 MG TAB PO SCH ×2 (13:06→22:12)
[2021-08-04] MEDS: Acetaminophen 325 MG TAB PO SCH ×5 (00:12→23:42)
[2021-08-04] MEDS: Acetaminophen/Codeine 30-300mg Tablet PO SCH ×5 (00:13→23:42)
[2021-08-04] MEDS: cloNIDine 0.1 MG TAB PO SCH ×5 (00:13→23:42)
[2021-08-04] MEDS: HumaLOG 300 UNITS/3 ML VIAL SC PRN ×5 (00:15→16:39)
[2021-08-04] MEDS: Senokot S 8.6-50 MG TAB PO SCH ×2 (08:55→19:41)
[2021-08-04] MEDS: Lantus 1000 UNITS/10 ML VIAL SC SCH ×3 (08:55→19:41)
[2021-08-04] MEDS: Silver Sulfadiazine 50 GM TUBE TOP SCH ×2 (08:56→19:41)
[2021-08-04] MEDS: Metamucil PACK PER TUBE SCH (08:56)
[2021-08-04] MEDS: Gabapentin 300 MG CAP PO SCH ×3 (08:56→19:41)
[2021-08-04] MEDS: Famotidine 20 MG TAB PO SCH ×2 (08:56→19:41)
[2021-08-04] MEDS: Cyclobenzaprine 10 MG TAB PO PRN (08:58)
[2021-08-04] MEDS: Bacitracin Zinc Ointment 30 gm TUBE TOP SCH ×2 (08:58→19:42)
[2021-08-04 10:14] LABS: Anion Gap 11 mmol/L (10-20); BUN (Urea Nitrogen) 11 mg/dL (8.9-20.6); Calc. Creatinine Clearance 217 mL/min (70-130); Carbon Dioxide 33 mmol/L (22-29); Chloride 98 mmol/L (98-107); Glucose 310 mg/dL (70-105); Magnesium 1.9 mg/dL (1.6-2.6); Phosphorus 3.7 mg/dL (2.3-4.7); Potassium 4.1 mmol/L (3.5-5.1); Sodium 138 mmol/L (136-145)
[2021-08-04] MEDS ORDERED: Lantus 1000 UNITS/10 ML VIAL SC SCH (11:30)
[2021-08-04] MEDS: Ondansetron PF 4 MG/2 ML Vial IVP PRN (12:04)
[2021-08-04] MEDS: Lisinopril 20 MG TAB PO SCH (14:29)
[2021-08-05] MEDS: Cyclobenzaprine 10 MG TAB PO PRN ×2 (00:16→08:46)
[2021-08-05 05:06] VITALS: BMI 33.3
[2021-08-05] MEDS: cloNIDine 0.1 MG TAB PO SCH ×3 (05:40→16:56)
[2021-08-05] MEDS: Acetaminophen/Codeine 30-300mg Tablet PO SCH ×3 (05:41→16:56)
[2021-08-05] MEDS: Acetaminophen 325 MG TAB PO SCH ×3 (05:41→16:56)
[2021-08-05] MEDS: HumaLOG 300 UNITS/3 ML VIAL SC PRN ×2 (05:44→12:43)
[2021-08-05] MEDS: Silver Sulfadiazine 50 GM TUBE TOP SCH (08:45)
[2021-08-05] MEDS: Bacitracin Zinc Ointment 30 gm TUBE TOP SCH (08:45)
[2021-08-05] MEDS: Famotidine 20 MG TAB PO SCH (08:46)
[2021-08-05] MEDS: Senokot S 8.6-50 MG TAB PO SCH (08:46)
[2021-08-05] MEDS: Lisinopril 20 MG TAB PO SCH (08:46)
[2021-08-05] MEDS: Metamucil PACK PER TUBE SCH (08:46)
[2021-08-05] MEDS: Gabapentin 300 MG CAP PO SCH ×2 (08:47→16:02)
[2021-08-05] MEDS: Lantus 1000 UNITS/10 ML VIAL SC SCH (08:47)
[2021-08-05] MEDS: Scopolamine 1.5 mg/72 hour Patch TD SCH (15:58)
[2021-08-05 17:02] VITALS: BP 133/88; TEMP 98.2
== END 2021-08-05 19:14 | disposition home or self-care (01) | DRG 562 ==
LOC: ERS 15:15 → CCU 16:50 → SURG A 23:53
PROVIDERS: ADMIT Surgery; ATTEND Surgery
DX: S52.134A Nondisplaced fracture of neck of right radius, initial encounter for closed fracture (principal); S06.5X0A Traumatic subdural hemorrhage without loss of consciousness, initial encounter; S06.6X0A Traumatic subarachnoid hemorrhage without loss of consciousness, initial encounter; B20 Human immunodeficiency virus [HIV] disease; S02.85XA Fracture of orbit, unspecified, initial encounter for closed fracture; S02.19XA Other fracture of base of skull, initial encounter for closed fracture; S02.82XA Fracture of other specified skull and facial bones, left side, initial encounter for closed fracture; E11.9 Type 2 diabetes mellitus without complications; G93.89 Other specified disorders of brain; V29.49XA Motorcycle driver injured in collision with other motor vehicles in traffic accident, initial encounter; Z91.19 Patient's noncompliance with other medical treatment and regimen; Z79.4 Long term (current) use of insulin; Z79.899 Other long term (current) drug therapy
CPT/HCPCS: 36415; 36416; 70450; 70486; 71045; 71260; 72125; 72170; 74177; 80048; 80053; 80306; 82010; 82550; 83036; 83735; 84100; 84484; 85007; 85025; 85027; 85610; 85730; 86850; 86900; 86901; 90471; 90715; 96365; 96375; G0390; J0690; J1170; J1815; J1885; J2270; J2405; J2550; J3010; J7050; J8540; Q9967; S0028; U0002

== ENCOUNTER 2021-08-10 06:32 | Inpatient (IN) | payer OTHER, BC ==
[2021-08-10 06:56] LABS: #Lymphocytes 1.2 thou/uL (1.20-3.40); #Monocytes 0.4 thou/uL (0.11-0.59); #Neutrophils 5.1 thou/uL (1.40-6.50); %Basophils 0.1 % (0.0-1.0); %Eosinophils 0.4 % (0.0-10.0); %Lymphocytes 17.9 % (21.0-51.0); %Monocytes 5.3 % (0.0-10.0); %Neutrophils 76.2 % (42.0-75.0); Mean Corpuscular HGB CONC 33.3 g/dL (32.0-36.0); Mean Corpuscular Hemoglobin 25.5 pg (27.0-31.0); Mean Corpuscular Volume 76.8 fL (78.0-98.0); Mean Platelet Volume 7.5 fL (7.4-10.4); Platelet Count 139 thou/uL (130-400); RBC Distribution Width 13.1 % (11.5-14.5); Red Blood Cell (RBC) Count 6.26 mill/uL (4.70-6.10); White Blood Cell (WBC) Count 6.7 thou/uL (4.8-10.8)
[2021-08-10 07:04] LABS: PTT 29.3 sec (22.9-36.1)
[2021-08-10] MEDS ORDERED: Acetaminophen 500 MG TAB ONE (07:05)
[2021-08-10 07:10] LABS: ALT (SGPT) 26 U/L (8-55); AST (SGOT) 15 U/L (5-34); Albumin 4.3 g/dL (3.5-5.0); Alkaline Phosphatase 97 U/L (40-110); Anion Gap 13 mmol/L (10-20); BUN (Urea Nitrogen) 12 mg/dL (8.9-20.6); Bilirubin, Total 1.3 mg/dL (0.2-1.2); Calc. Creatinine Clearance 0 mL/min (70-130); Calcium 9.9 mg/dL (7.8-10.44); Carbon Dioxide 29 mmol/L (22-29); Chloride 94 mmol/L (98-107); Glucose 304 mg/dL (70-105); Protein, Total 7.3 g/dL (6.0-8.3); Sodium 131 mmol/L (136-145)
[2021-08-10] MEDS ORDERED: Ondansetron PF 4 MG/2 ML Vial ONE (07:22)
[2021-08-10] MEDS ORDERED: Ondansetron PF 4 MG/2 ML Vial IVP PRN (07:31)
[2021-08-10] MEDS ORDERED: Ondansetron ODT 4 MG TAB PO PRN (07:31)
[2021-08-10] MEDS ORDERED: Promethazine HCl 25 MG/ML VIAL IM PRN ×2 (07:31)
[2021-08-10] MEDS ORDERED: Dextrose 5% in Water 1,000 ML IV PRN (07:31)
[2021-08-10] MEDS ORDERED: Dextrose 50% Abboject 50 ML SYRINGE SLOW IVP PRN (07:31)
[2021-08-10 08:38] LABS: SARS-CoV-2 NAA Rapid Test DETECTED (NotDetected)
[2021-08-10] MEDS: Famotidine 20 MG TAB PO SCH ×2 (08:50→21:45)
[2021-08-10] MEDS: Morphine 4 MG/ML VIAL SLOW IVP PRN ×4 (08:51→14:04)
[2021-08-10] MEDS: Sodium Chloride 0.9% 1,000 ML IV SCH ×2 (08:56→16:01)
[2021-08-10] MEDS: hydrALAZINE 20 MG/ML VIAL SLOW IVP PRN ×2 (09:39→21:46)
[2021-08-10 09:56] VITALS: BMI 34.4
[2021-08-10 11:38] LABS: Bacteria/HPF None Seen HPF (None Seen); Bilirubin Negative (Negative); Blood, Urine Negative (Negative); Clarity Clear (Clear); Glucose, Urine (Dipstick) Greater than 1000 mg/dL (Negative); Ketone, Urine 10 mg/dL (Negative); Leukocyte Negative Leu/uL (Negative); Nitrite Negative (Negative); Protein, Urine (Dipstick) 10 mg/dL (Neg-Trace); RBC/HPF 0-3 HPF (0-3); Specific Gravity, Urine 1.025 (1.002-1.036); Squamous Epithelial 0-3 HPF (0-3); Urobilinogen Normal mg/dL (Less than 2); WBC/HPF None Seen HPF (0-3); pH, Urine 5.5 (5.0-9.0)
[2021-08-10 13:41] LABS: SARS-CoV-2 NAA Rapid Test Not Detected (NotDetected)
[2021-08-10] MEDS: Acetaminophen 500 MG TAB PO SCH ×2 (16:05→21:46)
[2021-08-10] MEDS: traMADol HCl 50 MG TAB PO SCH ×2 (16:06→21:45)
[2021-08-10 16:56] LABS: Amphetamine Not Detected (NotDetected); Barbiturates Screen Not Detected (NotDetected); Benzodiazepine Screen Not Detected (NotDetected); Cocaine Metabolite Screen Not Detected (NotDetected); Methadone Not Detected (NotDetected); Methamphetamine Not Detected (NotDetected); Opiate Screen Detected (NotDetected); Oxycodone Screen Not Detected (NotDetected); Phencyclidine (PCP) Not Detected (NotDetected); THC/Cannabinoid Screen Not Detected (NotDetected); Tricyclic Screen Detected (NotDetected)
[2021-08-10] MEDS ORDERED: Dexamethasone 4 mg/ml Vial SLOW IVP SCH (18:15)
[2021-08-10] MEDS ORDERED: diphenhydrAMINE 50 MG/ML VIAL IVP SCH (18:15)
[2021-08-10 19:41] LABS: SARS-CoV-2 IgG Ab Non-Reactive (NonReactive)
[2021-08-10] MEDS: HumaLOG 300 UNITS/3 ML VIAL SC PRN (21:47)
[2021-08-10] MEDS: Lantus 1000 UNITS/10 ML VIAL SC SCH (21:47)
[2021-08-11] MEDS: Acetaminophen 500 MG TAB PO SCH ×2 (04:23→08:30)
[2021-08-11] MEDS: traMADol HCl 50 MG TAB PO SCH (04:23)
[2021-08-11] MEDS: HumaLOG 300 UNITS/3 ML VIAL SC PRN ×4 (06:00→22:02)
[2021-08-11 08:13] LABS: #Monocytes 0.4 thou/uL (0.11-0.59); #Neutrophils 5.7 thou/uL (1.40-6.50); %Basophils 0.1 % (0.0-1.0); %Eosinophils 0.3 % (0.0-10.0); %Lymphocytes 14.1 % (21.0-51.0); %Monocytes 5.7 % (0.0-10.0); %Neutrophils 79.8 % (42.0-75.0); Hemoglobin 15.9 g/dL (14.0-18.0); Mean Corpuscular HGB CONC 34.7 g/dL (32.0-36.0); Mean Corpuscular Hemoglobin 26.3 pg (27.0-31.0); Mean Corpuscular Volume 75.9 fL (78.0-98.0); Mean Platelet Volume 7.5 fL (7.4-10.4); Platelet Count 161 thou/uL (130-400); RBC Distribution Width 13.1 % (11.5-14.5); Red Blood Cell (RBC) Count 6.02 mill/uL (4.70-6.10); White Blood Cell (WBC) Count 7.2 thou/uL (4.8-10.8)
[2021-08-11 08:33] LABS: Anion Gap 15 mmol/L (10-20); BUN (Urea Nitrogen) 14 mg/dL (8.9-20.6); Calc. Creatinine Clearance 180 mL/min (70-130); Calcium 10.5 mg/dL (7.8-10.44); Carbon Dioxide 25 mmol/L (22-29); Chloride 97 mmol/L (98-107); Glucose 308 mg/dL (70-105); Potassium 4.6 mmol/L (3.5-5.1); Sodium 132 mmol/L (136-145)
[2021-08-11] MEDS: Lisinopril 5 MG TAB PO SCH ×2 (10:06→11:26)
[2021-08-11] MEDS: Famotidine 20 MG TAB PO SCH ×3 (10:06→20:10)
[2021-08-11] MEDS: Acetaminophen/Codeine 30-300mg Tablet PO SCH ×4 (10:09→23:50)
[2021-08-11] MEDS: Lantus 1000 UNITS/10 ML VIAL SC SCH ×2 (10:51→20:11)
[2021-08-11] MEDS: Acetaminophen 325 MG TAB PO SCH ×3 (15:44→23:49)
[2021-08-11] MEDS: Acetaminophen/Codeine 30-300mg Tablet PO PRN (20:10)
[2021-08-12] MEDS: Acetaminophen/Codeine 30-300mg Tablet PO PRN (03:08)
[2021-08-12] MEDS: Acetaminophen 325 MG TAB PO SCH ×2 (06:23→11:52)
[2021-08-12] MEDS: Acetaminophen/Codeine 30-300mg Tablet PO SCH ×2 (06:23→11:51)
[2021-08-12] MEDS: HumaLOG 300 UNITS/3 ML VIAL SC PRN ×4 (06:24→16:15)
[2021-08-12] MEDS: Lisinopril 5 MG TAB PO SCH (08:10)
[2021-08-12] MEDS: Famotidine 20 MG TAB PO SCH (08:11)
[2021-08-12] MEDS: Lantus 1000 UNITS/10 ML VIAL SC SCH (08:16)
[2021-08-12] MEDS ORDERED: Dexamethasone 10 MG in Sodium Chloride 0.9% 50 ML IVPB SCH (12:00)
[2021-08-12] MEDS ORDERED: diphenhydrAMINE 50 MG/ML VIAL IVP SCH (12:00)
[2021-08-12] MEDS ORDERED: Dexamethasone 4 mg/ml Vial SLOW IVP SCH (12:15)
[2021-08-12 16:07] VITALS: BP 132/94; TEMP 98.3
== END 2021-08-12 18:18 | disposition home or self-care (01) | DRG 82 ==
LOC: ERS 06:32 → CCU 07:31 → SURG A 18:05
PROVIDERS: ADMIT Surgery; ATTEND Surgery
PROC: 8E0ZXY6 Isolation (ICD-10-PCS; principal; 2021-08-10)
PROC: 3E0333Z Introduction of Anti-inflammatory into Peripheral Vein, Percutaneous Approach (ICD-10-PCS; 2021-08-10)
DX: S06.5X9A Traumatic subdural hemorrhage with loss of consciousness of unspecified duration, initial encounter (principal); S06.A0XA Traumatic brain compression without herniation, initial encounter; B20 Human immunodeficiency virus [HIV] disease; F07.81 Postconcussional syndrome; Z20.822 Contact with and (suspected) exposure to COVID-19; S06.6X9A Traumatic subarachnoid hemorrhage with loss of consciousness of unspecified duration, initial encounter; S02.19XA Other fracture of base of skull, initial encounter for closed fracture; G44.309 Post-traumatic headache, unspecified, not intractable; E11.9 Type 2 diabetes mellitus without complications; R40.2412 Glasgow coma scale score 13-15, at arrival to emergency department; W18.30XA Fall on same level, unspecified, initial encounter; Z79.899 Other long term (current) drug therapy; Z79.84 Long term (current) use of oral hypoglycemic drugs; Z79.4 Long term (current) use of insulin; Z91.14 Patient's other noncompliance with medication regimen
CPT/HCPCS: 36415; 36416; 70450; 80048; 80053; 80306; 81001; 83605; 84146; 85025; 85610; 85730; 86769; 86850; 86900; 86901; 93005; J0360; J0780; J1100; J1200; J1815; J2270; J2405; J2550; J7050; U0002